=== PATIENT | female | born 1995 | race Caucasian/White ===

== ENCOUNTER 2025-06-14 19:25 | Inpatient (IN) | payer OTHER, SELFPAY ==
[2025-06-14 19:20] VITALS: BMI 41.3
--- OUTSIDE RECORDS SUMMARY | 2025-06-14 19:29 | XMS RPT_ITS | CCD ---
Author Organization [facility] Inform ion [facility] Care Team Providers Care Gem Setter Name Role Phone LowellBrian blanchard Unavailable Unavailable Asia Jason Unavailable Unavailable Maryjane Jasonn Unavailable Unavailable ALBERT MANAGER GENERATION-CAR REPOSSESSOR, SUSY S Primary Care Physicia n Unavailable Primary Care Provider Unavailabl e Unavailable Primary Care Provider Unavailabl e ALBERT MANAGER GENERATION-CAR REPOSSESSOR, SUSY S Primary Care Unava ilable IVAN MANAGER GENERATION-CAR REPOSSESSORSOFIA Attending Unavailab good Albert CAR REPOSSESSOR, Susy S Primary Care Provider FABIAN, MARY KATE Referring Unavailable ALBERT, SUSY S Primary Care Unavailable SUSY MADDOX Attending Unavailable FABIAN, MARY KATE Referring Unavailable ALBERT, SUSY S Primary Care Unavailable FABIAN, MARY KATE Referring Unavailable ALBERT, SUSY S Primary Care Unavailable SUSY MADDOX Attending Unavailable FABIAN, MARY KATE Referring Unavailable ALBERT, SUSY S Primary Care Unavailable LEI, DAYLIN Referring Unavailable ALBERT, SUSY S Primary Care Unavailable KATLIN BURNS Attending Unavailable WISWELL, AMRITA Referring Unavailable ALBERT, SUSY S Primary Care Unavailable WISWELL, AMRITA Referring Unavailable ALBERT, SUSY S Primary Care Unavailable KAITLIN TALLEY Attending Unavailable LEI, DAYLIN Referring Unavailable ALBERT, SUSY S Primary Care Unavailable FABIAN, MARY KATE Attending Unavailable SELF Referring Unavailable ALBERT, SUSY S Primary Care Unavailable FABIAN, MARY KATE Referring Unavailable ALBERT, SUSY S Primary Care Unavailable LEI, DAYLIN Referring Unavailable ALBERT, SUSY S Primary Care Unavailable August, Referring Unavailable ALBERT, SUSY S Primary Care Unavailable WISWELL, AMRITA Attending Unavailable ALBERT, SUSY S Primary Care Unavailable AMRITA SULLIVAN Attending Unavailable MARY KATE PERALTA Referring Unavailable SUSY PRICE Primary Care Unavailable DAYLIN LOPEZ Attending Unavailable MARY KATE PERALTA Referring Unavailable SUSY PRICE Primary Care Unavailable Allergies Allergy Classification Reported Allergen(s) Allergy Type Date of Onset Reaction(s) Facility (5 sources) Amoxicillin / Clavulanate; Translations: [amoxicillin-cla vulanate] Drug Allergy vomiting [facility] (18 sources) Amoxicillin; Translations: [AMOXICILLIN] Drug Allergy 11-26-2018 GI Upset, Vomiting [facility] Medications Current Medications Medication Drug Class(es) Dates Sig (Normalized) Sig (Original) acetaminophen 500 mg oral tablet (1 source) Start: 05-14-2024 take 1 mg by mouth every six hours as needed for fever acetaminophen 500 mg oral tablet mg = tab(s), Oral, q6hr, PRN as needed for fever, 0 Refill(s) Start Date: 05/14/24 Status: Ordered Repeat number: 1 aspirin 81 mg delayed release oral tablet (15 sources) Platelet Aggregation Inhibitor, Nonsteroidal Anti-inflammatory Drug Start: 11-03-2024 take 1 tablet by mouth once daily aspirin, enteric coated (ECOTRIN LOW STRENGTH) 81 mg EC tablet Indications: with uncertain dates, antepartum (HCC) Take 1 tablet by mouth once daily. 90 tablet 3 11/03/2024 Active azithromycin 500 mg oral tablet (1 source) Macrolide Antimicrobial Start: 06-15-2021 End: 06-18-2021 Zithromax 500 mg oral tablet Dose : 500 mg = 1 tab(s), Oral, qDay, X 3 day(s), # 3 tab(s), 0 Refill(s), 06/18/21 14:30:00 EST, Pharmacy: [id number], 160, cm, 06/09/21 8:22:00 EST, Height, 100, kg, 06/09/21 8:22:00 EST, Dosing Weight Start Date: 06/15/21 Stop Date: 06/18/21 Status: Ordered busPIRone hydrochloride 15 mg oral tablet (5 sources) Start: 10-24-2022 End: 04-11-2024 take 1 tablet by mouth twice daily busPIRone (BUSPAR) 15 mg tablet Take 15 mg by mouth twice daily. 10/24/2022 04/11/2024 Discontinued Start: 08-11-2021 End: 01-28-2023 busPIRone 10 mg oral tablet Dose : 10 mg = 1 tab(s), Oral, BID, # 180 tab(s), 3 Refill(s), Pharmacy: [id number], 163, cm, 02/02/22 7:36:00 EDT, Height, kg, 02/02/22 7:36:00 EDT, Dosing Weight Start Date: 02/02/22 Stop Date: 01/28/23 Status: Ordered Comment on above: Take 15 mg by mouth twice daily. Take 10 mg by mouth twice daily. cephalexin 500 mg oral capsule (1 source) Cephalosporin Antibacterial Start: 06-13-2024 End: 06-20-2024 cephalexin 500 mg oral capsule Dose : 500 mg = 1 cap(s), Oral, q12h, X 7 day(s), # 14 cap(s), 0 Refill(s), 06/20/24 12:07:00 PM EST, Pharmacy: [id number], UTI (urinary tract infection), 163, cm, 06/13/24 11:39:00 EST, Height, 102.1, kg, 06/13/24 11:39:00 EST, Dosing Weight Start Date: 06/13/24 Stop Date: 06/20/24 Status: Ordered Quantity: 14.0 Unit: cap(s) Repeat number: 1 Indication: Urinary tract infection, site not specified {24 (drospirenone 3 MG / Ethinyl Estradiol 0.02 MG Oral Tablet) / 4 (Inert Ingredients 1 MG Oral Tablet) } Pack [Loryna Day] (3 sources) Progestin, Estrogen Start: 04-25-2024 Loryna 3 mg-0.02 mg oral tablet Dose = 1 tab(s), TAKE 1 TABLET BY MOUTH ONCE DAILY Start Date: 04/25/24 Status: Ordered Repeat number: 1 Start: 04-11-2024 End: 11-03-2024 take 1 tablet by mouth once daily Drospirenone-Ethinyl Estradiol (Sylvia CABALLERO,) 3-0.02 mg per tablet Indications: Encounter for gynecological examination (general) (routine) without abnormal findings Take 1 tablet by mouth once daily. 30 tablet 3 04/11/2024 11/03/2024 Discontinued Start: 04-11-2024 take 1 tablet by mike th once daily Drospirenone-Ethinyl Estradiol (FEDERICO, 28,) 3-0.02 mg per tablet Indications: Encounter for gynecological examination (general) (routine) without abnormal findings Take 1 tablet by mouth once daily. 30 tablet 3 04/11/2024 Active Ethinyl Estradiol / norgestimate (5 sources) Progestin, Estrogen Start: 10-31-2022 End: 04-11-2024 take 1 tablet by mouth once daily SPRINTEC 0.25-35 mg-mcg per tablet Take 1 tablet by mouth once daily. 28 tablet 11 10/31/2022 04/11/2024 Discontinued Start: 10-31-2022 take 1 tablet by mike th once daily SPRINTEC 0.25-35 mg-mcg per tablet Take 1 tablet by mouth once daily. 28 tablet 11 10/31/2022 Active Start: 09-06-2021 End: 10-31-2022 take 1 tablet by mouth once daily SPRINTEC 0.25-35 mg-mcg per tablet Take 1 tablet by mouth once daily. 28 tablet 11 09/06/2021 10/31/2022 Discontinued Start: 07-17-2019 [place]-Linyah 0. 25 mg-35 mcg oral tablet See Instructions, # 112 tab(s), Refill #: 3 Total Refills: 3, take 1 tablet by mouth once daily, DAMIAN URENA-[facility] Start Date: 07/17/19 Status: Ordered Comment on above: Take 1 tablet by mike th once daily. FLUoxetine 10 mg oral capsule (4 sources) Serotonin Reuptake Inhibitor Start: 03-06-2025 take 1 capsule by mouth once daily FLUoxetine (PROZAC) 10 mg capsule Take 1 capsule by mouth once daily. 90 capsule 1 03/06/2025 Active Start: 04-24-2023 End: 11-03-2024 take 1 capsule by mouth once daily FLUoxetine (PROZAC) 40 mg capsule Take 40 mg by mouth once daily. 06/21/2023 11/03/2024 Discontinued hyoscyamine sulfate 0.125 mg oral tablet (6 sources) Start: 02-02-2022 End: 04-11-2024 hyoscyamine (LEVSIN) 0.125 m g tablet 0.125 mg. 02/02/2022 04/11/2024 Discontinued Start: 10-25-2020 End: 10-20-2021 Levsin 0.125 mg oral tablet Dose : 0.125 mg = 1 tab(s), Oral, QID, # 40 tab(s), 11 Refill(s), Pharmacy: [facility], 160, cm, 10/25/20 14:34:00 EDT, Height, kg, 10/25/20 14:34:00 EDT, Dosing Weight Start Date: 10/25/20 Stop Date: 10/20/21 Status: Ordered Comment on above: 0.125 mg. Lactobac no.41/Bifidobact no.7 (PROBIOTIC-10 ORAL) (17 sources) take 1 tablet by mike th once daily Lactobac no.41/Bifidobact no.7 (PROBIOTIC-10 ORAL) Take 1 tablet by mouth once daily. Active Lactobac no.41/B ifidobact no.7 (PROBIOTIC-10 ORAL) Take by mouth. 0 Active Comment on above: Take by mouth. [place]-Linyah 0.25 mg-35 mcg oral tablet (2 sources) Start: 07-17-2019 [place] 0.25 mg-35 mcg oral tablet See Instructions, # 112 tab(s), Refill #: 3 Total Refills: 3, take 1 tablet by mouth once daily, DAMIAN URENA-1954 [facility] Start Date: 07/17/19 Status: Ordered Multivitamin preparation (5 sources) Start: 08-03-2020 take 1 tablet by mouth once daily Multivitamin Dose = 1 tab(s), Oral, Daily, 0 Refill(s) Start Date: 08/03/20 Status: Ordered Repeat number: 1 Start: 08-03-2020 take 1 tablet by mike th once daily Multivitamin Dose = 1 tab(s), Oral, Daily, 0 Refill(s) Start Date: 08/03/20 Status: Ordered Nasacort Allergy 24HR (1 source) Start: 04-24-2023 Nasacort Aller gy 24HR qDay, 0 Refill(s) Start Date: 04/24/23 Status: Ordered Repeat number: 1 PNV no.95/ferrous fum/folic ac ( ORAL) (10 sources) PNV no.95/ferrou s fum/folic ac ( ORAL) Take by mouth. Active predniSONE 10 mg oral tablet (1 source) Start: 06-15-2021 End: 06-21-2021 prednisone 10mg tab (TAPER) Taper 12-29-85-30-20-10 x 1 day, Oral, qAM, # 21 tab(s), 0 Refill(s), Pharmacy: [facility], 160, cm, 06/09/21 8:22:00 EST, Height, kg, 06/09/21 8:22:00 EST, Dosing Weight Start Date: 06/15/21 Stop Date: 06/21/21 Status: Ordered Probiotic (3 sources) Start: 08-11-2021 Probiotic 0 Re fill(s) Start Date: 08/11/21 Status: Ordered Repeat number: 1 Start: 08-11-2021 Probiotic 0 Re fill(s) Start Date: 08/11/21 Status: Ordered Promethazine (1 source) Phenothiazine Start: 06-09-2021 End: 06-16-2021 take 1 dose by mouth every six hours as needed for cough Promethazine DM 6.25 mg-15 mg/5 mL oral syrup Dose = 5 mL, Oral, q6h, PRN for cough, X 7 day(s), # 120 mL, 0 Refill(s), Pharmacy: [facility], Cough, 160, cm, 06/09/21 8:22:00 EST, Height, kg, 06/09/21 8:22:00 EST, Dosing Weight Start Date: 06/09/21 Stop Date: 06/16/21 Status: Ordered sulfamethoxazole 800 mg / trimethoprim 160 mg oral tablet (2 sources) Dihydrofolate Reductase Inhibitor Antibacterial, Sulfonamide Antimicrobial Start: 06-16-2024 End: 06-23-2024 take 1 tablet by mouth twice daily Bactrim DS 800 mg-160 mg oral tablet Dose = 1 tab(s), Oral, BID, X 7 day(s), # 14 tab(s), 0 Refill(s), Pharmacy: [facility], 163, cm, 06/13/24 11:39:00 EST, Height, 102.1, kg, 06/13/24 11:39:00 EST, Dosing Weight Start Date: 06/16/24 Stop Date: 06/23/24 Status: Ordered Quantity: 14.0 Unit: tab(s) Repeat number: 1 Start: 02-07-2022 End: 02-12-2022 take 1 tablet by mouth every twelve hours Bactrim DS 800 mg-160 mg oral tablet Dose = 1 tab(s), Oral, q12h, X 5 day(s), # 10 tab(s), 0 Refill(s), Pharmacy: [facility], 163, cm, 02/07/22 10:26:00 EDT, Height, 96.8 Start Date: 02/07/22 Stop Date: 02/12/22 Status: Ordered Triamcinolone (17 sources) Corticosteroid triamcinolone ac etonide (NASACORT NASAL) Use in the nose. Active triamcinolone ac etonide (NASACORT NASAL) Use in the nose. 0 Active Comment on above: Use in the nose. Completed/Discontinued Medications Medication Drug Class(es) Dates Sig (Normalized) Sig (Original) Multivitamin capsule (11 sources) End: 01-12-2025 take 1 capsule by mouth once daily Multivitamin capsule Take 1 capsule by mouth once daily. 01/12/2025 Discontinued take 1 capsule by mouth once pricilla ly Multivitamin capsule Take 1 capsule by mouth once daily. Active take 1 capsule by mouth once pricilla ly Multivitamin capsule Take 1 capsule by mouth once daily. 0 Active Comment on above: Take 1 capsule by mo ut once daily. Problems Active Problems Problem Classification Problem Date Documented Da te Episodic/Chronic Anxiety disorders (5 sources) Anxiety; Translations: [Generalized anxiety disorder] 08-04-2019 Chronic Comment on above: situational Diabetes or abnormal glucose tolerance complicating ; childbirth; or the puerperium (1 source) Abnormal glucose complicating ; Translations: [Abnormal glucose complicating (HCC)] Onset: 04-03-2025 Episodic Genitourinary symptoms and ill-defined conditions (2 sources) Painful micturition, unspecified; Translations: [Painful micturition, unspecified] Onset: 06-13-2024 Episodic Lymphadenitis (5 sources) Cervical lymphadenopathy 08-04-2019 Episodic Malaise and fatigue (3 sources) Fatigue 11-15-2021 Episodic Menstrual disorders (3 sources) Missed period 11-15-2021 Chronic Mood disorders (1 source) Mood disorders; Translations: [Depression affecting (HCC)] Onset: 03-06-2025 Other complications of (17 sources) Obesity; Translations: [Obesity complicating , unspecified trimester] Onset: 12-09-2024 12-09-2024 Chronic Other complications of (5 sources) Maternal obesity complicating , childbirth and the puerperium, antepartum; Translations: [Obesity complicating , second trimester] 02-02-2025 Chronic Other complications of (2 sources) Obesity complicating , unspecified trimester; Translations: [Severe obesity due to excess calories affecting , antepartum (HCC)] Onset: 12-09-2024 Chronic Other complications of (1 source) Obesity complicating , third trimester; Translations: [Obesity affecting in third trimester, unspecified obesity type (HCC)] Onset: 04-03-2025 Chronic Other complications of (1 source) Obesity complicating , second trimester; Translations: [Obesity affecting in second trimester, unspecified obesity type (HCC)] Onset: 02-02-2025 Chronic Other complications of (13 sources) Healthcare supervision finding; Translations: [Supervision of high risk due to social problems, unspecified trimester] Onset: 11-03-2024 11-03-2024 Episodic Other complications of (13 sources) Rubella non-immune; Translations: [Supervision of other high risk pregnancies, unspecified trimester] Onset: 12-11-2024 12-11-2024 Episodic Other complications of (2 sources) Depressive disorder in mother complicating ; Translations: [Other mental disorders complicating , unspecified trimester] Onset: 03-06-2025 03-06-2025 Episodic Other complications of (1 source) Supervision of high risk , unspecified, third trimester; Translations: [Supervision of high risk in third trimester (HCC)] Onset: 05-01-2025 Episodic Other complications of (1 source) Supervision of high risk , unspecified, second trimester; Translations: [Supervision of high risk in second trimester ([facility])] Onset: 04-03-2025 Episodic Other complications of (1 source) Other mental disorders complicating , unspecified trimester; Translations: [Depression affecting ([facility])] Onset: 03-06-2025 Episodic Other eye disorders (1 source) Disorder of eye 01-24-2023 Episodic Other gastrointestinal disorders (5 sources) Irritable bowel syndrome 08-04-2019 Chronic Other nutritional; endocrine; and metabolic disorders (1 source) Morbid (severe) obesity due to excess calories; Translations: [Severe obesity due to excess calories affecting , antepartum ([facility])] Onset: 05-01-2025 Chronic Other nutritional; endocrine; and metabolic disorders (1 source) Body mass index (BMI) 40.0-44.9, adult; Translations: [BMI 40.0-44.9, adult ([facility])] Onset: 05-01-2025 Chronic Other nutritional; endocrine; and metabolic disorders (1 source) Body mass index (BMI) 39.0-39.9, adult; Translations: [BMI 39.0-39.9,adult] Onset: 11-03-2024 Chronic Other screening for suspected conditions (not mental disorders or infectious disease) (5 sources) Cancer cervix screening status; Translations: [Encounter for screening for malignant neoplasm of cervix] Onset: 11-03-2024 11-03-2024 Episodic Other upper respiratory disease (1 source) Nasal sinus problem 08-04-2022 Episodic Other upper respiratory infections (3 sources) Acute maxillary sinusitis; Translations: [Upper respiratory infection] 05-14-2024 Episodic Residual codes; unclassified (4 sources) Gestation period, 7 weeks; Translations: [Less than 8 weeks gestation of ] 11-03-2024 Episodic Residual codes; unclassified (1 source) Gestation period, 16 weeks; Translations: [16 weeks gestation of ] 01-08-2025 Episodic Residual codes; unclassified (1 source) Gestation period, 17 weeks; Translations: [17 weeks gestation of ] 01-12-2025 Episodic Residual codes; unclassified (2 sources) Gestation period, 20 weeks; Translations: [20 weeks gestation of ] 02-02-2025 Episodic Residual codes; unclassified (1 source) Gestation period, 23 weeks; Translations: [23 weeks gestation of ] 02-26-2025 Episodic Residual codes; unclassified (1 source) 32 weeks gestation of ; Translations: [32 weeks gestation of (HCC)] Onset: 05-01-2025 Episodic Residual codes; unclassified (1 source) 23 weeks gestation of ; Translations: [23 weeks gestation of (HCC)] Onset: 04-03-2025 Episodic Residual codes; unclassified (1 source) 28 weeks gestation of ; Translations: [28 weeks gestation of (HCC)] Onset: 04-03-2025 Episodic Unclassified (15 sources) [facility] Education - COMMON Onset: 11-03-2024 11-03-2024 Unclassified (15 sources) Education - [place] Onset: 11-03-2024 11-03-2024 Unclassified (1 source) Rubella non-immune status, antepartum (HCC); Translations: [Rubella non-immune status, antepartum ([facility])] Onset: 12-11-2024 Urinary tract infections (1 source) Urinary tract infectious disease 02-07-2022 Episodic Past or Other Problems Problem Classification Problem Date Documented Date Episodic/Chronic Cancer of cervix (8 sources) Atypical squamous cells of undetermined significance on cervical Papanicolaou smear; Translations: [Atypical squamous cells of undetermined significance on cytologic smear of cervix ([facility]-US)] Onset: 02-02-2025 01-04-2025 Episodic Immunizations and screening for infectious disease (9 sources) Patient encounter status; Translations: [Encounter for screening for infections with a predominantly sexual mode of transmission] Onset: 11-03-2024 04-11-2024 Episodic Other complications of (7 sources) High risk ; Translations: [Supervision of high risk , unspecified, second trimester] Onset: 11-03-2024 02-02-2025 Episodic Other complications of (1 source) Supervision of high risk due to social problems, unspecified trimester; Translations: [Supervision of high risk due to social problems, antepartum (HCC)] Onset: 02-02-2025 Episodic Other complications of (1 source) Supervision of other high risk pregnancies, unspecified trimester; Translations: [Rubella non-immune status, antepartum (HCC)] Onset: 12-11-2024 Episodic Other nutritional; endocrine; and metabolic disorders (16 sources) Body mass index 30+ - obesity; Translations: [Body mass index (BMI) 39.0-39.9, adult] Onset: 11-03-2024 Resolved: 02-02-2025 11-03-2024 Chronic Other and delivery including normal (2 sources) with uncertain dates; Translations: [Encounter for supervision of normal , unspecified, unspecified trimester] Onset: 12-09-2024 11-03-2024 Episodic Residual codes; unclassified (1 source) Less than 8 weeks gestation of ; Translations: [7 weeks gestation of (HCC)] Onset: 02-02-2025 Episodic Residual codes; unclassified (1 source) 20 weeks gestation of ; Translations: [20 weeks gestation of (HCC)] Onset: 02-02-2025 Episodic Residual codes; unclassified (1 source) 17 weeks gestation of ; Translations: [17 weeks gestation of (HCC)] Onset: 01-12-2025 Episodic Sexually transmitted infections (not HIV or hepatitis) (1 source) Cervical high risk human papillomavirus (HPV) DNA test positive; Translations: [ASCUS with positive high risk HPV cervical] Onset: 02-02-2025 Episodic Results Test Name Value Interpretation Reference Range Facility GLUCOSE GESTATIONAL, 1 HOURo n 04-08-2025 Glucose 1 Hr post Unsp challenge [Mass/Vol] 129 mg/dL Normal 74-179 [facility] Comment on above: Order Comment: Speci men Type: BLOOD SPECIMENOrdering Facility: [facility] Address: [address] [place] [address] Result Comment: [facility] Congress of Obstetricians and Gynecologists (Ashlyn/Parth) guidelines state gestational diabetes mellitus is present when 2 or more of the plasma glucose concentrations meet or exceed the following levels: fastin mg/dl, 1 hr: 180 mg/dl, 2 hr: 155 mg/dl, and 3 hr: 140 mg/dl. Performed By: #### G TGST1 ####[facility] FANNY NOONANJOSH [id number] [place] [address] [place] GLUCOSE GESTATIONAL, 2 HOURo n 04-08-2025 Glucose 2 Hr post Unsp challenge [Mass/Vol] 149 mg/dL Normal 74-154 [facility] Comment on above: Order Comment: Daron miramontes Type: BLOOD SPECIMENOrdering Facility: [facility] Address: [address] [place] [address] Result Comment: [facility] Congress of Obstetricians and Gynecologists (Goldberg/Boomstan) guidelines state gestational diabetes mellitus is present when 2 or more of the plasma glucose concentrations meet or exceed the following levels: fastin mg/dl, 1 hr: 180 mg/dl, 2 hr: 155 mg/dl, and 3 hr: 140 mg/dl. Performed By: #### G TGST2 ####[facility] [id number] [place] [address] [place] GLUCOSE GESTATIONAL, 3 HOURo n 04-08-2025 Glucose 3 Hr post Unsp challenge [Mass/Vol] 138 mg/dL Normal 74-139 [facility] Comment on above: Order Comment: Daron miramontes Type: BLOOD SPECIMENOrdering Facility: [facility] Address: [address] [place] [address] Result Comment: [facility] Congress of Obstetricians and Gynecologists ([facility]) guidelines state gestational diabetes mellitus is present when 2 or more of the plasma glucose concentrations meet or exceed the following levels: fastin mg/dl, 1 hr: 180 mg/dl, 2 hr: 155 mg/dl, and 3 hr: 140 mg/dl. Performed By: #### G TGST3 ####[facility] [id number] [place] [address] [place] GLUCOSE GESTATIONAL, FASTING on 04-08-2025 Glucose post fast [Mass/Vol] 86 mg/dL Normal 74-94 [facility] Comment on above: Order Comment: Daron miramontes Type: BLOOD SPECIMENOrdering Facility: [facility] Address: [address] [place] [address] Result Comment: [facility] Congress of Obstetricians and Gynecologists ([place]berg/Coustan) guidelines state gestational diabetes mellitus is present when 2 or more of the plasma glucose concentrations meet or exceed the following levels: fastin mg/dl, 1 hr: 180 mg/dl, 2 hr: 155 mg/dl, and 3 hr: 140 mg/dl. Performed By: #### G [facility] ####[facility] FANNY GOFF [id number] [place] [id number] [place] Mira 04-07-2025 CNPN Telephone (OBGYWM) JES FRANKS ([id number]) 1995 F Date Time Provider Department 04/07/25 KATLIN BURNS OBASHLEE During your visit today, we recorded the following information about you: Viry Hancock RN 04/07/2025 10:29 AM Signed S: Pt calling stating she has not felt well the past few days. 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 Feels weak. When sitting feels fine. Pt states she failed 1 hr gtt, but has not had 3 hr test done yet. Pt voiced that baby was active, denied vaginal bleeding/abdominal pain. Pt left work yesterday because she felt so bad. B: 29w1d. 1 Hr Fpz=[id number]. 3 hr gtt scheduled 04/08/25. A: Pt denies having passed out. Denies headaches/ denies blood pressure issues stating once she was being monitored for BP issues, but anxiety was the problem-then was restarted on Prozac on 03/06/25 AND BP has since improved.States this AM she ate ate oyster crackers with dry ranch seasoning/has not had any protein. Pt states she feels hydrated. R: Advised Pt that 3 hr test needs completed, and scheduled for tomorrow morning at 7:45am. Reviewed instructions for test with patient. Advised that patient limit carbohydrates and eat diet high in protein, stay hydrated, rest, and if she experiencing extreme dizziness/lightheade dness or has any near passing out episodes that she needs to go to the ER. Informed Pt that message would be routed to o/c provider to inform her of this and if additional guidance was to be given, we would call her. Please advise. FARIDA Viveros Karmon, MD 04/07/2025 12:10 PM Signed I agree with recommendations for eating protein rich snacks AND staying hydrated. Patient could have a mild viral illness. If she is not feeling well she may want to delay her 3hr GTT a few days or until next week. MD Sander Conte Jennifer, RN 04/07/2025 12:17 PM Signed Patient notified. States she wants to keep her lab appt tomorrow. Daylin Boucher RN Allergies As of Date: 04/07/2025 Noted Allergy Reaction AMOXICILLIN 11/26/2018 8 - GI Upset 11 - Vomiting Date Reviewed: 04/03/2025 Reviewed by: Katlin Burns MD - Fully Assessed Prescriptions as of 04/07/2025 - FLUoxetine (PROZAC) 10 mg capsule Take 1 capsule by mouth once daily. - PNV no.95/ferrous fum/folic ac ( ORAL) Take by mouth. - aspirin, enteric coated (ECOTRIN LOW STRENGTH) 81 mg EC tablet Take 1 tablet by mouth once daily. - triamcinolone acetonide (NASACORT NASAL) Use in the nose. - Lactobac no.41/Bifidobact no.7 (PROBIOTIC-10 ORAL) Take 1 tablet by mouth once daily. Problem List As Of Date 04/07/2025 Noted Resolved Supervision of high risk in second tr*11/03/2024 BMI 39.0-39.9,adult [Z68.39] 11/03/2024 02/02/2025 Obesity in (HCC) [O99.210] 12/09/2024 Rubella non-immune status, antepartum (HCC) [Z3*12/11/2024 ASCUS with positive high risk HPV cervical [R87*02/26/2025 Depression affecting (HCC) [O99.340, *03/06/2025 Abnormal glucose complicating (HCC) [*04/03/2025 Encounter Status:Closed by DAYLIN BOUCHER on 04/07/25 Normal [facility] CBC panel Auto (Bld)on 04-03 Erythrocyte distribution width (RBC) [Ratio] 13.4 % Normal 11.5-15.0 [facility] Comment on above: Order Comment: Speci men Type: BLOOD SPECIMENOrdering Facility: [facility] Address: [address] [place] [address] Performed By: #### 5 8410-2 ####[facility] [id number] [place] [address] [place] Hematocrit (Bld) [Volume fraction] 35.1 % Low 36.0-46.0 [facility] Comment on above: Order Comment: Speci men Type: BLOOD SPECIMENOrdering Facility: [facility] Address: [address] [place] [address] Performed By: #### 5 8410-2 ####[facility] [id number] [place] [address] [place] Hemoglobin (Bld) [Mass/Vol] 11.8 g/dL Normal 11.5-15.5 [facility] Comment on above: Order Comment: Speci men Type: BLOOD SPECIMENOrdering Facility: [facility] Address: [address] [place] [address] Performed By: #### 5 8410-2 ####[facility] [id number] [place] [address] [place] MCH (RBC) [Entitic mass] 29.1 pg Normal 26.0-34.0 [facility] Comment on above: Order Comment: Speci men Type: BLOOD SPECIMENOrdering Facility: [facility] Address: [address] [place] [address] Performed By: #### 5 8410-2 ####[facility] [id number] [place] [address] [place] MCHC (RBC) [Mass/Vol] 33.6 g/dL Normal 30.5-36.0 [facility] Comment on above: Order Comment: Speci men Type: BLOOD SPECIMENOrdering Facility: [facility] Address: [address] [place] [address] Performed By: #### 5 8410-2 ####[facility] [id number] [place] [address] [place] MCV (RBC) [Entitic vol] 86.7 fL Normal 80.0-100.0 [facility] Comment on above: Order Comment: Speci men Type: BLOOD SPECIMENOrdering Facility: [facility] Address: [address] [place] [address] Performed By: #### 5 8410-2 ####[facility] [id number] [place] [address] [place] Nucleated RBC (Bld) [#/Vol] 10*3/uL Normal <0.01 [facility] Comment on above: Order Comment: Speci men Type: BLOOD SPECIMENOrdering Facility: [facility] Address: [address] [place] [address] Performed By: #### 5 8410-2 ####[facility] [id number] [place] [address] [place] Platelet mean volume (Bld) [Entitic vol] 9.7 fL Normal 9.0-12.7 [facility] Comment on above: Order Comment: Speci men Type: BLOOD SPECIMENOrdering Facility: [facility] Address: [address] [place] [address] Performed By: #### 5 8410-2 ####[facility] [id number] [place] [address] [place] Platelets (Bld) [#/Vol] 394 10*3/uL Normal 150-400 [facility] Comment on above: Order Comment: Speci men Type: BLOOD SPECIMENOrdering Facility: [facility] Address: [address] [place] [address] Performed By: #### 5 8410-2 ####[facility] [id number] [place] [address] [place] RBC (Bld) [#/Vol] 4.05 10*6/uL Normal 3.90-5.20 [facility] Comment on above: Order Comment: Speci men Type: BLOOD SPECIMENOrdering Facility: [facility] Address: [address] [place] [address] Performed By: #### 5 8410-2 ####[facility] [id number] [place] [address] [place] WBC (Bld) [#/Vol] 10.72 10*3/uL Normal 3.70-11.00 [facility] Comment on above: Order Comment: Speci men Type: BLOOD SPECIMENOrdering Facility: [facility] Address: [address] [place] [address] Performed By: #### 5 8410-2 ####[facility] [id number] [place] [address] [place] Mira 04-03-2025 DEBBIN Telephone (OBGYWM) JES FRANKS ([id number]) 1995 F Date Time Provider Department 04/03/25 AMRITA SULLIVAN During your visit today, we recorded the following information about you: Amrita Sullivan MD 04/03/2025 5:07 PM Signed See result note 3 hr GTT ordered Viry Hancock RN 04/03/2025 5:11 PM Signed Folkstr message sent to Pt. Viry Hancock RN Allergies As of Date: 04/03/2025 Noted Allergy Reaction AMOXICILLIN 11/26/2018 8 - GI Upset 11 - Vomiting Date Reviewed: 04/03/2025 Reviewed by: Katlin Burns MD - Fully Assessed Reason for Visit: Orders [681] Primary Visit Diagnosis:28 weeks gestation of (HCC) [Z3A.28] Other Visit Diagnosis:Abnormal glucose complicating ([facility]) [O99.810] Order(s):GEST GLUC RICK, 3-HR, 100 GM, FASTING [SQGTGST3] Order #: [id number] FUTURE Prescriptions as of 04/03/2025 - FLUoxetine (PROZAC) 10 mg capsule Take 1 capsule by mouth once daily. - PNV no.95/ferrous fum/folic ac ( ORAL) Take by mouth. - aspirin, enteric coated (ECOTRIN LOW STRENGTH) 81 mg EC tablet Take 1 tablet by mouth once daily. - triamcinolone acetonide (NASACORT NASAL) Use in the nose. - Lactobac no.41/Bifidobact no.7 (PROBIOTIC-10 ORAL) Take 1 tablet by mouth once daily. Problem List As Of Date 04/03/2025 Noted Resolved Supervision of high risk in second tr*11/03/2024 BMI 39.0-39.9,adult [Z68.39] 11/03/2024 02/02/2025 Obesity in (HCC) [O99.210] 12/09/2024 Rubella non-immune status, antepartum (HCC) [Z3*12/11/2024 ASCUS with positive high risk HPV cervical [R87*02/26/2025 Depression affecting (HCC) [O99.340, *03/06/2025 Abnormal glucose complicating ([facility]) [*04/03/2025 Encounter Status:Closed by AMRITA SULLIVAN on 04/03/25 Normal [facility] GESTATIONAL GLUCOSE SCREEN, 1-HOUR, 50 GRAM, NON-FASTINGon 04-03-2025 Glucose [Mass/Vol] 177 mg/dL High 74-134 [facility] Comment on above: Order Comment: Speci men Type: BLOOD SPECIMENOrdering Facility: [facility] Address: [address] [place] [address] Result Comment: Sara [facility] Congress of Obstetricians and Gynecologists (Ashlyn/Parth) guidelines state a gestational diabetes mellitus positive screen is made, in women not previously diagnosed with overt diabetes, when the 1 hr plasma glucose level is equal to or above 140 mg/dL. The [facility] Echo Vascular Technologist and [facility] [place] recommends a 135 mg/dL cutoff. Performed By: #### G LTGST ####[facility] [id number] [place] [address] [place] Reagin and Treponema pallidu m IgG and IgM [Interp]on 04-03-2025 T. pallidum IgG+IgM IA Ql (S) Non-Reactive Normal Nonreactive [facility] Comment on above: Order Comment: Speci men Type: BLOOD SPECIMENOrdering Facility: [facility] Address: [address] [place] [address] Performed By: #### 7 3752-8 ####[facility] [id number] [place] [address] [place] Reagin+T pallidum IgG+IgM Se rPl-Impon 04-03-2025 Reagin and Treponema pallidum IgG and IgM [Interp] Cannot exclude recent Treponemal infection if specimen collected within 7-10 days after appearance of suspect lesions or 2-3 weeks after an exposure. Clinical correlation is required. Normal [facility] Comment on above: Order Comment: Speci men Type: BLOOD SPECIMENOrdering Facility: [facility] Address: [address] [place] [address] Performed By: #### 7 3752-8 ####[facility] [id number] [place] [id number] [place] CNOVon 02-26-2025 CNOV Office Visit (OBGYWM) JES FRANKS ([id number]) 1995 F Date Time Provider Department 02/26/25 3:40 PM AMRITA SULLIVAN During your visit today, we recorded the following information about you: Blood pressure Weight 118/72 102.5 kg Shilpa JacquieYELENA wilson 02/26/2025 3:26 PM Signed YOUR RECOVERY It may take a few weeks for your cervix to heal. While your cervix heals, you may have: - Vaginal bleeding (less than a normal menstrual period) - Mild cramping - A brown-black vaginal discharge (similar to coffee grounds) which is a result of the paste used to help stop bleeding from the procedure Do NOT put anything in the vagina for 1 week after your colposcopy if your doctor does a biopsy of your cervix. This includes sex, tampons, and douches. If you have any discomfort, you may take an over the counter pain medication (motrin, advil, ibuprofen, tylenol, etc). If this does not relieve your discomfort, contact your doctor's office for a prescription strength pain medication. It is okay to wear a sanitary pad until the discharge and spotting stops. RISKS Although problems seldom occur with colposcopy, there can be some complications. You may feel faint during and shortly after the procedure as well as have some bleeding and vaginal discharge after the procedure. There is also a risk of infection after the procedure. These complications are rare and can be easily treated. You should contact you doctor is you have any of the following: - Heavy bleeding (more than your normal period) - Bleeding with clots - Severe abdominal pain - Fever (more than 100.4F) - Foul smelling vaginal discharge RESULTS If a biopsy was taken, we will have the results of your biopsy in 1-2 weeks. If you do not hear the results of your biopsy after 2 weeks, please contact your physicians office for the results. Depending on the biopsy results, your doctor will determine your follow up plan which may include further testing or treatments. STAYING HEALTHY After the procedure, you will need to see your doctor for follow up visits during the year. At these visits your doctor will check the health of your cervix with a pap smear. After three normal pap smears, your doctor will allow you to return to having exams once a year. If you have another abnormal pap smear, you may need closer follow up for longer or you may need additional treatment. By making a few lifestyle changes after the procedure, you can help protect the health of your cervix: - Have regular pelvic exams and pap smears as ordered by your doctor. - Stop smoking as smoking increases your risk of developing a cancer of the cervix - If you have more than one sexual partner, limit your number of partners and use condoms to reduce your risks of STDs. If you have any additional questions, please contact your doctor's office. Amrita Sullivan MD 02/26/2025 6:[address] Sql Programmer offered: Patient declines. Andre is a 29 year old who presents today for a colposcopy. The patient's last pap smear was ASCUS with positive HPV from October 2024. Patient has a history of abnormal pap: Yes. The patient has had prior treatment: none. 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 Appropriate PPE (Personal Protective Equipment) worn by all providers involved with the procedure. Special equipment not required. Patient/Surrogate Stated/Verified: Patient name, Date of , Relevant allergies, and The intended procedure Time Out: Relevant labs, photos, and/or imaging studies have been reviewed. Intended patient and procedure match the source document(s) (e.g. consent, HANDP, associated studies [imaging, pathology]) match the intended patient and procedure. Consent obtained and matches the intended procedure. Yes. Correct side/site is not applicable. Medications required for this procedure are verified. Fire risk assessed and is not applicable. Implants: are not applicable. Sign Out: Specimens not collected. All instruments, equipment, possible retained foreign bodies are accounted for. Yes. The post-procedure plan of care has been communicated to the patient or surrogate. PROCEDURE: EXTERNAL GENITALIA: Normal in appearance without lesions VAGINA: Normal in appearance without lesions CERVIX: Speculum placed in vagina and excellent visualization of cervix achieved. Cervix swabbed x 3 with 3% acetic acid solution. Cervix grossly normal. Squamocolumnar junction visualized. No punctations, mosaicism or atypical vasculature noted. Minimal acetowhite changes at the 12 o'clock position. BIOPSY: Not done. ECC: not done HEMOSTASIS: N/A Procedure Summary: Patient tolerated procedure well and colposcopy was adequate. (more content not included)... [facility] C[facility] Tele[facility] (OBGYWM) JES FRANKS ([id number]) 1995 F Date Time Provider Department 02/03/25 KATLIN BURNS OBLEILANIWJose During your visit today, we recorded the following information about you: Ruby Andre RN 02/03/2025 4:05 PM Signed Anatomy u/s reviewed. No abnormalities identified. Follow up as clinically indicated. Please notify patient and place on record. Recommendations Serial growth ultrasounds every 4 weeks. Weekly testing starting at 36 weeks. Additional follow-up as clinically indicated. Mary Kate Peralta, PRETTY.Ruby Montgomery RN 02/03/2025 4:05 PM Signed Patient needs order for q 4 week growth ultrasounds. Are they supposed to start now or at 32 weeks? FARIDA Piedra Karmon, MD 02/03/2025 4:27 PM Signed Should start at 32 weeks We can order these at a future visit. Katlin Burns MD Allergies As of Date: 02/03/2025 Noted Allergy Reaction AMOXICILLIN 11/26/2018 8 - GI Upset 11 - Vomiting Date Reviewed: 02/02/2025 Reviewed by: Kayla Miller MA - Fully Assessed Reason for Visit: Results [95] Primary Visit Diagnosis:Supervisio n of high risk in second trimester ([facility]) [O09.92] Other Visit Diagnosis:Obesity affecting in second trimester, unspecified obesity type ([facility]) [O99.212] Prescriptions as of 02/03/2025 - PNV no.95/ferrous fum/folic ac ( ORAL) Take by mouth. - aspirin, enteric coated (ECOTRIN LOW STRENGTH) 81 mg EC tablet Take 1 tablet by mouth once daily. - triamcinolone acetonide (NASACORT NASAL) Use in the nose. - Lactobac no.41/Bifidobact no.7 (PROBIOTIC-10 ORAL) Take 1 tablet by mouth once daily. Problem List As Of Date 02/03/2025 Noted Resolved Supervision of high risk in second tr*11/03/2024 BMI 39.0-39.9,adult [Z68.39] 11/03/2024 02/02/2025 Obesity in (HCC) [O99.210] 12/09/2024 Rubella non-immune status, antepartum (HCC) [O0*12/11/2024 Encounter Status:Closed by RUBY ANDRE on 02/03/25 Normal [facility] Examination level ultrasound on 02-03-2025 Indication Detailed anatomic survey Maternal obesity, BMI >35 Impression The patient is referred for a detailed anatomic survey. - Single, live, intrauterine . - biometry is consistent with the established gestational age. - No malformations were visualized on a complete detailed anatomic survey. - The amniotic fluid volume is normal amount. - The placenta is anterior, fundal. - The Transabdominal cervical length measures 31.4 mm with no evidence of funneling or other dynamic changes. - Not all structural malformations can be detected by ultrasound examination. Recommendations Serial growth ultrasounds every 4 weeks. Weekly testing starting at 36 weeks. Additional follow-up as clinically indicated. Maternal Assessment Height 160 cm Height (ft) 5 ft Height (in) 3 in Physical Exam Initial weight (lb) 223 lb Initial BMI 39.50 kg/m Maternal assessment other: 1 Para 0 REMOTE READ Method Transabdominal ultrasound examination. View: Suboptimal view: limited by maternal body habitus and position Samano . Number of fetuses: 1 Dating LMP on: 09/15/2024 GA by LMP 20 w + 0 d ROGER by LMP: 06/22/2025 GA by prior assessment 20 w + 0 d ROGER by prior assessment: 06/22/2025 Ultrasound examination on: 02/02/2025 GA by U/S based upon: AC, BPD, Femur, HC GA by U/S 19 w + 6 d ROGER by U/S: 06/23/2025 Assigned: based on stated ROGER, selected on 02/02/2025 Assigned GA 20 w + 0 d Assigned ROGER: 06/22/2025 General Evaluation Cardiac activity present. FHR 155 bpm. movements: present. Presentation: breech Placenta: Placental site: anterior, fundal Umbilical cord: Cord vessels: 3 vessel cord Amniotic fluid: Amount of AF: normal amount. MVP 3.3 cm Growth Overview Exam date GA BPD (mm) HC (mm) AC (mm) FL (mm) HL (mm) EFW (g) 01/08/2025 16w 3d 33.2 41% 127.8 41% 108.4 61% 19.4 27% 20.6 46% 150 30% 02/02/2025 20w 0d 44.7 29% 174.1 48% 157.6 74% 29.7 33% 28.3 24% 331 50% Biometry Standard BPD 44.7 mm 19w 4d 29% Hadlock OFD 63.3 mm 20w 2d 83% Nicolaides HC 174.1 mm 19w 6d 48% Dayanna Cerebellum tr 21.0 mm 20w 0d 75% Hill Nuchal fold 5.0 mm AC 157.6 mm 20w 6d 74% Hadlock Femur 29.7 mm 19w 2d 33% Dayanna Humerus 28.3 mm 19w 1d 24% Dayanna EFW 331 g 20w 0d 50% Hadlock EFW (lb) 0 lb EFW (oz) 12 oz EFW by: Hadlock (HC-AC-FL) Extended [employer] Leak Gang 6.1 mm CM 5.5 mm 66% Nicolaides Extremities / Bony Struc FL / HC 0.17 5% Hadlock Other Structures FHR 155 bpm Anatomy Cranium: normal Lateral ventricles: normal Choroid plexus: normal Midline falx: normal Cavum septi pellucidi: normal Cerebellum: normal Cisterna magna: normal Head / Neck Vermis: normal Neck: normal Nuchal fold: normal Lips: normal Profile: normal Nose: normal Face Maxilla: normal Mandible: normal Orbits: normal Lens: normal 4-chamber view: normal RVOT view: normal LVOT view: normal 3-vessel view: normal 6-[id number]-wuqavro view: normal Heart / Thorax Situs: situs solitus (normal) Aortic arch view: normal SVC: normal IVC: normal Cardiac axis: normal Rt lung: normal Lt lung: normal Diaphragm: normal Cord insertion: normal Stomach: normal Kidneys: normal Bladder: normal Genitals: normal Abdomen Abdom. wall: normal Cervical spine: normal Thoracic spine: normal Lumbar spine: normal Sacral spine: normal Arms: normal Legs: normal Rt upper arm: normal Rt forearm: normal Rt hand: normal Rt fingers: normal Lt upper arm: normal Lt forearm: normal Lt hand: normal Lt fingers: normal Rt upper leg: normal Rt lower leg: normal Rt foot: normal Lt upper leg: normal Lt lower leg: normal Lt foot: normal sex: male Wants to know sex: yes Maternal Structures Uterus / Cervix Uterus: Visualized Cervix: Visualized Approach: Transabdominal Cervical length 31.4 mm Other: Patient declined transvaginal ultrasound for cervical length. Ovaries / Tubes / Adnexa Rt ovary: Visualized Lt ovary: Visualized Performed By: Ruby Salgado RDMS, RVT Read By: Bhavana Love M.D. MATERNAL MEDICINE [facility] Examination level ultrasound on 02-02-2025 Radiology Study observation (narrative) [facility]ES FRAN[facility] ([id number]) 1995 F Date Time Provider Department 01/15/25 EMMA VILLELA WCTRMN During your visit today, we recorded the following information about you: Dylan Zafar 01/15/2025 1:35 PM Signed APC 2 Patient reviewed [facility] regarding Colpo, appt scheduled via [facility]. [facility] Allergies As of Date: 01/15/2025 Noted Allergy Reaction AMOXICILLIN 11/26/2018 8 - GI Upset 11 - Vomiting Date Reviewed: 01/12/2025 Reviewed by: Jacquie Massey MA - Fully Assessed Prescriptions as of 01/15/2025 - PNV no.95/ferrous fum/folic ac ( ORAL) Take by mouth. - aspirin, enteric coated (ECOTRIN LOW STRENGTH) 81 mg EC tablet Take 1 tablet by mouth once daily. - triamcinolone acetonide (NASACORT NASAL) Use in the nose. - Lactobac no.41/Bifidobact no.7 (PROBIOTIC-10 ORAL) Take 1 tablet by mouth once daily. Problem List As Of Date 01/15/2025 Noted Resolved Supervision of high risk due to socia*11/03/2024 BMI 39.0-39.9,adult [Z68.39] 11/03/2024 Obesity in (HCC) [O99.210] 12/09/2024 Rubella non-immune status, antepartum (HCC) [O0*12/11/2024 Encounter Status:Closed by DYLAN ZAFAR on 01/15/25 Normal [facility] Examination level ultrasound on 01-08-2025 Indication Early anatomic survey. Maternal obesity, BMI >30 Impression REMOTE READ The patient is referred for an early anatomic survey because of identified risk factors. - Single, live, intrauterine . - biometry is consistent with the established gestational age. - No malformations were visualized on an early anatomic assessment, although some anatomical structures were suboptimally seen as detailed below. - The amniotic fluid volume is normal amount. - The placenta is anterior, fundal. - Not all structural malformations can be detected by ultrasound examination. Recommendations - A detailed exam at 20 weeks for increased risk. - Additional follow up as clinically indicated. Maternal Assessment Height 160 cm Height (ft) 5 ft Height (in) 3 in Physical Exam Initial weight (lb) 223 lb Initial BMI 39.50 kg/m Method Transabdominal ultrasound examination Samano . Number of fetuses: 1 Dating LMP on: 09/15/2024 GA by LMP 16 w + 3 d ROGER by LMP: 06/22/2025 GA by prior assessment 16 w + 3 d ROGER by prior assessment: 06/22/2025 Ultrasound examination on: 01/08/2025 GA by U/S based upon: AC, BPD, Femur, HC GA by U/S 16 w + 2 d ROGER by U/S: 06/23/2025 Assigned: based on stated ROGER, selected on 12/09/2024 Assigned GA 16 w + 3 d Assigned ROGER: 06/22/2025 General Evaluation Cardiac activity present. FHR 153 bpm. movements: present. Presentation: breech Placenta: Placental site: anterior, fundal Umbilical cord: Cord vessels: 3 vessel cord. Insertion site: normal insertion Amniotic fluid: Amount of AF: normal amount Biometry Standard BPD 33.2 mm 16w 2d 41% Hadlock OFD 46.4 mm 16w 1d 59% Nicolaides HC 127.8 mm 16w 1d 41% Dayanna Cerebellum tr 16.8 mm 17w 0d 64% Hill Nuchal fold 2.5 mm AC 108.4 mm 16w 5d 61% Hadlock Femur 19.4 mm 15w 5d 27% Dayanna Humerus 20.6 mm 16w 1d 46% Dayanna EFW 150 g 16w 1d 30% Hadlock EFW (lb) 0 lb EFW (oz) 5 oz EFW by: Hadlock (HC-AC-FL) Extended [employer] Leak [employer] 6.7 mm CM 3.1 mm 18% Nicolaides Extremities / Bony Struc FL / HC 0.15 6% Hadlock Other Structures FHR 153 bpm Anatomy Cranium: normal Lateral ventricles: normal Choroid plexus: normal Midline falx: normal Cerebellum: normal Cisterna magna: normal Lips: normal 4-chamber view: normal RVOT view: normal LVOT view: normal 3-vessel view: suboptimally visualized 7-[id number]-sbaqzel view: normal Heart / Thorax Diaphragm: normal Cord insertion: normal Stomach: normal Kidneys: normal Bladder: normal Cervical spine: normal Thoracic spine: normal Lumbar spine: normal Sacral spine: normal Arms: normal Legs: normal Rt upper arm: normal Rt forearm: normal Rt hand: normal Lt upper arm: normal Lt forearm: normal Lt hand: normal Rt upper leg: normal Rt lower leg: normal Rt foot: normal Lt upper leg: normal Lt lower leg: normal Lt foot: normal Maternal Structures Uterus / Cervix Uterus: Visualized Fibroids: Fibroids identified Uterine fibroid D1 25 mm Uterine fibroid D2 24 mm Uterine fibroid D3 27 mm Uterine fibroid mean 25.3 mm Uterine fibroid vol 8.482 cm Uterine fibroids findings: Anterior. Subserous Approach: Transabdominal Ovaries / Tubes / Adnexa Rt ovary: Visualized Lt ovary: Not visualized Performed By: Luz Alexandre RDMS Read By: Michael Dwyer D.O. MATERNAL MEDICINE [facility] Radiology Study observation (narrative) [facility] Mira 12-22-2024 CNPN Telephone (OBGYWM) JES FRANKS ([id number]) 1995 F Date Time Provider Department 12/22/24 SUSY MADDOX During your visit today, we recorded the following information about you: Allergies As of Date: 12/22/2024 Noted Allergy Reaction AMOXICILLIN 11/26/2018 8 - GI Upset 11 - Vomiting Date Reviewed: 12/09/2024 Reviewed by: Serge Stroud MA - Fully Assessed Prescriptions as of 12/24/2024 - PNV no.95/ferrous fum/folic ac ( ORAL) Take by mouth. - aspirin, enteric coated (ECOTRIN LOW STRENGTH) 81 mg EC tablet Take 1 tablet by mouth once daily. - triamcinolone acetonide (NASACORT NASAL) Use in the nose. - Multivitamin capsule Take 1 capsule by mouth once daily. - Lactobac no.41/Bifidobact no.7 (PROBIOTIC-10 ORAL) Take 1 tablet by mouth once daily. Problem List As Of Date 12/22/2024 Noted Resolved Supervision of high risk due to socia*11/03/2024 BMI 39.0-39.9,adult [Z68.39] 11/03/2024 Obesity in (HCC) [O99.210] 12/09/2024 Rubella non-immune status, antepartum (HCC) [O0*12/11/2024 Encounter Status:Closed by SERGE STROUD on 12/24/24 Normal [facility] Examination level ultrasound on 12-10-2024 Indication First trimester anatomic survey Maternal obesity, BMI >35 Impression The patient is referred for a first trimester anatomy scan including nuchal translucency measurement as clinically indicated. - Single, live, intrauterine . - [place] rump length measurement is consistent with the established gestational age. - A qualitative screen of the nuchal translucency and other anatomic structures was unremarkable on a complete first trimester anatomic assessment. - Not all structural malformations can be detected by ultrasound examination. - A standard anatomic survey at 16 weeks and a detailed exam at 20 weeks is recommended for increased risk. Recommendations - A standard anatomic survey at 16 weeks and a detailed exam at 20 weeks for increased risk. - Additional follow up as clinically indicated. Maternal Assessment Height 160 cm Height (ft) 5 ft Height (in) 3 in Physical Exam Initial weight (lb) 223 lb Initial BMI 39.50 kg/m Maternal assessment other: 1 Para 0 REMOTE READ Method Transabdominal ultrasound examination Samano . Number of fetuses: 1 Dating LMP on: 09/15/2024 GA by LMP 12 w + 1 d ROGER by LMP: 06/22/2025 GA by prior assessment 12 w + 1 d ROGER by prior assessment: 06/22/2025 Ultrasound examination on: 12/09/2024 GA by U/S based upon: CRL GA by U/S 12 w + 4 d ROGER by U/S: 06/19/2025 Assigned: based on stated ROGER, selected on 12/09/2024 Assigned GA 12 w + 1 d Assigned ROGER: 06/22/2025 General Evaluation Cardiac activity present Placenta: anterior Cord vessels: 3 vessel cord Amniotic fluid: normal amount Biometry Standard FHR 158 bpm CRL 60.9 mm 12w 4d 69% [place] First Trimester Anatomy Calvarium: normal Falx cerebri: normal Choroid plexus: normal Profile: normal Nasal bone: normal Retronasal triangle: normal Maxilla: normal Mandible: normal Nuchal translucency: Unremarkable Situs: normal Cardiac position: normal Cardiac axis: normal 4-chamber view: normal 4-chamber view with color: normal 7-eazjal-dhettce view: suboptimal Abdominal cord insertion: normal Stomach: normal Kidneys: normal Color doppler of renal vessels: normal Bladder: normal Color doppler of perivesical umbilical arteries: normal Vertebral alignment: normal Arms: normal Hands: normal Legs: normal Feet: normal Maternal Structures Uterus / Cervix Uterus: Visualized Uterus length 123 mm Uterus width 81 mm Uterus height 67 mm Uterus Vol 350.1 cm Ovaries / Tubes / Adnexa Rt ovary: Visualized Rt ovary D1 29 mm Rt ovary D2 25 mm Rt ovary D3 23 mm Rt ovary Vol 8.7 cm Lt ovary: Visualized Lt ovary D1 28 mm Lt ovary D2 17 mm Lt ovary D3 12 mm Lt ovary Vol 3.1 cm Performed By: Ruby Salgado, BHUPINDER, RVT Read By: Geni Sharp M.D. MATERNAL MEDICINE [facility] CBC W Auto Diff [place] 2024 Hematocrit (Bld) [Volume fraction] 39.4 % Normal 36.0-46.0 [facility] Comment on above: Order Comment: Speci men Type: BLOOD SPECIMENOrdering Facility: [facility] Address: [address] [place] [address] Performed By: #### 5 7021-8 ####[facility] LABIA [id number] [address] Performed By: #### L [id number] ####[facility] LABCL[facility] [id number] [address] [place] CBC W Auto Differential pane l (Bld)on 12-09-2024 Basophils (Bld) [#/Vol] 0.06 10*3/uL Normal <0.11 [facility] Comment on above: Order Comment: Speci men Type: BLOOD SPECIMENOrdering Facility: [facility] Address: [address] [place] [address] Performed By: #### 5 7021-8 ####[facility] LABCLIA [id number] [address] [place] Basophils/100 WBC (Bld) 0.6 % Normal [facility] Comment on above: Order Comment: Speci men Type: BLOOD SPECIMENOrdering Facility: [facility] Address: [address] [place] [address] Performed By: #### 5 7021-8 ####[facility] [id number] [address] [place] Differential cell count method Nom (Bld) Auto Normal [facility] Comment on above: Order Comment: Speci men Type: BLOOD SPECIMENOrdering Facility: [facility] Address: [address] [place] [address] Performed By: #### 5 7021-8 ####[facility] LABCLIA [id number] [place] [address] [place] Eosinophils (Bld) [#/Vol] 0.16 10*3/uL Normal <0.46 [facility] Comment on above: Order Comment: Speci men Type: BLOOD SPECIMENOrdering Facility: [facility] Address: [address] [place] [address] Performed By: #### 5 7021-8 ####[facility] LABCLIA [id number] [place] [address] [place] Eosinophils/100 WBC (Bld) 1.6 % Normal [facility] Comment on above: Order Comment: Speci men Type: BLOOD SPECIMENOrdering Facility: [facility] Address: [address] [place] [address] Performed By: #### 5 7021-8 ####[facility] [id number] [place] [address] [place] Erythrocyte distribution width (RBC) [Ratio] 13.2 % Normal 11.5-15.0 [facility] Comment on above: Order Comment: Speci men Type: BLOOD SPECIMENOrdering Facility: [facility] Address: [address] [place] [address] Performed By: #### 5 7021-8 ####[facility] [id number] [place] [address] [place] Hemoglobin (Bld) [Mass/Vol] 13.1 g/dL Normal 11.5-15.5 [facility] Comment on above: Order Comment: Speci men Type: BLOOD SPECIMENOrdering Facility: [facility] Address: [address] [place] [address] Performed By: #### 5 7021-8 ####[facility] LABCLIA [id number] [place] [address] [place] Immature granulocytes (Bld) [#/Vol] 10*3/uL Normal <0.10 [facility] Comment on above: Order Comment: Speci men Type: BLOOD SPECIMENOrdering Facility: [facility] Address: [address] [place] [address] Performed By: #### 5 7021-8 ####[facility] LABCLIA [id number] [place] [address] [place] Immature granulocytes/100 WBC (Bld) 0.2 % Normal [facility] Comment on above: Order Comment: Speci men Type: BLOOD SPECIMENOrdering Facility: [facility] Address: [address] [place] [address] Performed By: #### 5 7021-8 ####[facility] LABCLIA [id number] [place] [address] [place] Lymphocytes (Bld) [#/Vol] 3.02 10*3/uL Normal 1.00-4.00 [facility] Comment on above: Order Comment: Speci men Type: BLOOD SPECIMENOrdering Facility: [facility] Address: [address] [place] [address] Performed By: #### 5 7021-8 ####[facility] LABCLIA [id number] [place] [address] [place] Lymphocytes/100 WBC (Bld) 30.3 % Normal [facility] Comment on above: Order Comment: Speci men Type: BLOOD SPECIMENOrdering Facility: [facility] Address: [address] [place] [address] Performed By: #### 5 7021-8 ####[facility] LABCLIA [id number] [place] [id number] [place] MCH (RBC) [Entitic mass] 29.7 pg Normal 26.0-34.0 [facility] Comment on above: Order Comment: Speci men Type: BLOOD SPECIMENOrdering Facility: [facility] Address: [address] [place] [address] Performed By: #### 5 7021-8 ####[facility] LABCLIA [id number] [place] [address] [place] MCHC (RBC) [Mass/Vol] 33.2 g/dL Normal 30.5-36.0 [facility] Comment on above: Order Comment: Speci men Type: BLOOD SPECIMENOrdering Facility: [facility] Address: [address] [place] [address] Performed By: #### 5 7021-8 ####[facility] LABCLIA [id number] [place] [address] [place] MCV (RBC) [Entitic vol] 89.3 fL Normal 80.0-100.0 [facility] Comment on above: Order Comment: Speci men Type: BLOOD SPECIMENOrdering Facility: [facility] Address: [address] [place] [address] Performed By: #### 5 7021-8 ####[facility] [id number] [place] [address] [place] Monocytes (Bld) [#/Vol] 0.70 10*3/uL Normal <0.87 [facility] Comment on above: Order Comment: Speci men Type: BLOOD SPECIMENOrdering Facility: [facility] Address: [address] [place] [address] Performed By: #### 5 7021-8 ####[facility] LABCLIA [id number] [address] [place] Monocytes/100 WBC (Bld) 7.0 % Normal [facility] Comment on above: Order Comment: Speci men Type: BLOOD SPECIMENOrdering Facility: [facility] Address: [address] [place] [address] Performed By: #### 5 7021-8 ####[facility] LABCLIA [id number] [place] [address] [place] Neutrophils (Bld) [#/Vol] 6.02 10*3/uL Normal 1.45-7.50 [facility] Comment on above: Order Comment: Speci men Type: BLOOD SPECIMENOrdering Facility: [facility] Address: [address] [place] [address] Performed By: #### 5 7021-8 ####[facility] LABCLIA [id number] [place] [address] [place] Neutrophils/100 WBC (Bld) 60.3 % Normal [facility] Comment on above: Order Comment: Speci men Type: BLOOD SPECIMENOrdering Facility: [facility] Address: [address] [place] [address] Performed By: #### 5 7021-8 ####[facility] LABCLIA [id number] [place] [address] [place] Nucleated RBC (Bld) [#/Vol] 10*3/uL Normal <0.01 [facility] Comment on above: Order Comment: Speci men Type: BLOOD SPECIMENOrdering Facility: [facility] Address: [address] [place] [address] Performed By: #### 5 7021-8 ####[facility] LABCLIA [id number] [facility] [address], [facility] [place] Nucleated RBC/100 WBC (Bld) [Ratio] 0.0 /100 WBC Normal [facility] Comment on above: Order Comment: Speci men Type: BLOOD SPECIMENOrdering Facility: [facility] Address: [address] [place] [address] Performed By: #### 5 7021-8 ####[facility] LABCLIA [id number] [place] [id number] [place] Platelet mean volume (Bld) [Entitic vol] 10.0 fL Normal 9.0-12.7 [facility] Comment on above: Order Comment: Speci men Type: BLOOD SPECIMENOrdering Facility: [facility] Address: [address] [place] [address] Performed By: #### 5 7021-8 ####[facility] [id number] [place] [id number] [place] Platelets (Bld) [#/Vol] 375 10*3/uL Normal 150-400 [facility] Comment on above: Order Comment: Speci men Type: BLOOD SPECIMENOrdering Facility: [facility] Address: [address] [place] [address] Performed By: #### 5 7021-8 ####[facility] [id number] [place] [address] [place] RBC (Bld) [#/Vol] 4.41 10*6/uL Normal 3.90-5.20 [facility] Comment on above: Order Comment: Speci men Type: BLOOD SPECIMENOrdering Facility: [facility] Address: [address] [place] [address] Performed By: #### 5 7021-8 ####[facility] [id number] [place] [id number] [place] WBC (Bld) [#/Vol] 9.98 10*3/uL Normal 3.70-11.00 [facility] Comment on above: Order Comment: Speci men Type: BLOOD SPECIMENOrdering Facility: [facility] Address: [address] [place] [address] Performed By: #### 5 7021-8 ####[facility] [id number] [place] [id number] [place] Examination level ultrasound on 12-09-2024 Radiology Study observation (narrative) [facility] HBV surface Ag Ser Qlon 11-23 HBV surface Ag Ql (S) Negative Normal Negative [facility] Comment on above: Order Comment: Speci men Type: BLOOD SPECIMENOrdering Facility: [facility] Address: [address] [place] [address] Performed By: #### 3 1201-7, 34425-1, 5195-3 ####[facility] LABCLIA [id number] [place] [address] [place] HCV Ab Ser Qlon 12-09-2024 HCV Ab Ql (S) Negative Normal Negative [facility] Comment on above: Order Comment: Speci men Type: BLOOD SPECIMENOrdering Facility: [facility] Address: [address] [place] [address] Result Comment: The result suggests no evidence of infection with Hepatitis C virus. Should recent infection be suspected, repeat testing may be considered 4-6 weeks after this draw. Performed By: #### 1 6128-1 ####[facility] LABCLIA [id number] [place] [address] [place] HGB ELECTROPHORESIS FOR EVAL (LAB ORDER)on 12-09-2024 Hemoglobin A (Bld) [Mass fraction] 97.5 % Normal 96.2-98.0 [facility] Comment on above: Order Comment: Speci men Type: BLOOD SPECIMENOrdering Facility: [facility] Address: [address] [place] [address] Performed By: #### H BENNY [id number] ####[facility] LABCLIA [id number] [place] [address] [place] Hemoglobin A2 (Bld) [Mass fraction] 2.5 % Normal 2.0-3.1 [facility] Comment on above: Order Comment: Speci men Type: BLOOD SPECIMENOrdering Facility: [facility] Address: [address] [place] [address] Performed By: #### H BENNY, [id number] ####[facility] LABCLIA [id number] [place] [address] [place] Hemoglobin Unsp Elph (Bld) [Mass fraction] No abnormal hemoglobin identified. Normal No abnormal hemoglobin identified. [facility] Comment on above: Order Comment: Speci men Type: BLOOD SPECIMENOrdering Facility: [facility] Address: [address] [place] [address] Performed By: #### H BENNY, [id number] ####[facility] LABCLIA [id number] [place] [address] [place] HGB EVALUATION CASCADE INTER Crow 12-09-2024 Hemoglobin pattern (Bld) [Interp] Reviewed by Ankur Sterling MD Normal [facility] Comment on above: Order Comment: Speci men Type: BLOOD SPECIMENOrdering Facility: [facility] Address: [address] [place] [address] Performed By: #### H BENNY [id number] ####[facility] [id number] [place] [address] [place] INTERPRETATION (HGB EVAL) Normal [facility] Comment on above: Order Comment: Speci men Type: BLOOD SPECIMENOrdering Facility: [facility] Address: [address] [place] [address] Result Comment: Hemo globins were analyzed by capillary electrophoresis and CBC red cell parameters were reviewed. No abnormal hemoglobin is identified. There is a normal hemoglobin capillary electrophoresis pattern. Performed By: #### H BENNY, [id number] ####[facility] LABCLIA [id number] [place] [address] [place] HIV 1+2 Ab IA Qlon 5 HIV 1 and 2 Ab IA.rapid Nom (S/P/Bld) Normal [facility] Comment on above: Order Comment: Speci men Type: BLOOD SPECIMENOrdering Facility: [facility] Address: [address] [place] [address] Result Comment: Test not indicated. Performed By: #### 3 1201-7, 47384-2, 5195-3 ####[facility] [id number] [place] [id number] [place] HIV 1+2 Ab+HIV1 p24 Ag IA Ql Non-Reactive Normal Nonreactive [facility] Comment on above: Order Comment: Speci men Type: BLOOD SPECIMENOrdering Facility: [facility] Address: [address] [place] [address] Performed By: #### 3 1201-7, 33140-3, 5195-3 ####[facility] [id number] [place] [address] [place] HIV immunoassay testing algorithm interpretation (S/P/Bld) [Interp] Normal [facility] Comment on above: Order Comment: Speci men Type: BLOOD SPECIMENOrdering Facility: [facility] Address: [address] [place] [address] Result Comment: No e vidence of HIV-1 or HIV-2 infection. Should recent infection be suspected, repeat testing may be considered 2-3 weeks after this draw. [place] Rev. Code 3701.243(E): This information has been disclosed to you from confidential records protected from disclosure by state law. You shall make no further disclosure of this information without the specific, written, and informed release of the individual to whom it pertains or as otherwise permitted by state law. A general authorization for the release of medical or other information is not sufficient for the purpose of the release of HIV test results or diagnoses. Performed By: #### 3 1201-7, 02796-7, 5195-3 ####[facility] [id number] [place] [id number] [place] HbA1c (Bld)on 12-09-2024 Average glucose Estimated from glycated hemoglobin (Bld) [Mass/Vol] 103 mg/dL Normal [facility] Comment on above: Order Comment: Speci men Type: BLOOD SPECIMENOrdering Facility: [facility] Address: [address] [place] [address] Result Comment: eAG: (Estimated average glucose) is a calculated value from HgbA1c and is manufacturing sales representative of the average blood glucose level in the last 2-3 month period. Performed By: #### 5 5454-3 ####[facility] LABCLIA [id number] [place] [address] [place] HbA1c (Bld) [Mass fraction] 5.2 % Normal 4.3-5.6 [facility] Comment on above: Order Comment: Speci men Type: BLOOD SPECIMENOrdering Facility: [facility] Address: [address] [place] [address] Result Comment: [place] Diabetes Association guidelines indicate that patients with HgbA1c in the range 5.7-6.4% are at increased risk for development of diabetes, and intervention by lifestyle modification may be beneficial. HgbA1c greater or equal to 6.5% is considered diagnostic of diabetes. Performed By: #### 5 5454-3 ####[facility] [id number] [place] [address] [place] [id number] PLUSon 12-09-2024 Cell-free DNA./Cell-free DNA.total Dosage of chromosome-specific cfDNA (cfDNA) [Molar fraction] 10% Normal [facility] Comment on above: Order Comment: Daron miramontes Type: BLOOD SPECIMENOrdering Facility: [facility] Address: [address] [place] [address] Performed By: #### M AT21 ####[facility] LABCLIA [id number] [place] [address] Chr 13+18+21+X+Y aneuploidy Dosage of chromosome-specific cfDNA Ql (cfDNA) Negative Normal [facility] Comment on above: Order Comment: Daron miramontes Type: BLOOD SPECIMENOrdering Facility: [facility] Address: [address] [place] [address] Performed By: #### M AT21 ####[facility] LABCLIA [id number] [place] [address] Chr 21 trisomy Dosage of chromosome-specific cfDNA Ql (cfDNA) Negative Normal [facility] Comment on above: Order Comment: Speci men Type: BLOOD SPECIMENOrdering Facility: [facility] Address: [address] [place] [address] Performed By: #### M AT21 ####[facility] LABCLIA [id number] [place] [address] Chr X and Y aneuploidy risk Sequencing Ql (cfDNA) [Interp] Not detected Normal [facility] Comment on above: Order Comment: Speci men Type: BLOOD SPECIMENOrdering Facility: [facility] Address: [address] [place] [address] Result Comment: Not Detected Not Detected Performed By: #### M AT21 ####[facility] LABCLIA [id number] [place] [address] Citation Bryan (Reference lab test) Comment Normal [facility] Comment on above: Order Comment: Speci men Type: BLOOD SPECIMENOrdering Facility: [facility] Address: [address] [place] [address] Result Comment: 1. P twin RAMOS, et al. Mary Jo Med. 2012;14(3):296-305. 2. Florence YUEN, et al. Prenat Diag. 2013;33(6):591-597. 3. Pablito Whitfield, et al. Clin Chem. 2015 Apr;61(4):608-616. 4. Ana RAMOS, et al. Mary Jo Med. 2011;13(11):913-920. 5. ACOG/SMFM Practice Bulletin No. 226, Mar 2020. Performed By: #### M AT21 ####[facility] LABCLIA [id number] [place] [address] Gestational age Estimated from conception date Samano Normal [facility] Comment on above: Order Comment: Speci men Type: BLOOD SPECIMENOrdering Facility: [facility] Address: [address] [place] [address] Performed By: #### M AT21 ####[facility] LABCLIA [id number] [place] [address] GESTATIONALAGE AGE > OR = 9W Yes Normal [facility] Comment on above: Order Comment: Daron miramontes Type: BLOOD SPECIMENOrdering Facility: [facility] Address: [address] [place] [address] Performed By: #### M AT21 ####[facility] LABCLIA [id number] [place] [address] Laboratory comment Bryan (Report) Comment Normal [facility] Comment on above: Order Comment: Daron miramontes Type: BLOOD SPECIMENOrdering Facility: [facility] Address: [address] [place] [address] Result Comment: The MaterniT(R) 21 PLUS laboratory-developed test (LDT) analyzes circulating cell-free DNA from a maternal blood sample. This test is used for screening purposes and not diagnostic. Clinical correlation is recommended. Validation data on twin pregnancies is limited and the ability of this test to detect aneuploidy in higher multiple gestations has not yet been validated. Performed By: #### M AT21 ####[facility] [id number] [place] [id number] director of cardiology service line name Nom (Provider) Comment Normal [facility] Comment on above: Order Comment: Daron miramontes Type: BLOOD SPECIMENOrdering Facility: [facility] Address: [address] [place] [address] Result Comment: This specimen showed an expected representation of chromosome 21, 18 and 13 material. Clinical correlation is suggested. Comment Merritt Aviles MD, PhD, Director, [employer] Performed By: #### M AT21 ####[employer] LABTotal-traxIA [id number] [place] [id number] LIMITATIONS OF THE TEST Comment Normal [facility] Comment on above: Order Comment: Daron miramontes Type: BLOOD SPECIMENOrdering Facility: [facility] Address: [address] [place] [address] Result Comment: Mckenzie rojas the results of these tests are highly reliable, discordant results, including inaccurate sex prediction, may occur due to placental, maternal, or mosaicism or neoplasm; vanishing twin; prior maternal organ transplant; or other causes. These tests are screening tests and not diagnostic; they do not replace the accuracy and precision of diagnosis with CVS or amniocentesis. A patient with a positive test result should be referred for genetic counseling and offered invasive diagnosis for confirmation of test results.[5] The results of this testing, including the benefits and limitations, should be discussed with a qualified healthcare provider. management decisions, including termination of the , should not be based on the results of these tests alone. The healthcare provider is responsible for the use of this information in the management of their patient. Sex chromosomal aneuploidies are not reportable for known multiple gestations. A negative result does not ensure an unaffected nor does it exclude the possibility of other chromosomal abnormalities or defects which are not a part of these tests. An uninformative result may be reported, the causes of which may include, but are not limited to, insufficient sequencing coverage, noise or artifacts in the region, amplification or sequencing bias, or insufficient fraction. These tests are not intended to identify pregnancies at risk for neural tube defects or ventral wall defects. Testing for whole chromosome abnormalities (including sex chromosomes) and for subchromosomal abnormalities could lead to the potential discovery of both and maternal genomic abnormalities that could have major, minor, or no, clinical significance. Evaluating the significance of a positive or a non-reportable result may involve both invasive testing and additional studies on the mother. Such investigations may lead to a diagnosis of maternal chromosomal or subchromosomal abnormalities, which on occasion may be associated with benign or malignant maternal neoplasms. These tests may not accurately identify triploidy, balanced rearrangements, or the precise location of subchromosomal duplications or deletions; these may be detected by diagnosis with CVS or amniocentesis. The ability to report results may be impacted by maternal BMI, maternal weight, maternal systemic lupus erythematosus (SLE) and/or by certain pharmaceutical agents such as low molecular weight heparin (for example: Lovenox(R), Xaparin(R), Clexane(R) and Fragmin(R)). Performed By: #### M AT21 ####[employer] LABCLIA [id number] [place] [address] Monosomy X risk Dosage of chromosome-specific cfDNA Ql (Plasma cell-free+WBC DNA) [Interp] Not detected Normal [facility] Comment on above: Order Comment: Speci men Type: BLOOD SPECIMENOrdering Facility: [facility] Address: [address] [place] [address] Performed By: #### M AT21 ####[employer] LABTotal-traxIA [id number] [place] [address] NEGATIVE PREDICTIVE VALUE Note Normal [facility] Comment on above: Order Comment: Speci men Type: BLOOD SPECIMENOrdering Facility: [facility] Address: [address] [place] [address] Result Comment: The Negative Predictive Value (NPV) for trisomy 21, 18, and 13 is greater than 99%. The NPV for SCA and ESS cannot be calculated as SCA and ESS are only reported when an abnormality is detected. Performed By: #### M AT21 ####[employer] LABTotal-traxIA [id number] [place] [address] PERFORMANCE CHARACTERISTICS Note Normal [facility] Comment on above: Order Comment: Daron miramontes Type: BLOOD SPECIMENOrdering Facility: [facility] Address: [address] [place] [address] Result Comment: ! Sex ! Accuracy: 99.4% ! ! ! ! Region (associated syndrome) ! Est. Sens# ! Est. Spec ! ! ! ! Trisomy 21 (Down Syndrome) ! 99.1% ! 99.9% ! ! ! ! Trisomy 18 (Melendrez Syndrome) ! >99.9% ! 99.6% ! ! ! ! Trisomy 13 (Patau Syndrome) ! 91.7% ! 99.7% ! ! ! ! Sex Chromosome Aneuploidies## ! 96.2% ! 99.7% ! ! ! * As reported in ISCA database nstd37 [https://www.ncbi.nlm.nih.gov/dbvar/studies/nstd37/ ] # Estimated Sensitivity. Sensitivity estimated across the observed size distribution of each syndrome [per ISCA database nstd37] and across the range of fractions observed in routine clinical NIPT. Actual sensitivity can also be influenced by other factors such as the size of the event, total sequence counts, amplification bias, or sequence bias. ## Samano gestation only. Performed By: #### M AT21 ####[employer] LABCLIA [id number] [place] [address] POSITIVE PREDICTIVE VALUE N/A Normal [facility] Comment on above: Order Comment: Speci men Type: BLOOD SPECIMENOrdering Facility: [facility] Address: [address] [place] [address] Performed By: #### M AT21 ####[employer] LABCLIA [id number] [place] [address] Reference Lab Test Method Comment Normal [facility] Comment on above: Order Comment: Speci men Type: BLOOD SPECIMENOrdering Facility: [facility] Address: [address] [place] [address] Result Comment: See Notes Circulating cell-free DNA was purified from the plasma component of maternal blood. The extracted DNA was then converted into a genomic DNA library for aneuploidy analysis of chromosomes 21, 18, and 13 via next generation sequencing.[1] Optional findings based on the test order include sex chromosome aneuploidy (SCA)[2], and enhanced sequencing series (ESS)[3], which will only be reported on as an additional finding when an abnormality is detected. SCA testing includes information on X and Y representation, while ESS testing includes deletions in selected regions (22q, 15q, 11q, 8q, 5p, 4p, 1p) and trisomy of chromosomes 16 and 22. Performed By: #### M AT21 ####[employer] [id number] [place] [address] Service comment (Unsp spec) [Interp] Comment Normal [facility] Comment on above: Order Comment: Speci fe Type: BLOOD SPECIMENOrdering Facility: [facility] Address: [address] [place] [address] Result Comment: See Notes [employer] is a subsidiary of [facility], using the brand [employer]. This test was developed and its performance characteristics determined by [employer]. It has not been cleared or approved by the Food and Drug Administration. This laboratory is certified under the Clinical Laboratory Improvement Amendments (CLIA) as qualified to perform high complexity clinical laboratory testing and accredited by the [employer] (CAP). If there is future clinical need for adding MaterniT GENOME testing, this specimen will be available until term. [facility] samples will not be retained beyond [address] [facility] patients will have to send a new sample for re-sequencing ([facility] Test Code: [id number]). Performed By: #### M AT21 ####[employer] LABCLIA [id number] [place] [address] Sex Dosage of chromosome-specific cfDNA Nom (cfDNA) Comment Normal [facility] Comment on above: Order Comment: Speci men Type: BLOOD SPECIMENOrdering Facility: [facility] Address: [address] [place] [address] Result Comment: Cons istent with Male Performed By: #### M AT21 ####[employer] LABCLIA [id number] [place] [address] Test performance information Bryan (Unsp spec) Comment Normal [facility] Comment on above: Order Comment: Speci men Type: BLOOD SPECIMENOrdering Facility: [facility] Address: [address] [place] [address] Result Comment: The performance characteristics of the MaterniT(R) 21 PLUS laboratory-developed test (LDT) have been determined in a clinical validation study with women at increased risk for chromosomal aneuploidy.[1-4] Performed By: #### M AT21 ####[employer] LABCLIA [id number] [place] [address] Trisomy 13 risk Dosage of chromosome-specific cfDNA Ql (cfDNA) [Interp] Negative Normal [facility] Comment on above: Order Comment: Speci men Type: BLOOD SPECIMENOrdering Facility: [facility] Address: [address] [place] [address] Performed By: #### M AT21 ####[employer] LABCLIA [id number] [place] [address] Trisomy 18 risk Dosage of chromosome-specific cfDNA Ql (Plasma cell-free+WBC DNA) [Interp] Negative Normal [facility] Comment on above: Order Comment: Speci men Type: BLOOD SPECIMENOrdering Facility: [facility] Address: [address] [place] [address] Performed By: #### M AT21 ####[employer] LABCLIA [id number] [place] [address] RBC PARAMETERS FOR HB IDon 0 12-09-2024 Erythrocyte distribution width (RBC) [Ratio] 13.1 % Normal 11.5-15.0 [facility] Comment on above: Order Comment: Speci men Type: BLOOD SPECIMENOrdering Facility: [facility] Address: [address] [place] [address] Performed By: #### L [id number] ####[facility] LABIA [id number] [place] [address] [place] Hemoglobin (Bld) [Mass/Vol] 12.7 g/dL Normal 11.5-15.5 [facility] Comment on above: Order Comment: Speci men Type: BLOOD SPECIMENOrdering Facility: [facility] Address: [address] [place] [address] Performed By: #### L [id number] ####[facility] LABIA [id number] [place] [address] [place] MCH (RBC) [Entitic mass] 29.3 pg Normal 26.0-34.0 [facility] Comment on above: Order Comment: Speci men Type: BLOOD SPECIMENOrdering Facility: [facility] Address: [address] [place] [address] Performed By: #### L [id number] ####[facility] LABIA [id number] [place] [address] [place] MCHC (RBC) [Mass/Vol] 32.2 g/dL Normal 30.5-36.0 [facility] Comment on above: Order Comment: Speci men Type: BLOOD SPECIMENOrdering Facility: [facility] Address: [address] [place] [address] Performed By: #### L [id number] ####[facility] LABIA [id number] [place] [address] [place] MCV (RBC) [Entitic vol] 90.8 fL Normal 80.0-100.0 [facility] Comment on above: Order Comment: Speci men Type: BLOOD SPECIMENOrdering Facility: [facility] Address: [address] [place] [address] Performed By: #### L [id number] ####[facility] LABIA [id number] [place] [address] [place] RBC (Bld) [#/Vol] 4.34 10*6/uL Normal 3.90-5.20 [facility] Comment on above: Order Comment: Daron miramontes Type: BLOOD SPECIMENOrdering Facility: [facility] Address: [address] [place] [address] Performed By: #### L [id number] ####[facility] LABIA [id number] [address] [place] RUBELLA IGG ANTIBODYon 12-09 RUBELLA IGG AB, QUAL Negative Abnormal Positive [facility] Comment on above: Order Comment: Daron miramontes Type: BLOOD SPECIMENOrdering Facility: [facility] Address: [address] [place] [address] Result Comment: The result suggests no history of Rubella vaccination or exposure to Rubella virus, however, some individuals with past history of Rubella vaccination may test negative using this test as immunity to Rubella virus wanes over time after vaccination. Please correlate with vaccination history if applicable. Performed By: #### R UBIGG ####[facility] LABIA [id number] [address] [place] Reagin and Treponema pallidu m IgG and IgM [Interp]on 12-09-2024 T. pallidum IgG+IgM IA Ql (S) Non-Reactive Normal Nonreactive [facility] Comment on above: Order Comment: Daron miramontes Type: BLOOD SPECIMENOrdering Facility: [facility] Address: [address] [place] [address] Performed By: #### 3 1201-7, 98499-3, 5195-3 ####[facility] LABIA [id number] [place] [address] [place] Reagin+T pallidum IgG+IgM Se rPl-Impon 12-09-2024 Reagin and Treponema pallidum IgG and IgM [Interp] Cannot exclude recent Treponemal infection if specimen collected within 7-10 days after appearance of suspect lesions or 2-3 weeks after an exposure. Clinical correlation is required. Normal [facility] Comment on above: Order Comment: Speci men Type: BLOOD SPECIMENOrdering Facility: [facility] Address: [address] [place] [address] Performed By: #### 3 1201-7, 35241-1, 5195-3 ####[facility] LABCLIA [id number] [address] TYPE + SCREEN PRENATALon ABO O Normal [facility] Comment on above: Order Comment: Speci men Type: BLOOD SPECIMEN Ordering Facility: [facility] Address: [address] [place] [address] Performed By: #### T SPN #### [facility] CLIA [id number] [address] [place] [address] [place] Rh Nom (Bld) Positive Normal [facility] Comment on above: Order Comment: Speci men Type: BLOOD SPECIMEN Ordering Facility: [facility] Address: [address] [place] [address] Performed By: #### T SPN #### [facility] CLIA [id number] [address] [place] [address] TYPE AND SCREEN EXPIRATION 12/12/2024 23:59 Normal [facility] Comment on above: Order Comment: Tamarai men Type: BLOOD SPECIMEN Ordering Facility: [facility] Address: [address] [place] [address] Performed By: #### T SPN #### [facility] CLIA [id number] [address] [place] [address] [place] CNPNon 11-25-2024 CNPN Telephone (OBGYWM) JES FRANKS ([id number]) 1995 F Date Time Provider Department 11/25/24 SUSY MADDOX During your visit today, we recorded the following information about you: Jennifer Rodriguez RN 11/25/2024 3:32 PM Signed 10w1d Calling c/o spotting that started last evening 11/19. More dark red/brown in color, has never been bright red. Only minimal amount on underwear and notices it with wiping more. Intermittent mild cramping with it, but still very minimal as well. States she has has spotting all throughout so far, but it has never last this long. No recent intercourse prior to it starting. No available appts today or tomorrow. Her next appt is scheduled for 12/09. Please advise. FARIDA Aguilar Jessica, APRN.CNM 11/25/2024 4:13 PM Signed I would recommend appointment tomorrow for environmental geologist provider 11:30 or 3:30 if possible. Thanks, Susy Maddox APRN.Viry Balderas RN 11/25/2024 4:36 PM Signed Left message for patient to call office. Viry Hancock RN Allergies As of Date: 11/25/2024 Noted Allergy Reaction AMOXICILLIN 11/26/2018 8 - GI Upset 11 - Vomiting Date Reviewed: 11/03/2024 Reviewed by: Mary Kate Peralta APRN.CAR REPOSSESSOR - Fully Assessed Reason for Visit: OB Spotting [Other] Prescriptions as of 11/27/2024 - aspirin, enteric coated (ECOTRIN LOW STRENGTH) 81 mg EC tablet Take 1 tablet by mouth once daily. - triamcinolone acetonide (NASACORT NASAL) Use in the nose. - Multivitamin capsule Take 1 capsule by mouth once daily. - Lactobac no.41/Bifidobact no.7 (PROBIOTIC-10 ORAL) Take 1 tablet by mouth once daily. Problem List As Of Date 11/25/2024 Noted Resolved Supervision of high risk due to socia*11/03/2024 BMI 39.0-39.9,adult [Z68.39] 11/03/2024 Encounter Status:Closed by RUBY ANDRE on 11/27/24 [facility] Mira 11-20-2024 ASPEN Telephone (OBGYWM) JES FRANKS ([id number]) 1995 F Date Time Provider Department 11/20/24 MARY KATE PERALTA OBGYWM During your visit today, we recorded the following information about you: Jennifer Rodriguez RN 11/20/2024 12:16 PM Signed Mary Kate Peralta APRN.CAR REPOSSESSOR 11/20/24 7:02 AM Note Pap ASCUS and HPV+, she will need a colp. Currently . Order filed. Mary Kate Peralta APRN.Jennifer Ocampo RN 11/20/2024 12:16 PM Signed Left message for patient to call office. FARIDA Aguilar Jennifer, RN 11/20/2024 12:53 PM Signed Patient notified. Lampe scheduled. Daylin Boucher RN Allergies As of Date: 11/20/2024 Noted Allergy Reaction AMOXICILLIN 11/26/2018 8 - GI Upset 11 - Vomiting Date Reviewed: 11/03/2024 Reviewed by: Mary Kate Peralta APRN.CAR REPOSSESSOR - Fully Assessed Reason for Visit: Abnormal Pap [273] Prescriptions as of 11/20/2024 - aspirin, enteric coated (ECOTRIN LOW STRENGTH) 81 mg EC tablet Take 1 tablet by mouth once daily. - triamcinolone acetonide (NASACORT NASAL) Use in the nose. - Multivitamin capsule Take 1 capsule by mouth once daily. - Lactobac no.41/Bifidobact no.7 (PROBIOTIC-10 ORAL) Take 1 tablet by mouth once daily. Problem List As Of Date 11/20/2024 Noted Resolved Supervision of high risk due to socia*11/03/2024 BMI 39.0-39.9,adult [Z68.39] 11/03/2024 Encounter Status:Closed by DAYLIN BOUCHER on 11/20/24 Normal [facility] Bacteria Ur Culton Bacteria identified Cx Nom (U) ORGANISM ID: 1 <10,000 CFU/ml Mixed microbiota No further workup. Mixed microbiota can be due to???urine???contami nation with skin bacteria at time of collection or presence of a long-term urinary catheter. If a new culture is needed, please consider re-education of the patient on proper midstream collection technique or straight catheterization for???urine???collec tion. Normal [facility] Comment on above: Performed By: #### 6 30-4 ####[facility] LABCLIA [id number] [place] [address] [place] C. trachomatis+N. gonorrhoea e DNA LISS+probe Ql (Unsp spec)on 11-03-2024 C. trachomatis rRNA LISS+probe Ql (Unsp spec) Not detected Normal Not detected [facility] Comment on above: Order Comment: Speci men Type: SWABOrdering Facility: [facility] Address: [address] [place] [address] Performed By: #### 3 6902-5, TRVAMP ####[facility] LABIA [id number] [place] [address] [place] N. gonorrhoeae rRNA LISS+probe Ql (Unsp spec) Not detected Normal Not detected [facility] Comment on above: Order Comment: Speci men Type: SWABOrdering Facility: [facility] Address: [address] [place] [address] Performed By: #### 3 6902-5, TRVAMP ####[facility] LABIA [id number] [place] [address] [place] HIGH RISK HUMAN PAPILLOMA ROBIN (HPV), PCR FOR DETECTION AND GENOTYPINGon 11-03-2024 HPV 16 Ag Ql (Unsp spec) Not detected Normal Not detected [facility] Comment on above: Order Comment: Speci men Type: FLUID SPECIMENOrdering Facility: [facility] Address: [address] [place] [address] Performed By: #### H PVHRT ####[facility] LABCLIA [id number] [place] [address] [place] HPV 18 Ag Ql (Unsp spec) Not detected Normal Not detected [facility] Comment on above: Order Comment: Speci men Type: FLUID SPECIMENOrdering Facility: [facility] Address: [address] [place] [address] Performed By: #### H PVHRT ####[facility] LABCLIA [id number] [place] [address] [place] HPV 31+33+35+39+45+51+52+ 56+58+59+66+68 DNA LISS+probe Ql (Cvx) Detected Abnormal Not detected [facility] Comment on above: Order Comment: Speci men Type: FLUID SPECIMENOrdering Facility: [facility] Address: [address] [place] [address] Result Comment: High Risk HPV Other Type includes HPV types 31, 33, 35, 39, 45, 51, 52, 56, 58, 59, 66 and 68. Performed By: #### H PVHRT ####[facility] LABCLIA [id number] [place] [address] [place] PAP TESTon 11-03-2024 ADEQUACY Normal [facility] Comment on above: Order Comment: Speci men Type: FLUID SPECIMENOrdering Facility: [facility] Address: [address] [place] [address] Result Comment: Sati sfactory for interpretation. Transformation zone present Performed By: #### L [id number] ####[facility] LABCLIA [id number] [place] [id number] [place] CASE REPORT Normal [facility] Comment on above: Order Comment: Speci men Type: FLUID SPECIMENOrdering Facility: [facility] Address: [address] [place] [address] Result Comment: Gyne cologic Cytology Report Case: [id number] Authorizing Provider: Mary Kate Peralta APRN.CAR REPOSSESSOR Collected: 11/03/2024 03:32 PM Ordering Location: OB/Gynecology Received: 11/04/2024 07:17 AM First Screen: Eva Viveros, CT, ASCP Pathologist: Deshawn Maxwell MD Specimen: Pap Test, ThinPrep, Cervix Performed By: #### L [id number] ####[facility] LABCLIA [id number] [place] [address] [place] CLINICAL HISTORY, CYTOLOGY, TOURIST ESCORT Routine Exam Normal [facility] Comment on above: Order Comment: Speci men Type: FLUID SPECIMENOrdering Facility: [facility] Address: [address] [place] [address] Performed By: #### L [id number] ####[facility] LABCLIA [id number] [place] [address] [place] FINAL PERFORMING LAB Normal [facility] Comment on above: Order Comment: Speci men Type: FLUID SPECIMENOrdering Facility: [facility] Address: [address] [place] [address] Result Comment: Tech nical component, sifter and miller screening performed at: [facility], [address] [place], [place] [id number] CLIA: [id number] Diagnostic interpretation performed at: [facility], [address] [place] [address] [place] [address] CLIA# [id number] Boat Washer: Cole Daugherty MD Performed By: #### L [id number] ####[facility] LABCLIA [id number] [address] [address] [place] INTERPRETATION, CYTOLOGY, TOURIST ESCORT Abnormal [facility] Comment on above: Order Comment: Speci men Type: FLUID SPECIMENOrdering Facility: [facility] Address: [address] [place] [address] Result Comment: Atyp ical squamous cells of undetermined significance (ASC-US). at 1553 EDT Performed By: #### L [id number] ####[facility] LABCLIA [id number] [address] [address] [place] LMP 09/15/2024 Normal [facility] Comment on above: Order Comment: Speci men Type: FLUID SPECIMENOrdering Facility: [facility] Address: [address] [place] [address] Performed By: #### L [id number] ####[facility] LABCLIA [id number] [facility] [address], [facility] [place] PAP DISCLAIMER COMMENT The Pap Smear is a screening test for cervical cancer. False negative results occur with all screening tests, emphasizing the need for rescreening at recommended intervals, and clinical correlation. Normal [facility] Comment on above: Order Comment: Speci men Type: FLUID SPECIMENOrdering Facility: [facility] Address: [address] [place] [address] Performed By: #### L [id number] ####[facility] LABCLIA [id number] [address] [place] [address] [place] PAP GENERAL CATEGORIZATION Epithelial Cell Abnormality Normal [facility] Comment on above: Order Comment: Speci men Type: FLUID SPECIMENOrdering Facility: [facility] Address: [address] [place] [address] Performed By: #### L [id number] ####[facility] LABCLIA [id number] [address] [address] [place] PAP BUTCHER COMMENT This specimen has been analyzed by the FDA-approved Tangled System, which uses digital imaging and an enhanced artificial intelligence image analysis algorithm to identify hernández of interest on the microscopic slide, to assist the real estate coordinator and pathologist in evaluating cells on ThinPrep Pap tests. Following analysis, hernández of interest on the microscopic slide selected by the algorithm are reviewed by a real estate coordinator. If a sample requires hierarchical review, the pathologist will review the same hernández of interest selected by the algorithm prior to final interpretation. Normal [facility] Comment on above: Order Comment: Speci men Type: FLUID SPECIMENOrdering Facility: [facility] Address: [address] [place] [address] Performed By: #### L [id number] ####[facility] LABCLIA [id number] [address] OF [place] POC PRINTING ENGINEER ULTRASOUNDon 11-04-19 Indication Viability. Confirmation of intrauterine . Confirmation of cardiac activity. Estimation of gestational age Impression cardiac activity is visualized, CRL is appropriate for clinical dates, corresponding to ROGER 06/22/25 Recommendations Follow up for 1st Trimester Anatomy with Nuchal Translucency as clinically indicated if desired. Method Transvaginal ultrasound examination. View: Adequate visualization Samano . Number of embryos: 1 Dating LMP on: 09/15/2024 GA by LMP 7 w + 0 d ROGER by LMP: 06/22/2025 Ultrasound examination on: 11/03/2024 GA by U/S based upon: CRL GA by U/S 6 w + 5 d ROGER by U/S: 06/24/2025 Assigned: based on the LMP, selected on 11/03/2024 Assigned GA 7 w + 0 d Assigned ROGER: 06/22/2025 Biometry Standard FHR 164 bpm CRL 8.1 mm 6w 5d 31% Hadlock Assessment Gestational sac: visualized Location: intrauterine Yolk sac: visualized Embryo: visualized CRL 8.1 mm 6w 5d 31% Hadlock Cardiac activity: present FHR 164 bpm Maternal Structures BMI 39 General Evaluation Cardiac activity present. FHR 164 bpm Performed By: Mary Kate Peralta CNP Read By: Mary Kate Peralta CNP MATERNAL MEDICINE [facility] Radiology Study observation (narrative) [facility] TRICHOMONAS VAGINALIS Rahul 11-03-2024 T. vaginalis DNA LISS+probe Ql (Unsp spec) Not detected Normal Not detected [facility] Comment on above: Order Comment: Speci men Type: SWABOrdering Facility: [facility] Address: [address] [place] [address] Performed By: #### 3 6902-5, SUSHMA ####[facility] LABCLIA [id number] [place] [address] [place] AMPICILLIN:SUSC:PT:ISOLATE:O RDQN:MICon 06-13-2024 Ampicillin ALEXEI [Susc] 50,000 - 100,000 cfu/ml Escherichia coli [facility] Ampicillin ALEXEI [Susc]on 05-26 Escherichia coli Escherichia coli [facility] No Panel Informationon 02-07 Culture Urine 10,000 - 50,000 cfu/ml Multiple bacterial morphotypes present. Probable Contamination. Suggest recollection if clinically indicated. [facility] .Auto Diffon 11-15-2021 Basophil, Absolute 0.1 10 3/mcL Normal 0.0-0.2 [facility] ([place]) Comment on above: Performed By: #### H CGQ, FT4, TSH, FERR, CMP, GFR #### [address] [address] Basophils/100 WBC (Bld) 0.7 % Normal 0.0-2.5 [facility] ([place]) Comment on above: Performed By: #### H CGQ, FT4, TSH, FERR, CMP, GFR #### [address] [address] Eosinophil, Absolute 0.1 10 3/mcL Normal 0.0-0.4 [facility] ([place]) Comment on above: Performed By: #### H CGQ, FT4, TSH, FERR, CMP, GFR #### [address] [address] Eosinophils/100 WBC (Bld) 1.4 % Normal 0.0-7.0 [facility] ([place]) Comment on above: Performed By: #### H CGQ, FT4, TSH, FERR, CMP, GFR #### [address] [address] Lymphocyte, Absolute 3.1 10 3/mcL Normal 0.8-3.9 [facility] ([place]) Comment on above: Performed By: #### H CGQ, FT4, TSH, FERR, CMP, GFR #### [address] [address] Lymphocytes/100 WBC (Bld) 35.6 % Normal 10.0-50.0 [facility] ([place]) Comment on above: Performed By: #### H CGQ, FT4, TSH, FERR, CMP, GFR #### [address] [address] Monocyte, Absolute 0.6 10 3/mcL Normal 0.2-1.0 [facility] ([place]) Comment on above: Performed By: #### H CGQ, FT4, TSH, FERR, CMP, GFR #### [address] [address] Monocytes/100 WBC (Bld) 7.2 % Normal 1.7-13.0 [facility] ([place]) Comment on above: Performed By: #### H CGQ, FT4, TSH, FERR, CMP, GFR #### [address] [address] Neutrophils/100 WBC (Bld) 55.1 % Normal 37.0-80.0 [facility] ([place]) Comment on above: Performed By: #### H CGQ, FT4, TSH, FERR, CMP, GFR #### [address] [address] .GFRon 11-15-2021 GFR 97 ml/min/1.73sqm Normal [facility] ([place]) Comment on above: Result Comment: GFR Population mean for , Non- Americans Ages 20-29 = 116 mL/min/1.73 sq.m. Ages 30-39 = 107 mL/min/1.73 sq.m. Ages 40-49 = 99 mL/min/1.73 sq.m. Ages 50-59 = 93 mL/min/1.73 sq.m. Ages 60-69 = 85 mL/min/1.73 sq.m. Ages 70+ = 75 mL/min/1.73 sq.m. Chronic Kidney Disease: Less than 60 mL/min/1.73 square meters End Stage Renal Disease: Less than 15 mL/min/1.73 square meters Performed By: #### H CGQ, FT4, TSH, FERR, CMP, GFR ####[address] [place], [place] [address] GFR Non- 80 ml/min/1.73sqm Normal [facility] ([place]) Comment on above: Result Comment: GFR Population mean for , Non- Americans Ages 20-29 = 116 mL/min/1.73 sq.m. Ages 30-39 = 107 mL/min/1.73 sq.m. Ages 40-49 = 99 mL/min/1.73 sq.m. Ages 50-59 = 93 mL/min/1.73 sq.m. Ages 60-69 = 85 mL/min/1.73 sq.m. Ages 70+ = 75 mL/min/1.73 sq.m. Chronic Kidney Disease: Less than 60 mL/min/1.73 square meters End Stage Renal Disease: Less than 15 mL/min/1.73 square meters Performed By: #### H CGQ, FT4, TSH, FERR, CMP, GFR ####[address] [place], [place] [address] .MDWon 11-15-2021 Monocyte Distribution Width Not performed Normal 0.00-20.00 [facility] ([place]) Comment on above: Result Comment: MDW testing performed only on adult ER patients between the ages of 18-89 years. Performed By: #### H CGQ, FT4, TSH, FERR, CMP, GFR #### [place] [address] [place], [place] [address] .NEUABSon 11-15-2021 Neutrophil, Absolute 4.8 10 3/mcL Normal 2.9-6.2 [facility] ([place]) Comment on above: Performed By: #### H CGQ, FT4, TSH, FERR, CMP, GFR #### [address] [place] [address] CBCon 11-15-2021 Erythrocyte distribution width (RBC) [Ratio] 13.3 % Normal 11.5-14.5 [facility] ([place]) Comment on above: Performed By: #### H CGQ, FT4, TSH, FERR, CMP, GFR #### [place] [address] Hematocrit (Bld) [Volume fraction] 41.3 % Normal 37.0-47.0 [facility] ([place]) Comment on above: Performed By: #### H CGQ, FT4, TSH, FERR, CMP, GFR #### [place] [address] Hgb 13.7 G/dL Normal 12.0-16.0 [facility] ([place]) Comment on above: Performed By: #### H CGQ, FT4, TSH, FERR, CMP, GFR #### [place] [address] MCH (RBC) [Entitic mass] 29.3 pg Normal 27.0-31.2 [facility] ([place]) Comment on above: Performed By: #### H CGQ, FT4, TSH, FERR, CMP, GFR #### [place] [address] MCHC 33.3 G/dL Normal 33.0-37.0 [facility] ([place]) Comment on above: Performed By: #### H CGQ, FT4, TSH, FERR, CMP, GFR #### [place] [address] MCV (RBC) [Entitic vol] 88.0 fL Normal 80.0-94.0 [facility] ([place]) Comment on above: Performed By: #### H CGQ, FT4, TSH, FERR, CMP, GFR #### [place] [address] Platelet 372 10 3/mcL Normal 130-400 [facility] ([place]) Comment on above: Performed By: #### H CGQ, FT4, TSH, FERR, CMP, GFR #### [address] [address] Platelet mean volume (Bld) [Entitic vol] 8.1 fL Normal 7.4-10.4 [facility] ([place]) Comment on above: Performed By: #### H CGQ, FT4, TSH, FERR, CMP, GFR #### [address] [address] RBC 4.69 10 6/mcL Normal 4.20-5.40 [facility] ([place]) Comment on above: Performed By: #### H CGQ, FT4, TSH, FERR, CMP, GFR #### [address] [address] WBC 8.7 10 3/mcL Normal 4.6-10.8 [facility] ([place]) Comment on above: Performed By: #### H CGQ, FT4, TSH, FERR, CMP, GFR #### [address] [address] CMPon 11-15-2021 Albumin Level 3.5 G/dL Normal 3.5-5.0 [facility] ([place]) Comment on above: Performed By: #### H CGQ, FT4, TSH, FERR, CMP, GFR ####[address] [address] Albumin/Globulin [Mass ratio] 0.8 {ratio} Low 1.1-2.5 [facility] ([place]) Comment on above: Performed By: #### H CGQ, FT4, TSH, FERR, CMP, GFR ####[address] [address] ALP [Catalytic activity/Vol] 70 U/L Normal 40-135 [facility] ([place]) Comment on above: Performed By: #### H CGQ, FT4, TSH, FERR, CMP, GFR ####[address] [place], [place] [address] ALT [Catalytic activity/Vol] 35 U/L Normal 14-59 [facility] ([place]) Comment on above: Performed By: #### H CGQ, FT4, TSH, FERR, CMP, GFR ####[address] [place], [place] [address] AST [Catalytic activity/Vol] 27 U/L Normal 10-40 [facility] ([place]) Comment on above: Performed By: #### H CGQ, FT4, TSH, FERR, CMP, GFR ####[address] [place], [place] [address] Bili Total 0.2 mg/dL Normal 0.2-1.0 [facility] ([place]) Comment on above: Result Comment: Use of this assay is not recommended for patients undergoing treatment with eltrombopag due to the potential for falsely elevated results. Performed By: #### H CGQ, FT4, TSH, FERR, CMP, GFR ####[address] [place], [place] [address] BUN/Creatinine Ratio 10 ratio Normal 7-27 [facility] ([place]) Comment on above: Performed By: #### H CGQ, FT4, TSH, FERR, CMP, GFR ####[address] [place], [place] [address] Calcium [Mass/Vol] 9.1 mg/dL Normal 8.4-10.2 [facility] ([place]) Comment on above: Performed By: #### H CGQ, FT4, TSH, FERR, CMP, GFR ####[address] [place], [place] [address] Chloride [Moles/Vol] 101 mmol/L Normal 98-107 [facility] ([place]) Comment on above: Performed By: #### H CGQ, FT4, TSH, FERR, CMP, GFR ####[facility] [place], [place] [address] CO2 [Moles/Vol] 28 mmol/L Normal 22-29 [facility] ([place]) Comment on above: Performed By: #### H CGQ, FT4, TSH, FERR, CMP, GFR ####[address] [place], [place] [address] Creatinine [Mass/Vol] 0.86 mg/dL Normal 0.55-1.02 [facility]) Comment on above: Performed By: #### H CGQ, FT4, TSH, FERR, CMP, GFR ####[address] [place], [place] [address] Electrolyte Balance 9.0 mEq/L Normal 4.0-15.0 [facility] ([place]) Comment on above: Performed By: #### H CGQ, FT4, TSH, FERR, CMP, GFR ####[address] [place], [place] [address] Globulin 4.2 G/dL Normal [facility] ([place]) Comment on above: Performed By: #### H CGQ, FT4, TSH, FERR, CMP, GFR ####[address] [place], [place] [address] Glucose [Mass/Vol] 95 mg/dL Normal 70-105 [facility] ([place]) Comment on above: Performed By: #### H CGQ, FT4, TSH, FERR, CMP, GFR ####[address] [place], [place] [address] Potassium [Moles/Vol] 4.0 mmol/L Normal 3.5-5.1 [facility] ([place]) Comment on above: Performed By: #### H CGQ, FT4, TSH, FERR, CMP, GFR ####[address] [place], [place] [address] Sodium [Moles/Vol] 138 mmol/L Normal 136-145 [facility] ([place] Comment on above: Performed By: #### H CGQ, FT4, TSH, FERR, CMP, GFR ####[address] [place], [place] [address] Total Protein 7.7 G/dL Normal 6.4-8.2 [facility] ([place]) Comment on above: Performed By: #### H CGQ, FT4, TSH, FERR, CMP, GFR ####[address] [place], [place] [address] Urea nitrogen [Mass/Vol] 9 mg/dL Normal 7-18 [facility] ([place]) Comment on above: Performed By: #### H CGQ, FT4, TSH, FERR, CMP, GFR ####[facility] [place], [place] [address] Ly 11-15-2021 Ferritin [Mass/Vol] 107.0 ng/mL Normal 8.0-252.0 [facility] ([place]) Comment on above: Performed By: #### H CGQ, FT4, TSH, FERR, CMP, GFR #### [address] [place], [place] [address] FT4on 11-15-2021 Free T4 [Mass/Vol] 0.91 ng/dL Normal 0.76-1.46 [facility] ([place]) Comment on above: Performed By: #### H CGQ, FT4, TSH, FERR, CMP, GFR #### [address] [place], [place] [address] HCGQon 11-15-2021 hCG, quantitative <1.0 Normal [facility] ([place]) Comment on above: Result Comment: HCG Levels with Gestation age: 0.2- 1 week. . . . . . . . . . . . . . . 5 - 50 mIU/mL 1-2 weeks . . . . . . . . . . . . . . . 50 - 500 mIU/mL 2-3 weeks . . . . . . . . . . . . . . . 100 - 5,000 mIU/ml 3-4 weeks . . . . . . . . . . . . . . . 500 - 10,000 mIU/mL 4-5 weeks . . . . . . . . . . . . . . . 1,000 - 5,000 mIU/mL 5-6 weeks . . . . . . . . . . . . . . . 10,000 - 100,000 mIU/mL 6-8 weeks . . . . . . . . . . . . . . . 15,000 - 200,000 mIU/mL 2-3 months . . . . . . . . . . . . . . . 10,000 - 100,000 mIU/mL Performed By: #### H CGQ, FT4, TSH, FERR, CMP, GFR ####[address] [place], [place] [address] LABORATORYOrdered By: Lora Tejeda on 11-15-2021 Albumin BCP dye [Mass/Vol] 3.5 G/dL Invalid Interpretation Code 3.5 - 5.0 G/dL AO ADM SS Albumin/Globulin [Mass ratio] 0.8 {ratio} Invalid Interpretation Code 1.1 - 2.5 ratio AO ADM SS ALP [Catalytic activity/Vol] 70 U/L Invalid Interpretation Code 40 - 135 U/L AO ADM SS ALT With P-5'-P [Catalytic activity/Vol] 35 U/L Invalid Interpretation Code 14 - 59 U/L AO ADM SS AST With P-5'-P [Catalytic activity/Vol] 27 U/L Invalid Interpretation Code 10 - 40 U/L AO ADM SS Bilirubin [Mass/Vol] 0.2 mg/dL Invalid Interpretation Code 0.2 - 1.0 mg/dL AO ADM SS Calcium [Mass/Vol] 9.1 mg/dL Invalid Interpretation Code 8.4 - 10.2 mg/dL AO ADM SS Chloride [Moles/Vol] 101 mmol/L Invalid Interpretation Code 98 - 107 mmol/L AO ADM SS CO2 [Moles/Vol] 28 mmol/L Invalid Interpretation Code 22 - 29 mmol/L AO ADM SS Creatinine [Mass/Vol] 0.86 mg/dL Invalid Interpretation Code 0.55 - 1.02 mg/dL AO ADM SS Electrolyte Balance 9.0 mEq/L Invalid Interpretation Code 4.0 - 15.0 mEq/L AO ADM SS Ferritin [Mass/Vol] 107.0 ng/mL Invalid Interpretation Code 8.0 - 252.0 ng/mL AO ADM SS Free T4 [Mass/Vol] 0.91 ng/dL Invalid Interpretation Code 0.76 - 1.46 ng/dL AO ADM SS Globulin 4.2 G/dL Invalid Interpretation Code AO ADM SS Glucose [Mass/Vol] 95 mg/dL Invalid Interpretation Code 70 - 105 mg/dL AO ADM SS HCG Qn mIU/mL Invalid Interpretation Code AO ADM SS Potassium [Moles/Vol] 4.0 mmol/L Invalid Interpretation Code 3.5 - 5.1 mmol/L AO ADM SS Protein [Mass/Vol] 7.7 G/dL Invalid Interpretation Code 6.4 - 8.2 G/dL AO ADM SS Sodium [Moles/Vol] 138 mmol/L Invalid Interpretation Code 136 - 145 mmol/L AO ADM SS TSH Qn 0.99 m[IU]/L Invalid Interpretation Code 0.36 - 3.74 mcIU/mL AO ADM SS Urea nitrogen [Mass/Vol] 9 mg/dL Invalid Interpretation Code 7 - 18 mg/dL AO ADM SS Urea nitrogen/Creatinine [Mass ratio] 10 ratio Invalid Interpretation Code 7 - 27 ratio AO ADM SS LABORATORYOrdered By: Nina Velez on 11-15-2021 Basophil, Absolute 0.1 103/mcL Invalid Interpretation Code 0.0 - 0.2 10^3/mcL AO Workflow SS Basophils/100 WBC (Bld) 0.7 % Invalid Interpretation Code 0.0 - 2.5 % AO Workflow SS Eosinophil, Absolute 0.1 103/mcL Invalid Interpretation Code 0.0 - 0.4 10^3/mcL AO Workflow SS Eosinophils/100 WBC (Bld) 1.4 % Invalid Interpretation Code 0.0 - 7.0 % AO Workflow SS Erythrocyte distribution width (RBC) [Ratio] 13.3 % Invalid Interpretation Code 11.5 - 14.5 % AO Workflow SS Hematocrit (Bld) [Volume fraction] 41.3 % Invalid Interpretation Code 37.0 - 47.0 % AO Workflow SS Hgb 13.7 G/dL Invalid Interpretation Code 12.0 - 16.0 G/dL AO Workflow SS Lymphocyte, Absolute 3.1 103/mcL Invalid Interpretation Code 0.8 - 3.9 10^3/mcL AO Workflow SS Lymphocytes/100 WBC (Bld) 35.6 % Invalid Interpretation Code 10.0 - 50.0 % AO Workflow SS MCH (RBC) [Entitic mass] 29.3 pg Invalid Interpretation Code 27.0 - 31.2 pg AO Workflow SS MCHC 33.3 G/dL Invalid Interpretation Code 33.0 - 37.0 G/dL AO Workflow SS MCV (RBC) [Entitic vol] 88.0 fL Invalid Interpretation Code 80.0 - 94.0 fL AO Workflow SS Monocyte, Absolute 0.6 103/mcL Invalid Interpretation Code 0.2 - 1.0 10^3/mcL AO Workflow SS Monocytes/100 WBC (Bld) 7.2 % Invalid Interpretation Code 1.7 - 13.0 % AO Workflow SS Neutrophil, Absolute 4.8 103/mcL Invalid Interpretation Code 2.9 - 6.2 10^3/mcL AO Workflow SS Neutrophils/100 WBC (Bld) 55.1 % Invalid Interpretation Code 37.0 - 80.0 % AO Workflow SS Platelet 372 103/mcL Invalid Interpretation Code 130 - 400 10^3/mcL AO Workflow SS Platelet mean volume (Bld) [Entitic vol] 8.1 fL Invalid Interpretation Code 7.4 - 10.4 fL AO Workflow SS RBC 4.69 106/mcL Invalid Interpretation Code 4.20 - 5.40 10^6/mcL AO Workflow SS WBC 8.7 103/mcL Invalid Interpretation Code 4.6 - 10.8 10^3/mcL AO Workflow SS LABORATORYOrdered By: SYSTEM SYSTEM on 11-15-2021 GFR 97 ml/min/1.73sqm Invalid Interpretation Code AO Chemistry S GFR Non- 80 ml/min/1.73sqm Invalid Interpretation Code AO Chemistry S Monocyte Distribution Width Not Performed 1 *NA* (11/15/21 3:37 PM) Invalid Interpretation Code 0.00 - 20.00 AO Hematology S Comment on above: Result Comment: MDW testing performed only on adult ER patients between the ages of 18-89 years. TSHon 11-15-2021 TSH Qn 0.99 m[IU]/L Normal 0.36-3.74 [facility] ([place]) Comment on above: Performed By: #### H CGQ, FT4, TSH, FERR, CMP, GFR #### [address] [place], [place] [address] [id number] 06-24-2021 Date of Onset [id number] Invalid Interpretation Code [facility] ([place]) Comment on above: Performed By: #### Roseann BOOTHD19 ####[address] [place], [place] [address] Employed in Healthcare No [facility] ([place] Comment on above: Performed By: ###Orly GREENWOOD9 ####[address] [place], [place] [address] First Test No [facility] ([place]) Comment on above: Performed By: #### Roseann OVD19 ####[address] [place], [place] [address] Hospitalized No [facility] ([place]) Comment on above: Performed By: #### Roseann OVNorberto9 ####[address] [place], [place] [address] ICU No Normal [facility] ([place]) Comment on above: Performed By: #### C OVD19 ####[address] [place], [place] [address] Not Normal [facility] ([place]) Comment on above: Performed By: #### C OVD19 ####[address] [place], [place] [address] Resides in Congregate Care Setting No Normal [facility] ([place]) Comment on above: Performed By: #### C OVD19 ####[address] [place], [place] [address] SARS-CoV-2 (COVID-19) RNA LISS+probe Ql (Unsp spec) Positive Abnormal Negative [facility] ([place]) Comment on above: Performed By: #### C OVD19 ####[address] [place], [place] [address] SARS-CoV-2 (COVID-19) RNA LISS+probe Ql (Unsp spec) Normal [facility] ([place]) Comment on above: Result Comment: Posi tive results are indicative of the presence of SARS-CoV-2 RNA; clinical correlation with patient history and other diagnostic information is necessary to determine patient infection status. Positive results do not rule out bacterial infection or co-infection with other viruses. The agent detected may not be the definite cause of disease. Laboratories within the [facility] and its territories are required to report all positive results to the appropriate public health authorities. Detection of analyte target(s) does not imply that the corresponding virus(es) are infectious or are the causative agents for clinical symptoms. There is a risk of false positive values resulting from cross-contamination by target organisms, their nucleic acids or amplified product, or from non-specific signals in the assay. MARTITA SARS-CoV-2 Assay is a Real-Time reverse-transcriptase polymerase chain reaction (RT-PCR) based qualitative in vitro diagnostic test intended for the qualitative detection of nucleic acid from the SARS-CoV-2 in nasopharyngeal swab specimens collected from individuals suspected of COVID-19 by their healthcare provider. Testing is limited to laboratories certified under the Clinical Laboratory Improvement Amendments of 1988 (CLIA), 42 U.S.C. ?263a, to perform moderate and high complexity tests. COVID-19 Int Performed By: #### C OVD19 ####[address] [place] [address] Symptomatic as Defined by CDC Yes [facility] ([place]) Comment on above: Performed By: #### C OVD19 ####[address] [place] [address] [id number] 06-17-2021 Date of Onset [id number] Invalid Interpretation Code [facility] ([place]) Comment on above: Performed By: #### C OVD19 #### [address] [address] Employed in Healthcare No [facility] ([place] Comment on above: Performed By: #### C OVD19 #### [address] [place] [address] First Test No [facility] ([place]) Comment on above: Performed By: #### C OVD19 #### [address] [address] Hospitalized No [facility] ([place] Comment on above: Performed By: #### C OVD19 #### [address] [address] ICU No [facility] ([place]) Comment on above: Performed By: #### C OVD19 #### [address] [place] [address] Not [facility] ([place]) Comment on above: Performed By: #### C OVD19 #### Rosi [address] [address] Resides in Congregate Care Setting No [facility] ([place]) Comment on above: Performed By: #### C OVD19 #### Rosi [address] [address] SARS-CoV-2 (COVID-19) RNA LISS+probe Ql (Unsp spec) Negative Normal Negative [facility] ([place]) Comment on above: Performed By: #### C OVD19 #### [address] [address] SARS-CoV-2 (COVID-19) RNA LISS+probe Ql (Unsp spec) [facility] ([place]) Comment on above: Result Comment: Nega tive results do not preclude SARS-CoV-2 infection and should not be used as the sole basis for patient management decisions. Negative results must be combined with clinical observations, patient history, and epidemiological information. There is a risk of false negative values resulting from improperly collected, transported, or handled specimens. There is a risk of false negative values due to the presence of sequence variants in the pathogen targets of the assay, procedural errors, amplification inhibitors in specimens, or inadequate numbers of organisms for amplification. MARTITA SARS-CoV-2 Assay is a Real-Time reverse-transcriptase polymerase chain reaction (RT-PCR) based qualitative in vitro diagnostic test intended for the qualitative detection of nucleic acid from the SARS-CoV-2 in nasopharyngeal swab specimens collected from individuals suspected of COVID-19 by their healthcare provider. Testing is limited to laboratories certified under the Clinical Laboratory Improvement Amendments of 1988 (CLIA), 42 U.S.C. ?263a, to perform moderate and high complexity tests. COVID-19 Int Performed By: #### C OVD19 #### [address] [address] Symptomatic as Defined by CDC Yes [facility] ([place] Comment on above: Performed By: #### C OVD19 #### [address] [address] LABORATORYOrdered By: Mitra Vail on 06-16-2021 ADMITTED TO INTENSIVE CARE UNIT FOR CONDITION OF INTEREST:FIND:PT:^PAT IENT:ORD: No (06/16/21 6:42 PM) Invalid Interpretation Code AO Auto Urine SS EMPLOYED IN A HEALTHCARE SETTING:FIND:PT:^CLAUDIA ENT:ORD: No (06/16/21 6:42 PM) Invalid Interpretation Code AO Auto Urine SS FIRST TEST FOR CONDITION OF INTEREST:FIND:PT:^PAT IENT:ORD: No (06/16/21 6:42 PM) Invalid Interpretation Code AO Auto Urine SS HAS SYMPTOMS RELATED TO CONDITION OF INTEREST:FIND:PT:^PAT IENT:ORD: Yes (06/16/21 6:42 PM) Invalid Interpretation Code AO Auto Urine SS Illness or injury onset date and time 20210607 Invalid Interpretation Code AO Auto Urine SS Patient was hospitalized because of this condition No (06/16/21 6:42 PM) Invalid Interpretation Code AO Auto Urine SS status Not (06/16/21 6:42 PM) Invalid Interpretation Code AO Auto Urine SS RESIDES IN A CONGREGATE CARE SETTING:FIND:PT:^CLAUDIA ENT:ORD: No (06/16/21 6:42 PM) Invalid Interpretation Code AO Auto Urine SS SARS-CoV-2 (COVID-19) RNA LISS+probe Ql (Resp) Negative (06/16/21 6:42 PM) Invalid Interpretation Code Negative AO Auto Urine SS SARS-CoV-2 (COVID-19) RNA LISS+probe Ql (Unsp spec) Negative results do not preclude SARS-CoV-2 infection and should not be used as the sole basis for patient management decisions. Negative results must be combined with clinical observations, patient history, and epidemiological information.There is a risk of false negative values resulting from improperly collected, transported, or handled specimens.There is a risk of false negative values due to the presence of sequence variants in the pathogen targets of the assay, procedural errors, amplification inhibitors in specimens, or inadequate numbers of organisms for amplification.MARTITA SARS-CoV-2 Assay is a Real-Time reverse-transcriptas e polymerase chain reaction (RT-PCR) based qualitative in vitro diagnostic test intended for the qualitative detection of nucleic acid from the SARS-CoV-2 in nasopharyngeal swab specimens collected from individuals suspected of COVID-19 by their healthcare provider. Testing is limited to laboratories certified under the Clinical Laboratory Improvement Amendments of 1988 (CLIA), 42 U.S.C. 263a, to perform moderate and high complexity tests. Invalid Interpretation Code AO Auto Urine SS [id number] 06-09-2021 Date of Onset 20210607 Invalid Interpretation Code [facility] ([place]) Comment on above: Performed By: #### C OVD19 ####[address] [place], [place] [address] Employed in Healthcare No Normal [facility] ([place] Comment on above: Performed By: #### C OVD19 ####[address] [place], [place] [address] First Test Yes Normal [facility] ([place]) Comment on above: Performed By: #### C OVD19 ####[address] [place], [place] [address] Hospitalized No [facility] ([place] Comment on above: Performed By: #### C OVD19 ####[address] [place] [address] ICU No Normal [facility] ([place] Comment on above: Performed By: #### C OVD19 ####[address] [place] [address] Not [facility] ([place] Comment on above: Performed By: #### C OVD19 ####[address] [place] [address] Resides in Congregate Care Setting No [facility] ([place] Comment on above: Performed By: #### C OVD19 ####[address] [place], [place] [address] SARS-CoV-2 (COVID-19) RNA LISS+probe Ql (Unsp spec) Negative Normal Negative [facility] ([place] Comment on above: Performed By: #### C OVD19 ####[address] [place], [place] [address] SARS-CoV-2 (COVID-19) RNA LISS+probe Ql (Unsp spec) Normal [facility] ([place] Comment on above: Result Comment: Nega tive results do not preclude SARS-CoV-2 infection and should not be used as the sole basis for patient management decisions. Negative results must be combined with clinical observations, patient history, and epidemiological information. There is a risk of false negative values resulting from improperly collected, transported, or handled specimens. There is a risk of false negative values due to the presence of sequence variants in the pathogen targets of the assay, procedural errors, amplification inhibitors in specimens, or inadequate numbers of organisms for amplification. MARTITA SARS-CoV-2 Assay is a Real-Time reverse-transcriptase polymerase chain reaction (RT-PCR) based qualitative in vitro diagnostic test intended for the qualitative detection of nucleic acid from the SARS-CoV-2 in nasopharyngeal swab specimens collected from individuals suspected of COVID-19 by their healthcare provider. Testing is limited to laboratories certified under the Clinical Laboratory Improvement Amendments of 1988 (CLIA), 42 U.S.C. ?263a, to perform moderate and high complexity tests. COVID-19 Int Performed By: #### C OVD19 ####[address] [place], [place] [address] Symptomatic as Defined by CDC Yes Normal [facility] ([place] Comment on above: Performed By: #### C OVD19 ####[address] [place], [place] [address] LABORATORYOrdered By: Lora Tejeda on 06-09-2021 ADMITTED TO INTENSIVE CARE UNIT FOR CONDITION OF INTEREST:FIND:PT:^PAT IENT:ORD: No (06/09/21 2:49 PM) Invalid Interpretation Code AO Auto Urine SS EMPLOYED IN A HEALTHCARE SETTING:FIND:PT:^CLAUDIA ENT:ORD: No (06/09/21 2:49 PM) Invalid Interpretation Code AO Auto Urine SS FIRST TEST FOR CONDITION OF INTEREST:FIND:PT:^PAT IENT:ORD: Yes (06/09/21 2:49 PM) Invalid Interpretation Code AO Auto Urine SS HAS SYMPTOMS RELATED TO CONDITION OF INTEREST:FIND:PT:^PAT IENT:ORD: Yes (06/09/21 2:49 PM) Invalid Interpretation Code AO Auto Urine SS Illness or injury onset date and time [id number] Invalid Interpretation Code AO Auto Urine SS Patient was hospitalized because of this condition No (06/09/21 2:49 PM) Invalid Interpretation Code AO Auto Urine SS status Not (06/09/21 2:49 PM) Invalid Interpretation Code AO Auto Urine SS RESIDES IN A CONGREGATE CARE SETTING:FIND:PT:^CLAUDIA ENT:ORD: No (06/09/21 2:49 PM) Invalid Interpretation Code AO Auto Urine SS SARS-CoV-2 (COVID-19) RNA LISS+probe Ql (Resp) Negative (06/09/21 2:49 PM) Invalid Interpretation Code Negative AO Auto Urine SS SARS-CoV-2 (COVID-19) RNA LISS+probe Ql (Unsp spec) Negative results do not preclude SARS-CoV-2 infection and should not be used as the sole basis for patient management decisions. Negative results must be combined with clinical observations, patient history, and epidemiological information.There is a risk of false negative values resulting from improperly collected, transported, or handled specimens.There is a risk of false negative values due to the presence of sequence variants in the pathogen targets of the assay, procedural errors, amplification inhibitors in specimens, or inadequate numbers of organisms for amplification.MARTITA SARS-CoV-2 Assay is a Real-Time reverse-transcriptas e polymerase chain reaction (RT-PCR) based qualitative in vitro diagnostic test intended for the qualitative detection of nucleic acid from the SARS-CoV-2 in nasopharyngeal swab specimens collected from individuals suspected of COVID-19 by their healthcare provider. Testing is limited to laboratories certified under the Clinical Laboratory Improvement Amendments of 1988 (CLIA), 42 U.S.C. 263a, to perform moderate and high complexity tests. Invalid Interpretation Code AO Auto Urine SS [id number] 02-17-2021 Date of Onset 20210207 Invalid Interpretation Code [facility] ([place] Comment on above: Performed By: #### C OVD19 #### [place] [address] Employed in Healthcare No [facility] ([place] Comment on above: Performed By: #### C OVD19 #### [place] [address] First Test No [facility] ([place] Comment on above: Performed By: #### C OVD19 #### [place] [address] Hospitalized No [facility] ([place] Comment on above: Performed By: #### C OVD19 #### [place] [address] ICU No [facility] ([place] Comment on above: Performed By: #### C OVD19 #### [place] [address] Unknown [facility] ([place] Comment on above: Performed By: #### C OVD19 #### [place] [address] Resides in Congregate Care Setting No [facility] ([place] Comment on above: Performed By: #### C OVD19 #### [facility] [address] [place] [id number] SARS-CoV-2 (COVID-19) RNA LISS+probe Ql (Unsp spec) Negative Normal Negative [facility] ([place] Comment on above: Performed By: #### C OVD19 #### [address] [address] SARS-CoV-2 (COVID-19) RNA LISS+probe Ql (Unsp spec) Normal [facility] ([place]) Comment on above: Result Comment: Nega tive results do not preclude SARS-CoV-2 infection and should not be used as the sole basis for patient management decisions. Negative results must be combined with clinical observations, patient history, and epidemiological information. There is a risk of false negative values resulting from improperly collected, transported, or handled specimens. There is a risk of false negative values due to the presence of sequence variants in the pathogen targets of the assay, procedural errors, amplification inhibitors in specimens, or inadequate numbers of organisms for amplification. MARTITA SARS-CoV-2 Assay is a Real-Time reverse-transcriptase polymerase chain reaction (RT-PCR) based qualitative in vitro diagnostic test intended for the qualitative detection of nucleic acid from the SARS-CoV-2 in nasopharyngeal swab specimens collected from individuals suspected of COVID-19 by their healthcare provider. Testing is limited to laboratories certified under the Clinical Laboratory Improvement Amendments of 1988 (CLIA), 42 U.S.C. ?263a, to perform moderate and high complexity tests. COVID-19 Int Performed By: #### C OVD19 #### [address] [address] Symptomatic as Defined by CDC No Normal [facility] ([place] Comment on above: Performed By: #### C OVD19 #### [address] [address] Vital Signs Date Time Vital Sign Value Performing Clinician Aman crow 03-06-2025 14:49-0400 Body mass index (BMI) [Ratio] 40.74 kg/m2 Daylin Lopez MD Work Phone: [facility] 03-06-2025 14:49-0400 Body weight 104.33 kg Daylin Lopez MD Work Phone: [facility] 03-06-2025 14:49-0400 Diastolic blood pressure 76 mm[Hg] Daylin Lopez MD Work Phone: [facility] 03-06-2025 14:49-0400 Systolic blood pressure 132 mm[Hg] Daylin Lopez MD Work Phone: [facility] 02-26-2025 15:31-0400 Body mass index (BMI) [Ratio] 40.03 kg/m2 Amrita Sullivan MD Work Phone: [facility] 02-26-2025 15:31-0400 Body weight 102.51 kg Amrita Sullivan MD Work Phone: [facility] 02-26-2025 15:31-0400 Diastolic blood pressure 72 mm[Hg] Amrita Sullivan MD Work Phone: [facility] 02-26-2025 15:31-0400 Systolic blood pressure 118 mm[Hg] Amrita Sullivan MD Work Phone: [facility] 02-02-2025 16:14-0400 Body mass index (BMI) [Ratio] 39.68 kg/m2 Susy Tan OLSEN.CNM Work Phone: [facility] 02-02-2025 16:14-0400 Body weight 101.61 kg Susy Tan MANAGER GENERATION.CNM Work Phone: [facility] 02-02-2025 16:14-0400 Diastolic blood pressure 62 mm[Hg] Susy Maddox MANAGER GENERATION.CNM Work Phone: [facility] 02-02-2025 16:14-0400 Systolic blood pressure 108 mm[Hg] Susy Maddox MANAGER GENERATION.CNM Work Phone: [facility] 01-12-2025 16:28-0400 Body mass index (BMI) [Ratio] 40 kg/m2 Amrita Sullivan MD Work Phone: [facility] 01-12-2025 16:28-0400 Body weight 102.42 kg Amrita Sullivan MD Work Phone: [facility] 01-12-2025 16:28-0400 Diastolic blood pressure 74 mm[Hg] Amrita Sullivan MD Work Phone: [facility] 01-12-2025 16:28-0400 Systolic blood pressure 112 mm[Hg] Amrita Sullivan MD Work Phone: [facility] 12-09-2024 16:10-0400 Body mass index (BMI) [Ratio] 40.03 kg/m2 Susy Maddox MANAGER GENERATION.CNM Work Phone: [facility] 12-09-2024 16:10-0400 Body weight 102.51 kg Susy Maddox MANAGER GENERATION.CNM Work Phone: [facility] 12-09-2024 16:10-0400 Diastolic blood pressure 78 mm[Hg] Susy Maddox MANAGER GENERATION.CNM Work Phone: [facility] 12-09-2024 16:10-0400 Systolic blood pressure 120 mm[Hg] Susy Maddox MANAGER GENERATION.CNM Work Phone: [facility] 11-03-2024 14:35-0400 Body height 160 cm Mary Kate [place] MANAGER GENERATION.CAR REPOSSESSOR Work Phone: [facility] 11-03-2024 14:35-0400 Body mass index (BMI) [Ratio] 39.54 kg/m2 Mary Kate Fabian MANAGER GENERATION.CAR REPOSSESSOR Work Phone: [facility] 11-03-2024 14:35-0400 Body weight 101.24 kg Mary Kate [place] MANAGER GENERATION.CAR REPOSSESSOR Work Phone: [facility] 11-03-2024 14:35-0400 Diastolic blood pressure 70 mm[Hg] Mary Kate Fabian MANAGER GENERATION.CAR REPOSSESSOR Work Phone: [facility] 11-03-2024 14:35-0400 Systolic blood pressure 112 mm[Hg] Mary Kate [place] MANAGER GENERATION.CAR REPOSSESSOR Work Phone: [facility] 04-11-2024 08:28-0400 Body mass index (BMI) [Ratio] 37.35 kg/m2 Verónica Haury MANAGER GENERATION.CAR REPOSSESSOR Work Phone: [facility] 04-11-2024 08:28-0400 Body weight 100.25 kg Verónica Moss MANAGER GENERATION.CAR REPOSSESSOR Work Phone: [facility] 04-11-2024 08:28-0400 Diastolic blood pressure 82 mm[Hg] Verónica Haury MANAGER GENERATION.CAR REPOSSESSOR Work Phone: [facility] 04-11-2024 08:28-0400 Heart rate 92 /min Verónica Haury MANAGER GENERATION.CAR REPOSSESSOR Work Phone: [facility] 04-11-2024 08:28-0400 Respiratory rate 14 /min Verónica Haury MANAGER GENERATION.CAR REPOSSESSOR Work Phone: [facility] 04-11-2024 08:28-0400 SaO2% (BldA) [Mass fraction] 98 % Verónica Edwardsgeovanna MANAGER GENERATION.CAR REPOSSESSOR Work Phone: [facility] 04-11-2024 08:28-0400 Systolic blood pressure 120 mm[Hg] Verónica Haury MANAGER GENERATION.CAR REPOSSESSOR Work Phone: [facility] 10-31-2022 08:58-0400 Body height 163.8 cm Kaitlin Talley MD Work Phone: [facility] 10-31-2022 08:58-0400 Body weight 92.53 kg Kaitlin Talley MD Work Phone: [facility] 10-31-2022 08:58-0400 Diastolic blood pressure 76 mm[Hg] Kaitlin Talley MD Work Phone: [facility] 10-31-2022 08:58-0400 Systolic blood pressure 114 mm[Hg] Kaitlin Talley MD Work Phone: [facility] Encounters Encounter Date Encounter Type Care Provider Facility Start: 05-01-2025 End: 05-01-2025 ambulatory DAYLIN LOPEZ Facility:[facility] Start: 04-08-2025 End: 04-08-2025 ambulatory AMRITA SULLIVAN Facility:[facility] Start: 04-03-2025 End: 04[facility] Start: 03-06-2025 End: 03-06-2025 Patient encounter procedure Daylin Lopez MD Work Phone: OB/Gynecology Comment on above: Obesity affecting pr egnancy in second trimester, unspecified obesity type (HCC) (Primary Dx); Depression affecting (HCC) Start: 03-06-2025 End: 03-06-2025 ambulatory DAYLIN LOPEZ Facility:[facility] Start: 02-26-2025 End: 02-26-2025 Patient encounter procedure Amrita Sullivan MD Work Phone: OB/Gynecology Comment on above: ASCUS with positive high risk HPV cervical (Primary Dx); Screening for diabetes mellitus; 23 weeks gestation of (HCC) Start: 02-26-2025 End: 02-26-2025 [facility] Start: 02-03-2025 End: 02-03-2025 Telephone encounter Katlin Burns MD Work Phone: OB/Gynecology Comment on above: Results Start: 02-02-2025 End: 02-02-2025 Patient encounter procedure Susy Maddox APRN.CNM Work Phone: OB/Gynecology Comment on above: Supervision of high risk in second trimester (HCC) (Primary Dx); 20 weeks gestation of (HCC); Obesity affecting in second trimester, unspecified obesity type (HCC); ASCUS with positive high risk HPV cervical; Rubella non-immune status, antepartum (HCC); Encounter for anatomic survey (HCC); Suspected anomaly not found Encounter for anatomic survey (HCC) (Primary Dx); 20 weeks gestation of (HCC); Suspected anomaly not found; Other obesity affecting in second trimester (HCC) Start: 02-02-2025 End: 02-02-2025 ambulatory SUSY MADDOX Facility:[facility] Start: 01-15-2025 End: 01-15-2025 Telephone encounter Emma Villela MD Work Phone: [facility] Start: 01-12-2025 End: 01-12-2025 ambulatory AMRITA SULLIVAN Facility:[facility] Start: 01-12-2025 End: 01-12-2025 Patient encounter procedure Amrita Sullivan MD Work Phone: OB/Gynecology Comment on above: Supervision of high risk due to social problems, antepartum (HCC) (Primary Dx); 17 weeks gestation of (HCC); Obesity in (HCC); Rubella non-immune status, antepartum (HCC) Start: 01-08-2025 End: 01-08-2025 ambulatory GENI SHARP Facility:[facility] Start: 01-08-2025 End: 01-08-2025 Patient encounter procedure Whi Tech 2 Electronic Musical Instrument Repairer [facility] Comment on above: Encounter for anatomic survey (HCC) (Primary Dx); Obesity in (HCC); 16 weeks gestation of (HCC) Start: 12-22-2024 End: 12-24-2024 Telephone encounter Susy Maddox APRN.CNM Work Phone: OB/Gynecology Start: 12-09-2024 End: 12-09-2024 ambulatory [facility] Facility:[facility] Start: 12-09-2024 End: 12-09-2024 Patient encounter procedure Susy Maddox APRN.CNM Work Phone: OB/Gynecology Comment on above: Supervision of high risk due to social problems, antepartum (HCC) (Primary Dx); Obesity in (HCC) Obesity in (HCC) (Primary Dx); 7 weeks gestation of (HCC) Start: 12-09-2024 End: 12-09-2024 ambulatory MARY KATE TOWANDA Facility:[facility] Start: 11-25-2024 End: 11-27-2024 Telephone encounter Susy Maddox APRN.CNM Work Phone: OB/Gynecology Comment on above: OB Spotting Start: 11-20-2024 End: 11-20-2024 Telephone encounter [facility] JANICE Work Phone: OB/Gynecology Comment on above: Abnormal Pap Start: 11-04-2024 End: 01-04-2025 Follow-up encounter Mary Kate Peralta CAR REPOSSESSOR Work Phone: OB/Gynecology Comment on above: Results Start: 11-03-2024 End: 11-03-2024 Patient encounter procedure Mary Kate Peralta CAR REPOSSESSOR Work Phone: OB/Gynecology Comment on above: Supervision of high risk due to social problems, antepartum (HCC) (Primary Dx); 7 weeks gestation of (HCC); with uncertain dates, antepartum (HCC); Screen for STD (sexually transmitted disease); Screening for cervical cancer; Special screening examination for human papillomavirus (HPV); BMI 39.0-39.9,adult Start: 11-03-2024 End: 11-03-2024 ambulatory MARY KATE SPANGLERCALF Facility:[facility] Start: 06-13-2024 End: 06-17-2024 ambulatory SUSY PRICE APRN-CAR REPOSSESSOR Facility[facility] Start: 06-13-2024 End: 06-17-2024 Outreach Lab SOFIA LOVE APRN-CAR REPOSSESSOR [facility] Start: 04-11-2024 End: 04-11-2024 Patient encounter procedure Verónica Moss APRN.CNP Work Phone: OB/Gynecology Comment on above: Encounter for gyneco logical examination (general) (routine) without abnormal findings (Primary Dx); Screen for STD (sexually transmitted disease) Start: 04-11-2024 End: 04-11-2024 Patient encounter status Verónica Moss APRN.CAR REPOSSESSOR Work Phone: [facility] Start: 10-31-2022 End: 10-31-2022 Patient encounter procedure Kaitlin Talley MD Work Phone: OB/Gynecology Comment on above: Encounter for gyneco logical examination (general) (routine) without abnormal findings (Primary Dx) Start: 10-31-2022 End: 10-31-2022 Patient encounter status Kaitlin Talley MD Work Phone: OB/Gynecology Start: 02-07-2022 End: 02-11-2022 Outreach Lab SUSY PRICE MANAGER GENERATION-CAR REPOSSESSOR [facility] Start: 11-15-2021 End: 11-15-2021 Patient encounter procedure SUSY PRICE MANAGER GENERATION-CAR REPOSSESSOR [facility] Start: 06-16-2021 End: 06-16-2021 Patient encounter procedure SHYAM SINGH MANAGER GENERATION-CAR REPOSSESSOR [facility] Start: 06-09-2021 End: 06-09-2021 Patient encounter procedure ADAL BARTON MANAGER GENERATION-CAR REPOSSESSOR [facility] Start: 08-20-2017 End: 08-20-2017 [facility] Facility:[facility] Procedures Date Procedure Procedure Detail Performing Clinician Start: 02-02-2025 Us preg uterus after 1st trimest 1/1st gestation Mary Kate Fabian MANAGER GENERATION.CAR REPOSSESSOR Work Phone: Start: 01-08-2025 Us preg uterus after 1st trimest 1/1st gestation Geni Sharp MD Work Phone: Start: 12-09-2024 Antibody screen MARY KATE RUBIO Comment on above: Order Comment: Speci men Type: BLOOD SPECIMEN Ordering Facility: [facility] Address: [address] [place] [address] Performed By: #### T SPN #### [facility] CLIA [id number] [address] [place] [address] [place] Start: 12-09-2024 Us preg uterus after 1st trimest 1/1st gestation Mary Kate Fabian MANAGER GENERATION.CAR REPOSSESSOR Work Phone: Start: 11-03-2024 Us uterus limited 1/> fetuses Mary Kate Fabian MANAGER GENERATION.CAR REPOSSESSOR Work Phone: Plan of Treatment Date Care Activity Detail Author Start: 11-03-2025 Screening for malignant neoplasm of cervix Cervical Cancer Screening [facility] Start: 05-27-2025 End: 05-27-2025 Patient encounter procedure Maternal [facility] Comment on above: growth 38 wks OB Start: 05-01-2025 End: 05-01-2025 Patient encounter procedure Maternal Medicine Comment on above: growth 32 wks OB Start: 04-27-2025 RSV Vaccine (1 - Ris k 1-dose series) RSV Vaccine (1 - Risk 1-dose series) [facility] Start: 04-13-2025 End: 04-13-2025 Patient encounter procedure 04/13/2025 4:00 PM EDT Office Visit OB/Gynecology [address] [place] [address] Verónica Moss APRN.CAR REPOSSESSOR [address] [place] [address] Annual OB/Gynecology Comment on above: Annual Start: 04-03-2025 End: 04-03-2025 Patient encounter procedure 04/03/2025 2:40 PM EDT Routine Office Visit OB/Gynecology [address] [place] [address] Amrita Sullivan MD [address] [place] [address] OB/glucose/growth OB/Gynecology Comment on above: OB/glucose/growth Start: 04-03-2025 End: 04-03-2025 ambulatory 04/03/2025 2:15 PM EDT Results Only [place] Dias [facility] [address] [place] [address] glucose + labs [place] [facility] Comment on above: glucose + labs Start: 04-03-2025 End: 04-03-2025 Patient encounter procedure 04/03/2025 1:30 PM EDT Routine Office Visit Maternal Medicine [address] [place] [address] growth Maternal Medicine Comment on above: growth Start: 03-28-2025 End: 06-27-2025 ANEMIA REFLEX PANEL ANEMIA REFLEX PANEL Lab Routine 23 weeks gestation of ([facility]) Expected: 03/28/2025 (Approximate), Expires: 06/27/2025 [facility] Comment on above: Expected: 03/28/2025 (Approximate), Expires: 06/27/2025 Start: 03-28-2025 End: 02-26-2026 GESTATIONAL GLUCOSE SCREEN, 1-HOUR, 50 GRAM, NON-FASTING GESTATIONAL GLUCOSE SCREEN, 1-HOUR, 50 GRAM, NON-FASTING Lab Routine Screening for diabetes mellitus 23 weeks gestation of ([facility]) Expected: 03/28/2025 (Approximate), Expires: 02/26/2026 [facility] Comment on above: Expected: 03/28/2025 (Approximate), Expires: 02/26/2026 Start: 03-28-2025 End: 02-26-2026 SYPHILIS TREPONEMAL W/REFLEX SYPHILIS TREPONEMAL W/REFLEX Lab Routine 23 weeks gestation of ([facility]) Expected: 03/28/2025 (Approximate), Expires: 02/26/2026 [facility] Comment on above: Expected: 03/28/2025 (Approximate), Expires: 02/26/2026 Start: 03-06-2025 End: 03-06-2025 Patient encounter procedure 03/06/2025 2:50 PM EDT Routine Office Visit OB/Gynecology [address] [place], [place] [address] Daylin Lopez MD [address] [place] [address] needs ultrasound? OB OB/Gynecology Comment on above: needs ultrasound? OB Start: 02-26-2025 End: 02-26-2025 Patient encounter procedure OB/Gynecology Comment on above: : ASCUS with positiv e high risk HPV cervical [R87.610, R87.810] OB/ has colposcopy a ppt at 3:40 w/ lisa Start: 02-23-2025 Influenza vaccination C [facility] Start: 02-02-2025 End: 02-02-2025 Patient encounter procedure Maternal Medicine Comment on above: Anatomy Anatomy/OB Start: 01-12-2025 End: 01-12-2025 Patient encounter procedure 01/12/2025 4:20 PM EDT Routine Office Visit OB/Gynecology [address] [place] [address] Amrita Sullivan MD [address] [place] [address] OB OB/Gynecology Comment on above: OB Start: 01-08-2025 End: 01-08-2025 Patient encounter procedure 01/08/2025 2:00 PM EDT Routine Office Visit Maternal Medicine [address] [id number] Dx: Obesity in (HCC) [O99.210] Maternal Medicine Comment on above: Dx: Obesity in pregn carolyn (HCC) [O99.210] Start: 01-05-2025 End: 01-05-2025 Patient encounter procedure 01/05/2025 3:10 PM EDT Routine Office Visit OB/Gynecology [address] [place] [address] Kaitlin Talley MD [address] [place] [address] OB OB/Gynecology Comment on above: OB Start: 12-19-2024 End: 12-19-2024 Patient encounter procedure 12/19/2024 3:40 PM EDT Office Visit OB/Gynecology [address] [place] [address] Daylin Lopez MD [address] [place] [address] OB Colposcopy OB/Gynecology Comment on above: OB Colposcopy Start: 12-10-2024 End: 12-10-2025 OBSTETRIC ULTRASOUND WHI OBSTETRIC ULTRASOUND WHI Anc Imaging Routine Obesity in (HCC) Expected: 12/10/2024, Expires: 12/10/2025 [facility] Work Phone: Comment on above: Expected: 12/10/2024 , Expires: 12/10/2025 Start: 12-09-2024 End: 12-09-2024 Patient encounter procedure Maternal Medicine Comment on above: Nuchal Est New OB /Nuchal/O B Start: 12-09-2024 End: 03-10-2025 Chromosome 21 trisomy [Presence] in Blood or Tissue by Cytogenetics [facility] Comment on above: Expected: 12/09/2024 , Expires: 03/10/2025 Start: 12-09-2024 End: 03-10-2025 HEMOGLOBIN EVALUATION CASCADE [facility] Work Phone: Comment on above: Expected: 12/09/2024 , Expires: 03/10/2025 Start: 11-03-2024 End: 02-02-2025 ANEMIA REFLEX PANEL ANEMIA REFLEX PANEL Lab Routine with uncertain dates, antepartum (HCC) Expected: 11/03/2024, Expires: 02/02/2025 [facility] Work Phone: Comment on above: Expected: 11/03/2024 , Expires: 02/02/2025 Start: 11-03-2024 End: 02-02-2025 Hemoglobin A1c in Blood HEMOGLOBIN A1C Lab Routine with uncertain dates, antepartum (HCC) Expected: 11/03/2024, Expires: 02/02/2025 [facility] Comment on above: Expected: 11/03/2024 , Expires: 02/02/2025 Start: 11-03-2024 End: 02-02-2025 Hepatitis B virus surface Ag [Presence] in Serum HEPATITIS B SURFACE ANTIGEN Lab Routine with uncertain dates, antepartum (HCC) Expected: 11/03/2024, Expires: 02/02/2025 [facility] Comment on above: Expected: 11/03/2024 , Expires: 02/02/2025 Start: 11-03-2024 End: 02-02-2025 Hepatitis C virus Ab [Presence] in Serum HEPATITIS C ANTIBODY IA WITH CONFIRMATION Lab Routine with uncertain dates, antepartum (HCC) Expected: 11/03/2024, Expires: 02/02/2025 [facility] Comment on above: Expected: 11/03/2024 , Expires: 02/02/2025 Start: 11-03-2024 End: 02-02-2025 HIV 1+2 Ab [Presence] in Serum or Plasma by Immunoassay HIV 1/2 COMBO WITH REFLEX TO DIFFERENTIATION Lab Routine with uncertain dates, antepartum (HCC) Expected: 11/03/2024, Expires: 02/02/2025 [facility] Comment on above: Expected: 11/03/2024 , Expires: 02/02/2025 Start: 11-03-2024 End: 11-03-2025 OBSTETRIC ULTRASOUND WHI OBSTETRIC ULTRASOUND WHI Anc Imaging Routine 7 weeks gestation of (HCC) Expected: 11/03/2024, Expires: 11/03/2025 [facility] Comment on above: Expected: 11/03/2024 , Expires: 11/03/2025 Start: 11-03-2024 End: 02-02-2025 RUBELLA IGG ANTIBODY RUBELLA IGG ANTIBODY Lab Routine with uncertain dates, antepartum (HCC) Expected: 11/03/2024, Expires: 02/02/2025 [facility] Comment on above: Expected: 11/03/2024 , Expires: 02/02/2025 Start: 11-03-2024 End: 02-02-2025 SYPHILIS TREPONEMAL W/REFLEX SYPHILIS TREPONEMAL W/REFLEX Lab Routine with uncertain dates, antepartum (HCC) Expected: 11/03/2024, Expires: 02/02/2025 [facility] Comment on above: Expected: 11/03/2024 , Expires: 02/02/2025 Start: 11-03-2024 End: 02-02-2025 TYPE + SCREEN TYPE + SCREEN Blood Bank Routine with uncertain dates, antepartum (HCC) Expected: 11/03/2024, Expires: 02/02/2025 [facility] Comment on above: Expected: 11/03/2024 , Expires: 02/02/2025 Start: 09-02-2024 PAP TESTING PAP TESTING [facility] Start: 09-02-2024 Screening for malignant neoplasm of cervix Cervical Cancer Screening [facility] Start: 02-24-2024 Covid-19 Vaccine () Covid-19 Vaccine () [facility] Start: 02-24-2024 Influenza vaccination Influenza Vacc ine (#1) [facility] Start: 02-23-2023 Influenza vaccination INFLUENZA (Sea son Ended) [facility] Start: 06-25-2022 DEPRESSION ASSESSMENT DEPRESSION ASS ESSMENT [facility] Start: 01-07-2020 Urine microalbumin profile [facility] Start: 2014 Anxiety Screening Anxiety Screening [facility] Start: 2014 Depression Screening Depression Scre ening [facility] Start: 2014 HEPATITIS C SCREENING HEPATITIS C [facility] Start: 2014 Hepatitis C screening Hepatitis C [facility] Start: 2014 HIV SCREENING HIV SCREENING [facility] Start: 2014 HIV screening HIV Screening [facility] Start: 2010 PEDS TO ADULT TRANSITION ANNUAL ASSESSMENT PEDS TO ADULT TRANSITION ANNUAL ASSESSMENT [facility] Start: 2008 PEDS TO ADULT TRANSITION INITIAL DISCUSSION PEDS TO ADULT TRANSITION INITIAL DISCUSSION [facility] Start: 01-28-1997 COVID-19 VACCINE (#1) COVID-19 VACCI NE (#1) [facility] Bacteria identified in Urine by Culture BACTERIAL CULTURE, URINE Microbiology Routine with uncertain dates, antepartum (HCC) 11/03/2024 3:32 PM EDT [facility] Chlamydia trachomatis+Neisseria gonorrhoeae DNA [Presence] in Unspecified specimen by LISS with probe detection GONORRHEA/CHLAMYDIA NAAT Lab Routine Encounter for gynecological examination (general) (routine) without abnormal findings 04/11/2024 9:06 AM EDT [facility] Work Phone: Chlamydia trachomatis+Neisseria gonorrhoeae DNA [Presence] in Unspecified specimen by LISS with probe detection GONORRHEA/CHLAMYDIA NAAT Lab Routine with uncertain dates, antepartum (HCC) 11/03/2024 3:32 PM EDT [facility] COLPOSCOPY COLPOSCOPY Proce dures Routine ASCUS with positive high risk HPV cervical Ordered: 11/20/2024 [facility] Work Phone: Comment on above: Ordered: 11/20/2024 COLPOSCOPY COLPOSCOPY Proce dures Routine ASCUS with positive high risk HPV cervical Ordered: 02/26/2025 [facility] Work Phone: Comment on above: Ordered: 02/26/2025 End: 06-22-2025 OBSTETRIC ULTRASOUND WHI OBSTETRIC ULTRASOUND WHI Anc Imaging Routine Obesity affecting in second trimester, unspecified obesity type (HCC) Once per month for 4 Occurrences starting 03/06/2025 until 06/22/2025 [facility] Work Phone: Comment on above: Once per month for 4 Occurrences starting 03/06/2025 until 06/22/2025 PAP TEST PAP TEST Lab [facility] Screening for cervical cancer Special screening examination for human papillomavirus (HPV) Ordered: 11/03/2024 [facility] Comment on above: Ordered: 11/03/2024 TRICHOMONAS VAGINALI S NAAT TRICHOMONAS VAGINALIS NAAT Lab Routine Screen for STD (sexually transmitted disease) 04/11/2024 9:06 AM EDT [facility] TRICHOMONAS VAGINALI S NAAT TRICHOMONAS VAGINALIS NAAT Lab Routine Screen for STD (sexually transmitted disease) 11/03/2024 3:32 PM EDT [facility] Immunizations Immunization Date Immunization Notes Care Provider [employer] law 03-25-2013 influenza, live, intranasal, quadrivalent Kaitlin Talley MD Work Phone: [facility] Work Phone: 03-25-2013 influenza virus vacc ine, unspecified formulation Verónica Moss MANAGER GENERATION.[employer] REPOSSESSOR Work Phone: [facility] 07-30-2012 human papilloma viru s vaccine, quadrivalent Kaitlin Talley MD Work Phone: [facility] Work Phone: 07-30-2012 Human Papillomavirus [employer]val [employer] MANAGER GENERATION[employer] REPOSSESSOR [facility] 05-29-2012 influenza virus vacc ine, live, attenuated, for intranasal use Kaitlin Talley MD Work Phone: [facility] Work Phone: 05-29-2012 influenza virus vacc ine, unspecified formulation ADAL BARTON MANAGER GENERATION-[employer] REPOSSESSOR [facility] 02-28-2012 human papilloma viru s vaccine, quadrivalent Kaitlin Talley MD Work Phone: [facility] Work Phone: 02-28-2012 Human Papillomavirus Quadval [facility] 12-22-2011 human papilloma viru s vaccine, quadrivalent Kaitlin Talley MD Work Phone: [facility] Work Phone: 12-22-2011 Human Papillomavirus Quadval [facility] 01-06-2010 diphtheria and tetan us toxoids, adsorbed for pediatric use [facility] 01-08-2009 meningococcal polysaccharide (groups A, C, Y and W-135) diphtheria toxoid conjugate vaccine (MCV4P) [facility] 02-18-2002 diphtheria, tetanus toxoids and acellular pertussis vaccine [facility] 02-18-2002 measles, mumps and rubella virus vaccine Kaitlin Talley MD Work Phone: [facility] Work Phone: 02-18-2002 measles/mumps/rubell a virus vaccine [facility] 02-18-2002 poliovirus vaccine, inactivated [facility] 03-14-1999 varicella virus vaccine [facility] 05-26-1998 diphtheria, tetanus toxoids and acellular pertussis vaccine [facility] 05-26-1998 haemophilus influenz ae type b vaccine, PRP-T conjugate [facility] 05-26-1998 poliovirus vaccine, inactivated [facility] 08-03-1997 hepatitis B vaccine, unspecified formulation [facility] 08-03-1997 measles, mumps and rubella virus vaccine Kaitlin Talley MD Work Phone: [facility] Work Phone: 08-03-1997 measles/mumps/rubell a virus vaccine [facility] 02-11-1997 diphtheria, tetanus toxoids and acellular pertussis vaccine [facility] 02-11-1997 haemophilus influenz ae type b vaccine, PRP-T conjugate [facility] 1996 diphtheria, tetanus toxoids and acellular pertussis vaccine [facility] 1996 haemophilus influenz ae type b vaccine, PRP-T conjugate [facility] MANAGER [facility] 1996 poliovirus vaccine[facility] inactivated [facility] MANAGER GENERATION[employer] REPOSSESSOR [facility] 1996 diphtheria, tetanus toxoids and acellular pertussis vaccine [facility] MA[facility] [employer] REPOSS[employer]OR [facility] 1996 haemophilus influenz ae type b vaccine, PRP-T conjugate [facility] MANAGER [employer] REPOSS[employer]OR [facility] 1996 hepatitis B vaccine, unspecified formulation [facility] MANAGER [facility] 1996 poliovirus vaccine, inactivated [facility] MANAGER [employer] REPOSSESSOR [facility] 1996 hepatitis B vaccine, unspecified formulation [facility] MANAGER [employer] REPOSSESSOR [facility] Payers Date Payer Category Payer Private Health Insurance MMO SU[employer] O Member Subscriber Plan / Payer (Effective 2022-Present) Name: Jes Franks Relation to Subscriber: Self Name: Jes Franks Payer ID: Not on file Type: PPO Address: [place] [id number] 2022 Unknown [id number] 2022 Unknown [id number] 2017 Self-pay 1996 Unknown [id number] Social History Date Type Detail Facility Start: 08-04-2019 End: 01-24-2023 Light tobacco smoker (finding) [facility] Sex Assigned At Female [facility] Start: 08-11-2021 End: 10-31-2022 Tobacco smoking status Ex-smoker (finding) [facility] History of tobacco use Current smoker [facility] History of tobacco use Cigarette Smoker C [facility] Start: 10-31-2022 Tobacco use and exposure Smoke less tobacco non-user [facility] Start: 10-31-2022 End: 03-06-2025 Alcohol intake Current drinker of alcohol (finding) [facility] Start: 11-26-2018 Alcohol Comment social [facility] Start: 1996 Sex Assigned At Not on file C [facility] Start: 04-11-2024 End: 11-03-2024 History of Social function [facility] Start: 04-11-2024 End: 11-03-2024 Tobacco use panel [facility] Start: 05-26-2012 National Score (1-10 0), lower number is lower risk 55 [facility] Sexual Orientation [facility] Start: 12-18-2018 Sex Female (finding) [facility] Start: 09-29-2024 [facility] Goals Date Patient Goal Desired Activity /State Personal health goal Clinical Notes 02-09-2022 to 03-06-2025 Quick Notes - Daylin Lopez MD - 03/06/2025 4:57 PM EDTPrenatal Quick Notes - Daylin Lopez MD - 03/06/2025 4:57 PM EDTPatiAmrita Laws MD - 02/26/2025 3:26 PM EDT Note Date & Type Note Facility 03-06-2025 Progress note Formatting of t his note might be different from the original. S: Jes Franks is a 29 year old female who presents at 06/22/2025, by Last Menstrual Period for a routine visit. Denies headache, visual changes, chest pain, shortness of breath, vaginal bleeding, leakage of fluid, or dysuria. Feeling well, no complaints. Good movement, No contractions O: See flow sheet Gen: No apparent distress Abd: Gravid, nontender Recently in [place] for vacation. Had some swelling that hasn't completely resolved. Intermittent headaches that occur mostly at work. Glucose next visit. Needs growth q4 starting at 28 weeks. Previously on Prozac for anxiety and depression. Would like to restart. Can feel her anxiety getting worse. Denied SI/HI ASSESSMENT/PLAN: 1. Obesity affecting in second trimester, unspecified obesity type (HCC) - ICD9: 649.13, ICD10: O99.212 (primary diagnosis) Body mass index is 40.74 kg/m . Weekly NSTs at 32 Growth q 4 at 28 - OBSTETRIC ULTRASOUND WHI 2. Depression affecting (HCC) - ICD9: 648.40, 311, ICD10: O99.340, F32.A Would like to restart Prozac\ Discussed risk of withdrawal and depression. Daylin Lopez MD [facility] 03-06-2025 Miscellaneous Notes S: Jes Franks is a 29 year old female who presents at 06/22/2025, by Last Menstrual Period for a routine visit. Denies headache, visual changes, chest pain, shortness of breath, vaginal bleeding, leakage of fluid, or dysuria. Feeling well, no complaints. Good movement, No contractions O: See flow sheet Gen: No apparent distress Abd: Gravid, nontender Recently in [place] for vacation. Had some swelling that hasn't completely resolved. Intermittent headaches that occur mostly at work. Glucose next visit. Needs growth q4 starting at 28 weeks. Previously on Prozac for anxiety and depression. Would like to restart. Can feel her anxiety getting worse. Denied SI/HI ASSESSMENT/PLAN: 1. Obesity affecting in second trimester, unspecified obesity type (HCC) - ICD9: 649.13, ICD10: O99.212 (primary diagnosis) Body mass index is 40.74 kg/m . Weekly NSTs at 32 Growth q 4 at 28 - OBSTETRIC ULTRASOUND WHI 2. Depression affecting (HCC) - ICD9: 648.40, 311, ICD10: O99.340, F32.A Would like to restart Prozac\ Discussed risk of withdrawal and depression. Daylin Lopez MD documented in this encounter [facility] 03-06-2025 Instructions Surya Christianson LPN - 03/06/2025 2:48 PM EDT SEQUENTIAL SCREENINGS The [facility] offers sequential screenings for women who are interested in screenings for chromosomal abnormalities and certain defects during a . The sequential screen combines ultrasound and blood tests to determine the risk of chromosomal abnormalities, including Down's Syndrome (Trisomy 21) and Trisomy 18, as well as open neural tube defects including spina bifida. Ultrasound examination is performed between 11 weeks and 13 weeks gestational age. Blood tests are drawn after the ultrasound and again later in the between 15 and 21 weeks gestational age. Please let your physician know if you are interested in this testing. It will require an appointment with our mold technician. This is not an ultrasound performed by a physician in our office during a routine visit. SIGNS AND SYMPTOMS OF LABOR 1. Contractions every 10 minutes or more often 2. Clear, pink, or brownish fluid (water) leaking from vagina 3. Feeling that baby is pushing down, pressure 4. Low, dull backache 5. Cramps that feel like a period 6. Cramps with or without diarrhea If you notice any of the above symptoms, contact our office at [phone] and ask to speak with a nurse. After hours, you can call doctors registry at [phone] OR call [facility] at [phone] and ask to have the doctor environmental geologist paged. If you consider this an emergency, dial 2-8-9 or go to your nearest emergency department. NEED HELP? Are you dealing with a violent or abusive relationship? Are you a victim of rape or sexual assult? Call [facility] ([place]) 24 hour Crisis Hotline: 820.530.5144 or 879-182-4867. MANUAL Your Guide to a Healthy manual is now on-line. Visit [email or web address] to download your free copy documented in this encounter [facility] 02-26-2025 Note HNO ID: [id number] Author: AMRITA SULLIVAN MD Service: ? Author Type: Physician Type: Progress Notes Filed: 02/26/2025 18:04 Note Text: Pl Sql Programmer offered: Patient declines. Andre is a 29 year old who presents today for a colposcopy. The patient's last pap smear was ASCUS with positive HPV from October 2024. Patient has a history of abnormal pap: Yes. The patient has had prior treatment: none. 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 Appropriate PPE (Personal Protective Equipment) worn by all providers involved with the procedure. Special equipment not required. Patient/Surrogate Stated/Verified: Patient name, Date of , Relevant allergies, and The intended procedure Time Out: Relevant labs, photos, and/or imaging studies have been reviewed. Intended patient and procedure match the source document(s) (e.g. consent, HANDP, associated studies [imaging, pathology]) match the intended patient and procedure. Consent obtained and matches the intended procedure. Yes. Correct side/site is not applicable. Medications required for this procedure are verified. Fire risk assessed and is not applicable. Implants: are not applicable. Sign Out: Specimens not collected. All instruments, equipment, possible retained foreign bodies are accounted for. Yes. The post-procedure plan of care has been communicated to the patient or surrogate. PROCEDURE: EXTERNAL GENITALIA: Normal in appearance without lesions VAGINA: Normal in appearance without lesions CERVIX: Speculum placed in vagina and excellent visualization of cervix achieved. Cervix swabbed x 3 with 3% acetic acid solution. Cervix grossly normal. Squamocolumnar junction visualized. No punctations, mosaicism or atypical vasculature noted. Minimal acetowhite changes at the 12 o'clock position. BIOPSY: Not done. ECC: not done HEMOSTASIS: N/A Procedure Summary: Patient tolerated procedure well and colposcopy was adequate. ASSESSMENT: HPV effect PLAN: Post-procedure instructions reviewed and written material given to the patient. Follow up for abnormal pap test. RTO for routine OB visit. Amrita Sullivan DO [facility] 02-26-2025 History of Presen t illness Narrative Pl Sql Programmer offered: Patient declines. Jes is a 29 year old who presents today for a colposcopy. The patient's last pap smear was ASCUS with positive HPV from October 2024. Patient has a history of abnormal pap: Yes. The patient has had prior treatment: none. 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 Appropriate PPE (Personal Protective Equipment) worn by all providers involved with the procedure. Special equipment not required. Patient/Surrogate Stated/Verified: Patient name, Date of , Relevant allergies, and The intended procedure Time Out: Relevant labs, photos, and/or imaging studies have been reviewed. Intended patient and procedure match the source document(s) (e.g. consent, H&P, associated studies [imaging, pathology]) match the intended patient and procedure. Consent obtained and matches the intended procedure. Yes. Correct side/site is not applicable. Medications required for this procedure are verified. Fire risk assessed and is not applicable. Implants: are not applicable. Sign Out: Specimens not collected. All instruments, equipment, possible retained foreign bodies are accounted for. Yes. The post-procedure plan of care has been communicated to the patient or surrogate. PROCEDURE: EXTERNAL GENITALIA: Normal in appearance without lesions VAGINA: Normal in appearance without lesions CERVIX: Speculum placed in vagina and excellent visualization of cervix achieved. Cervix swabbed x 3 with 3% acetic acid solution. Cervix grossly normal. Squamocolumnar junction visualized. No punctations, mosaicism or atypical vasculature noted. Minimal acetowhite changes at the 12 o'clock position. BIOPSY: Not done. ECC: not done HEMOSTASIS: N/A Procedure Summary: Patient tolerated procedure well and colposcopy was adequate. ASSESSMENT: HPV effect PLAN: Post-procedure instructions reviewed and written material given to the patient. Follow up for abnormal pap test. RTO for routine OB visit. Amrita Sullivan DO documented in this encounter [facility] 02-26-2025 Instructions Jacquie Massey MA - 02/26/2025 3:26 PM EDT YOUR RECOVERY It may take a few weeks for your cervix to heal. While your cervix heals, you may have: - Vaginal bleeding (less than a normal menstrual period) - Mild cramping - A brown-black vaginal discharge (similar to coffee grounds) which is a result of the paste used to help stop bleeding from the procedure Do NOT put anything in the vagina for 1 week after your colposcopy if your doctor does a biopsy of your cervix. This includes sex, tampons, and douches. If you have any discomfort, you may take an over the counter pain medication (motrin, advil, ibuprofen, tylenol, etc). If this does not relieve your discomfort, contact your doctor's office for a prescription strength pain medication. It is okay to wear a sanitary pad until the discharge and spotting stops. RISKS Although problems seldom occur with colposcopy, there can be some complications. You may feel faint during and shortly after the procedure as well as have some bleeding and vaginal discharge after the procedure. There is also a risk of infection after the procedure. These complications are rare and can be easily treated. You should contact you doctor is you have any of the following: - Heavy bleeding (more than your normal period) - Bleeding with clots - Severe abdominal pain - Fever (more than 100.4F) - Foul smelling vaginal discharge RESULTS If a biopsy was taken, we will have the results of your biopsy in 1-2 weeks. If you do not hear the results of your biopsy after 2 weeks, please contact your physicians office for the results. Depending on the biopsy results, your doctor will determine your follow up plan which may include further testing or treatments. STAYING HEALTHY After the procedure, you will need to see your doctor for follow up visits during the year. At these visits your doctor will check the health of your cervix with a pap smear. After three normal pap smears, your doctor will allow you to return to having exams once a year. If you have another abnormal pap smear, you may need closer follow up for longer or you may need additional treatment. By making a few lifestyle changes after the procedure, you can help protect the health of your cervix: - Have regular pelvic exams and pap smears as ordered by your doctor. - Stop smoking as smoking increases your risk of developing a cancer of the cervix - If you have more than one sexual partner, limit your number of partners and use condoms to reduce your risks of STDs. If you have any additional questions, please contact your doctor's office. documented in this encounter [facility] 02-03-2025 Telephone encounter Note Should start at 32 weeks We can order these at a future visit. Katlin Burns MD [facility] Work Phone: 02-03-2025 Miscellaneous Notes Should start at 32 weeks We can order these at a future visit. Katlin Burns MD Patient needs order for q 4 week growth ultrasounds. Are they supposed to start now or at 32 weeks? Ruby Andre RN Anatomy u/s reviewed. No abnormalities identified. Follow up as clinically indicated. Please notify patient and place on record. Recommendations Serial growth ultrasounds every 4 weeks. Weekly testing starting at 36 weeks. Additional follow-up as clinically indicated. Mary Kate Peralta APRN.CAR REPOSSESSOR documented in this encounter [facility] 02-03-2025 Telephone encounter Note Patient needs order for q 4 week growth ultrasounds. Are they supposed to start now or at 32 weeks? Ruby Andre RN [facility] 02-03-2025 Telephone encounter Note Anatomy u/s reviewed. No abnormalities identified. Follow up as clinically indicated. Please notify patient and place on record. Recommendations Serial growth ultrasounds every 4 weeks. Weekly testing starting at 36 weeks. Additional follow-up as clinically indicated. Mary Kate Peralta APRN.CAR REPOSSESSOR [facility] 02-02-2025 Progress note Formatting of t his note is different from the original. MARISA-S: Jes Franks is a 29 year old female who presents at 20w0d with ROGER:06/22/2025, by Last Menstrual Period for a routine visit. Denies headache, visual changes, chest pain, shortness of breath, vaginal bleeding, leakage of fluid, or dysuria. Feeling well, no complaints. O: See flow sheet Gen: No apparent distress Abd: Gravid, nontender ASSESSMENT/PLAN: 1. Supervision of high risk in second trimester -Continue PNV -Continue ASA -Awaiting Anatomy US results 2. 20 weeks gestation of 3. Obesity affecting in second trimester, unspecified obesity type Pregravid BMI 41 Growth US every 4 wk at 32 weeks NST weekly at 32 weeks 4. ASCUS with positive high risk HPV cervical -Colposcopy scheduled 5. Rubella non-immune status, antepartum -Vaccine PP PTL precautions reviewed and when to call RTO in 4 weeks Susy Maddox APRN.CNM [facility] 02-02-2025 Miscellaneous Notes MARISA-S: Jes Franks is a 29 year old female who presents at 20w0d with ROGER:06/22/2025, by Last Menstrual Period for a routine visit. Denies headache, visual changes, chest pain, shortness of breath, vaginal bleeding, leakage of fluid, or dysuria. Feeling well, no complaints. O: See flow sheet Gen: No apparent distress Abd: Gravid, nontender ASSESSMENT/PLAN: 1. Supervision of high risk in second trimester -Continue PNV -Continue ASA -Awaiting Anatomy US results 2. 20 weeks gestation of 3. Obesity affecting in second trimester, unspecified obesity type Pregravid BMI 41 Growth US every 4 wk at 32 weeks NST weekly at 32 weeks 4. ASCUS with positive high risk HPV cervical -Colposcopy scheduled 5. Rubella non-immune status, antepartum -Vaccine PP PTL precautions reviewed and when to call RTO in 4 weeks Susy Maddox APRN.CNM documented in this encounter [facility] 02-02-2025 Instructions Kayla Miller MA - 02/02/2025 4:13 PM EDT SEQUENTIAL SCREENINGS The [facility] offers sequential screenings for women who are interested in screenings for chromosomal abnormalities and certain defects during a . The sequential screen combines ultrasound and blood tests to determine the risk of chromosomal abnormalities, including Down's Syndrome (Trisomy 21) and Trisomy 18, as well as open neural tube defects including spina bifida. Ultrasound examination is performed between 11 weeks and 13 weeks gestational age. Blood tests are drawn after the ultrasound and again later in the between 15 and 21 weeks gestational age. Please let your physician know if you are interested in this testing. It will require an appointment with our mold technician. This is not an ultrasound performed by a physician in our office during a routine visit. SIGNS AND SYMPTOMS OF LABOR 1. Contractions every 10 minutes or more often 2. Clear, pink, or brownish fluid (water) leaking from vagina 3. Feeling that baby is pushing down, pressure 4. Low, dull backache 5. Cramps that feel like a period 6. Cramps with or without diarrhea If you notice any of the above symptoms, contact our office at [phone] and ask to speak with a nurse. After hours, you can call doctors registry at [phone] OR call [facility] at [phone] and ask to have the doctor environmental geologist paged. If you consider this an emergency, dial 9-9-2 or go to your nearest emergency department. NEED HELP? Are you dealing with a violent or abusive relationship? Are you a victim of rape or sexual assult? Call [facility] ([place]) 24 hour Crisis Hotline: 862.246.3913 or 077-219-2421. MANUAL Your Guide to a Healthy manual is now on-line. Visit [email or web address] to download your free copy documented in this encounter [facility] 01-15-2025 Telephone encounter Note [facility] scheduled [facility]. [facility] [place] [facility] Prevention of Cervical Cancer [facility] 01-15-2025 Miscellaneous Notes APC 2 Patient reviewed mesg regarding Colpo, appt scheduled via PSS. Dylan Bryan [facility] Prevention of Cervical Cancer documented in this encounter [facility] 01-12-2025 Progress note Formatting of t his note might be different from the original. SW- No pain, vb, lof. Some constipation PE: Gen- NAD, well appearing Abd- Soft, gravid - Cont LDA - Reviewed treatment of constipation - Discussed abnormal pap smear results and recommend scheduling colposcopy - Completed early anatomy US. Schedule 20 wk anatomy - RTO anatomy and visit Amrita Sullivan DO [facility] 01-12-2025 Miscellaneous Notes SW- No pain, vb, lof. Some constipation PE: Gen- NAD, well appearing Abd- Soft, gravid - Cont LDA - Reviewed treatment of constipation - Discussed abnormal pap smear results and recommend scheduling colposcopy - Completed early anatomy US. Schedule 20 wk anatomy - RTO anatomy and visit Amrita Sullivan DO documented in this encounter [facility] 01-12-2025 Instructions Jacquie Massey MA - 01/12/2025 4:28 PM EDT SEQUENTIAL SCREENINGS The [facility] offers sequential screenings for women who are interested in screenings for chromosomal abnormalities and certain defects during a . The sequential screen combines ultrasound and blood tests to determine the risk of chromosomal abnormalities, including Down's Syndrome (Trisomy 21) and Trisomy 18, as well as open neural tube defects including spina bifida. Ultrasound examination is performed between 11 weeks and 13 weeks gestational age. Blood tests are drawn after the ultrasound and again later in the between 15 and 21 weeks gestational age. Please let your physician know if you are interested in this testing. It will require an appointment with our mold technician. This is not an ultrasound performed by a physician in our office during a routine visit. SIGNS AND SYMPTOMS OF LABOR 1. Contractions every 10 minutes or more often 2. Clear, pink, or brownish fluid (water) leaking from vagina 3. Feeling that baby is pushing down, pressure 4. Low, dull backache 5. Cramps that feel like a period 6. Cramps with or without diarrhea If you notice any of the above symptoms, contact our office at [phone] and ask to speak with a nurse. After hours, you can call doctors registry at [phone] OR call [facility] at [phone] and ask to have the doctor environmental geologist paged. If you consider this an emergency, dial [phone]--7 or go to your nearest emergency department. NEED HELP? Are you dealing with a violent or abusive relationship? Are you a victim of rape or sexual assult? Call [facility] ([place]) 24 hour Crisis Hotline: 162.512.9791 or 907-925-1898. MANUAL Your Guide to a Healthy manual is now on-line. Visit [email or web address] [email or web address] to download your free copy documented in this encounter [facility] 12-10-2024 Progress note Formatting of t his note might be different from the original. Anatomy ultrasound reviewed. NEEDS 16 and 20 week US APPT. No abnormalities identified. Follow up as clinically indicated. Please place copy in ob chart. Kaitlin Talley MD [facility] 12-10-2024 Miscellaneous Notes Anatomy ultrasound reviewed. NEEDS 16 and 20 week US APPT. No abnormalities identified. Follow up as clinically indicated. Please place copy in ob chart. Kaitlin Tallye MD Pap ASCUS and HPV+, she will need a colp. Currently . Order filed. Mary Kate Peralta APRN.DEBBI documented in this encounter [facility] 12-09-2024 Note HNO ID: [id number] Author: SUSY MADDOX APRN.CNM Service: ? Author Type: Research Management Associate Type: Progress Notes Filed: 12/09/2024 16:36 Note Text: MARISA-S: Jes Franks is a 29 year old female who presents at 12w1d with ROGER:06/22/2025, by Last Menstrual Period for a routine visit. Denies headache, visual changes, chest pain, shortness of breath, vaginal bleeding, leakage of fluid, or dysuria. Feeling well, no complaints. First trimester anatomy today O: See flow sheet Gen: No apparent distress Abd: nontender ASSESSMENT/PLAN: 1. Supervision of high risk due to social problems, antepartum - HEMOGLOBIN EVALUATION CASCADE - [id number] PLUS - PN labs today - Declines carrier screening. 2. Obesity in Pregravid BMI 39 Growth US every 4 wk at 32 weeks NST weekly at 36 weeks PTL precautions reviewed and when to call RTO in 4 weeks Susy Maddox APRN.CNM [facility] 12-09-2024 History of Presen t illness Narrative MACO: Jes Franks is a 29 year old female who presents at 12w1d with ROGER:06/22/2025, by Last Menstrual Period for a routine visit. Denies headache, visual changes, chest pain, shortness of breath, vaginal bleeding, leakage of fluid, or dysuria. Feeling well, no complaints. First trimester anatomy today O: See flow sheet Gen: No apparent distress Abd: nontender ASSESSMENT/PLAN: 1. Supervision of high risk due to social problems, antepartum - HEMOGLOBIN EVALUATION CASCADE - [id number] PLUS - PN labs today - Declines carrier screening. 2. Obesity in Pregravid BMI 39 Growth US every 4 wk at 32 weeks NST weekly at 36 weeks PTL precautions reviewed and when to call RTO in 4 weeks Susy Maddox APRN.CNM documented in this encounter [facility] 11-25-2024 Telephone encounter Note Left message for patient to call office. Viry Hacnock, FARIDA [facility] 11-25-2024 Miscellaneous Notes Left message for patient to call office. Viry Hancock, FARIDA I would recommend appointment tomorrow for environmental geologist provider 11:30 or 3:30 if possible. Thanks, Susy Maddox APRN.CNM 10w1d Calling c/o spotting that started last evening 11/19. More dark red/brown in color, has never been bright red. Only minimal amount on underwear and notices it with wiping more. Intermittent mild cramping with it, but still very minimal as well. States she has has spotting all throughout so far, but it has never last this long. No recent intercourse prior to it starting. No available appts today or tomorrow. Her next appt is scheduled for 12/09. Please advise. Jennifer Rodriguez RN documented in this encounter [facility] 11-25-2024 Telephone encounter Note I would recommend appointment tomorrow for environmental geologist provider 11:30 or 3:30 if possible. Thanks, Susy Maddox APRN.CNM [facility] Work Phone: 11-25-2024 Telephone encounter Note 10w1d Calling c/o spotting that started last evening 11/19. More dark red/brown in color, has never been bright red. Only minimal amount on underwear and notices it with wiping more. Intermittent mild cramping with it, but still very minimal as well. States she has has spotting all throughout so far, but it has never last this long. No recent intercourse prior to it starting. No available appts today or tomorrow. Her next appt is scheduled for 12/09. Please advise. Jennifer Rodriguez RN [facility] 11-20-2024 Telephone encounter Note Patient notified. Lampe scheduled. Daylin Boucher RN [facility] 11-20-2024 Miscellaneous Notes Patient notified. Lampe scheduled. Daylin Boucher RN Left message for patient to call office. Jennifer Rodriguez RN Mary Kate ePralta APRN.CNP 11/20/24 7:02 AM Note Pap ASCUS and HPV+, she will need a colp. Currently . Order filed. Mary Kate Peralta APRN.CNP documented in this encounter [facility] 11-20-2024 Telephone encounter Note Left message for patient to call office. Jennifer Rodriguez RN [facility] 11-20-2024 Telephone encounter Note Mary Kate Peralta APRN.CNP 11/20/24 7:02 AM Note Pap ASCUS and HPV+, she will need a colp. Currently . Order filed. Mary Kate Peralta APRN.CNP [facility] 11-20-2024 Telephone encounter Note Pap ASCUS and HPV+, she will need a colp. Currently . Order filed. Mary Kate Peralta APRN.CNP [facility] 11-03-2024 History of Presen t illness Narrative Patient declined paver layer. INITIAL OB ASSESSMENT HPI: Jes is a 29 year old White here to establish Obstetrical Care. Patient's last menstrual period was 09/15/2024 (exact date). from OB Dating Form. was unplanned but accepted Complaints: intermittent spotting no spotting for the past week OB History Gravida1 Para0 Term0 Preterm0 AB0 Living0 SAB0 IAB0 Ectopic0 Multiple0 Live Births0 Previous history: Prior : never History of 4th degree laceration: No History of shoulder dystocia: No History of Hypertensive disorders including pre-eclampsia or gestational hypertension: No History of gestational diabetes: No Patient's Risk Screening for delivery: Have you had a prior samano between 20w and 36w6d? No How many pregnancies have you had before? 0 Did you have a previous baby with a GBS Infection? No Please select all that apply for any prior : N/A MEDICAL/PSYCHOSOCIAL HISTORY: History of hemorrhage or bleeding concerns: No Thyroid Disease: No History of chronic hypertension: No History of pre-existing diabetes: No No results found for: ABORHD BMI 39.54 kg/(m^2) Last Pap: 09/02/2021, normal History of abnormal pap: No Prior treatment for cervical dysplasia: none. Last HPV: History of STDs: None Partner History of STDs: None Did you have a partner with Herpes? No Tobacco use: No E-Cigarette/Vaping Use: Yes Caffeine use: No Drug use: No Alcohol use: No Multivitamin with Folic acid: Yes Would refuse blood transfusion if medically necessary: No Social Needs: How often does this describe you? I don't have enough money to pay my bills: Never Within the past 12 months, have you worried that your food would run out before you had money to buy more? Never In the past 12 months, has lack of reliable transportation kept you from going to medical appointments or work, or from getting things needed for daily living? Never In the past 12 months, have you had any concerns about having a place to live, or about the condition or quality of your housing? Never Would you like more information on any of the following (please check all that apply)? Centering (group care classes) Social History: Do you have any history of depression, anxiety, PTSD, or other mood problems? No, just generalized anxiety Do you have a history of abuse or trauma that may impact your experience? No Are you currently employed? Yes Depression/Anxiety Screening: denies, admits to symptoms of depression. OB Depression and Anxiety Screening- This Encounter Over the past 2 weeks have you felt down, depressed, or hopeless? Negative Over the past two weeks, have you felt little interest or pleasure in doing things? Negative Feeling nervous, anxious or on edge 3-Nearly every day Not being able to stop or control worrying 0-Not al all Anxiety Pre-Screening Total (If >/= 3 additional questions will be reviewed) 3 Worrying too much about different things 3-Nearly every day Trouble relaxing 1-Several days Being so restless that it is hard to sit still 0-Not al all Becoming easily annoyed or irritable 2-More than half the days Feeling afraid, as if something awful might happen 0-Not al all Anxiety (YADIRA) Full Screening Total 9 Genetic Screening: Partner present: Yes Patient verbalized knowledge of partner family health history: Yes Do you or your partner have any personal or family history of defects not previously discussed: No Do you have history of a complicated by anomaly, genetic condition, or demise: No Preeclampsia Risk Screening: Screening for prevention of preeclampsia: High risk factors: None Moderate risk ractors: Nulliparity and Obesity (body mass index greater than 30) OB Risk Screening: Completed, no positive findings documented. 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 Lactobac no.41/Bifidobact no.7 (PROBIOTIC-10 ORAL) Take 1 tablet by mouth once daily. Drospirenone-Ethinyl Estradiol (FEDERICO, 28,) 3-0.02 mg per tablet Take 1 tablet by mouth once daily. (Patient not taking: Reported on 11/03/2024) 30 tablet 3 FLUoxetine (PROZAC) 40 mg capsule Take 40 mg by mouth once daily. (Patient not taking: Reported on 11/03/2024) triamcinolone acetonide (NASACORT NASAL) Use in the nose. No current facility-administered medications for this visit. Allergies As of Date: 11/03/2024 Allergen Noted Reaction AMOXICILLIN 11/26/2018 GI Upset and Vomiting Fully Assessed 11/03/2024 Does patient have penicillin allergy: Yes, plan for allergy testing. REVIEW OF SYSTEMS: GENERAL: Negative for: Fever or Chills HEENT: Negative for: Headache, Impaired Vision, Ringing in Ears, Nosebleeds NECK: Negative for: Swelling, Pain, Stiffness RESPIRATORY: Negative for: Cough, Shortness of breath, Wheezing GASTROINTESTINAL: Negative for: Heartburn, Constipation, Diarrhea, Blood in stool, Vomiting MUSCULOSKELETAL: Negative for: Muscle or joint pain, stiffness, Joint swelling NEUROLOGIC/PSYCHIATRIC: Negative for: Weakness, Paralysis, Numbness, Tingling, Tremor, Anxiety, Depression, Memory loss SKIN: Negative for: Rash, Itching GENITOURINARY: Negative for: vaginal itching, vaginal discharge, hematuria or dysuria SENSITIVE EXAM: The sensitive examination was discussed with the Patient or Patient's Authorized Pressure Dispatcher. As applicable, any other physician, advance practice provider, medical student, or other health professional student that will be observing or involved in the sensitive examination for educational or training purposes was discussed with the Patient or Authorized Pressure Dispatcher. The Patient or Authorized Pressure Dispatcher has agreed to proceed with the sensitive examination. (Sensitive examination includes inspection and/or palpation of the breasts, pelvis, prostate and anorectal regions). PHYSICAL EXAM: Ht 5' 3 (1.60m) Wt 223 lb 3.2 oz (101.2kg) LMP 09/15/2024 BMI 39.55 kg/(m^2). GENERAL: pleasant in no apparent distress DERMATOLOGY: Normal, without lesions, non-icteric, and non-hirsute NECK: Supple, full range of motion, no adenopathy, and thyroid normal CHEST: Normal inspiratory effort BREAST: soft, non-tender, symmetric, no dominant mass, normal nipple-areolar complex, no lymphadenopathy, and no nipple discharge ABDOMEN: soft, non-tender, and no masses NEURO: alert and oriented x3,exam grossly non-focal PELVIS: External genitalia normal without lesions. Perineal body intact. No vaginal or cervical lesions. Cervix closed. No adnexal masses or tenderness. Clinical Pelvimetry: Pelvimetry clinically assessed as adequate Limited OB ultrasound exam: single intrauterine and POCUS performed. +cardiac activity, CRL consistent with LMP. Mary Kate Peralta, PRETTY.CAR REPOSSESSOR ASSESSMENT: 29 year old at 7w0d wks gestational age PLAN: 1) Patient oriented to practice. Patient given new OB orientation folder. Discussed nutrition, folic acid supplementation, dietary guidelines, exercise, smoking, alcohol, caffeine, and drug use. Discussed gestational weight gain guidelines. Discussed routine OB labs including STD/HIV. Discussed how to access Your guide to a health and the Linux Support Engineer. Reviewed midwifery and webbing inspector services that are available. 2) Screening: Hemoglobin A1C: ordered Baby Aspirin: The patient has been counseled about the potential benefits of low dose aspirin in and our recommendation that this be offered to all patients, regardless of whether they meet the high risk criteria specified above. She Accepts Aneuploidy Screening: Discussed aneuploidy screening, nuchal translucency/first trimester early anatomy ultrasound and NIPT. The risks/benefits and limitations of NIPT/aneuploidy screening were reviewed including the potential for false negative and false positive results. The availability of genetic counseling was reviewed. Information on aneuploidy screening was provided. The patient chooses to proceed with First trimester early anatomy ultrasound (12-13w6d) Myriad Carrier Screening: Discussed myriad carrier screening. We discussed the availability of professional-society guided carrier screening and reviewed the conditions screened and limitations of screening. The availability of genetic counseling was reviewed. Information on carrier screening was provided. The patient Declines 3) Patient offered option of Virtual Visits. Patient unsure. May consider in future. 4) Obesity (BMI >30), will order early glucose screen or Hemoglobin A1C. Follow up in 4 weeks or sooner prberlin. Mary Kate Peralta APRN.CNP documented in this encounter [facility] 11-03-2024 Note HNO ID: [id number] Author: MARY KATE PERALTA APRN.CNP Service: ? Author Type: Nurse Practitioner Type: Progress Notes Filed: 11/03/2024 16:01 Note Text: Patient declined paver layer. INITIAL OB ASSESSMENT HPI: Jes is a 29 year old White here to establish Obstetrical Care. Patient's last menstrual period was 09/15/2024 (exact date). from OB Dating Form. was unplanned but accepted Complaints: intermittent spotting no spotting for the past week OB History Gravida1 Para0 Term0 Preterm0 AB0 Living0 SAB0 IAB0 Ectopic0 Multiple0 Live Births0 Previous history: Prior : never History of 4th degree laceration: No History of shoulder dystocia: No History of Hypertensive disorders including pre-eclampsia or gestational hypertension: No History of gestational diabetes: No Patient's Risk Screening for delivery: Have you had a prior samano between 20w and 36w6d? No How many pregnancies have you had before? 0 Did you have a previous baby with a GBS Infection? No Please select all that apply for any prior : N/A MEDICAL/PSYCHOSOCIAL HISTORY: History of hemorrhage or bleeding concerns: No Thyroid Disease: No History of chronic hypertension: No History of pre-existing diabetes: No No results found for: ABORHD BMI 39.54 kg/(m2) Last Pap: 09/02/2021, normal History of abnormal pap: No Prior treatment for cervical dysplasia: none. Last HPV: History of STDs: None Partner History of STDs: None Did you have a partner with Herpes? No Tobacco use: No E-Cigarette/Vaping Use: Yes Caffeine use: No Drug use: No Alcohol use: No Multivitamin with Folic acid: Yes Would refuse blood transfusion if medically necessary: No Social Needs: How often does this describe you? I don't have enough money to pay my bills: Never Within the past 12 months, have you worried that your food would run out before you had money to buy more? Never In the past 12 months, has lack of reliable transportation kept you from going to medical appointments or work, or from getting things needed for daily living? Never In the past 12 months, have you had any concerns about having a place to live, or about the condition or quality of your housing? Never Would you like more information on any of the following (please check all that apply)? Centering (group care classes) Social History: Do you have any history of depression, anxiety, PTSD, or other mood problems? No, just generalized anxiety Do you have a history of abuse or trauma that may impact your experience? No Are you currently employed? Yes Depression/Anxiety Screening: denies, admits to symptoms of depression. OB Depression and Anxiety Screening- This Encounter Over the past 2 weeks have you felt down, depressed, or hopeless? Negative Over the past two weeks, have you felt little interest or pleasure in doing things?? Negative Feeling nervous, anxious or on edge 3-Nearly every day Not being able to stop or control worrying 0-Not al all Anxiety Pre-Screening Total (If >/= 3 additional questions will be reviewed) 3 Worrying too much about different things 3-Nearly every day Trouble relaxing 1-Several days Being so restless that it is hard to sit still 0-Not al all Becoming easily annoyed or irritable 2-More than half the days Feeling afraid, as if something awful might happen 0-Not al all Anxiety (YADIRA) Full Screening Total 9 Genetic Screening: Partner present: Yes Patient verbalized knowledge of partner family health history: Yes Do you or your partner have any personal or family history of defects not previously discussed: No Do you have history of a complicated by anomaly, genetic condition, or demise: No Preeclampsia Risk Screening: Screening for prevention of preeclampsia: High risk factors: None Moderate risk ractors: Nulliparity and Obesity (body mass index greater than 30) OB Risk Screening: Completed, no positive findings documented. 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 Lactobac no.41/Bifidobact no.7 (PROBIOTIC-10 ORAL) Take 1 tablet by mouth once daily. Drospirenone-Ethinyl Estradiol (FEDERICO, 28,) 3-0.02 mg per tablet Take 1 tablet by mouth once daily. (Patient not taking: Reported on 11/03/2024) 30 tablet 3 FLUoxetine (PROZAC) 40 mg capsule Take 40 mg by mouth once daily. (Patient not taking: Reported on 11/03/2024) triamcinolone acetonide (NASACORT NASAL) Use in the nose. No current facility-administered medicati (more content not included)... [facility] 11-03-2024 Instructions Janna Riddle LPN - 11/03/2024 1:13 PM EDT Please select the following link to access the [facility] Your Guide to a Healthy . [email or web address] documented in this encounter [facility] 06-15-2024 Note . MICRO - Microbiology PROCEDURE: Urine Culture [*1] SOURCE: Urine, Clean Catch BODY SITE: COLLECTED DATE/TIME: 06/13/2024 12:59 EST RECEIVED DATE/TIME: 06/13/2024 19:01 EST START DATE/TIME: 06/13/2024 19:01 EST FREE TEXT SOURCE: FINAL REPORTS Final Report [] Verified Date/Time/Personnel: 06/15/2024 07:19 EST 50,000 - 100,000 cfu/ml Escherichia coli PRELIMINARY REPORTS Preliminary Report [] Verified Date/Time/Personnel: 06/14/2024 10:48 EST 50,000 - 100,000 cfu/ml Escherichia coli ALEXEI to follow SUSCEPTIBILITY RESULTS Escherichia coli Antibiotic ALEXEI Dilut ALEXEI Inter Ampicillin >16 Resistant Ampicillin/ 16/8 Intermediate Sulbactam Aztreonam <=4 Susceptible Cefazolin >16 Resistant Ceftazidime/ <=4 Susceptible Avibactam Ceftolozane/ <=2 Susceptible Tazobactam Ceftriaxone 8 Resistant Cefuroxime 16 Intermediate Ciprofloxacin <=0.25 Susceptible Ertapenem <=0.5 Susceptible Gentamicin <=2 Susceptible ID Panel Not Not Applicable Applicable Imipenem <=1 Susceptible Levofloxacin <=0.5 Susceptible Meropenem <=1 Susceptible Minocycline <=4 Susceptible Nitrofurantoin <=32 Susceptible Piperacillin/ <=8 Susceptible Tazobactam Trimethoprim/ <=0.5/9.5 Susceptible Sulfa Performing Locations *1: This test was performed at: [address], [facility] , [facility] 04-11-2024 Instructions Verónica Moss APRN.CNP - 04/11/2024 8:44 AM EDT Oral Contraceptives: The Pill Beginning the Pill Pills come in either a 21 day pack or a 28 day pack. With the 21 day pack you will take one pill for 21 days then no pill for 7 days, during which time you will have what is known as withdrawal bleeding. The 28 day pack allows you to take a pill every day of the cycle with no interruptions. The first 21 pills are the pills with the active ingredients and the last 7 are the nonmedical pills (placebo) or they may contain iron. There will be bleeding during the week you are taking the nonmedical pills. The advantage to the 28 day pack is that you don t have to keep track of when you stopped the pill. There are a group of 28 day pills that contain 24 active pills and only 4 placebo pills. These are formulated to give you a avionics electronics technician period. First day of next menstrual period start OR Quick Start (starting the day you get the pill) when reasonably certain not . Use 7 day back up contraception. OR Sunday start. Use back up contraception for 7 days. Sunday start can result in no period on weekends. Read your information packet that comes with the pills. Pill Benefits The pill is the most popular method of reversible control being used today. Millions of women rely on oral contraceptives as their control method. It is important to have an examination by your physician to determine if the pill is safe for you. There are several advantages associated with the pill: it is 97-98% effective when used correctly; may improve acne; periods are more regular and less painful; there is less iron deficiency anemia in pill users. FPC use is associated with a decreased incidence of ovarian and uterine cancer. There is also no evidence that the pill increases the incidence of any cancer. How Oral Contraceptives Work Oral contraceptives come in two varieties. One is the combination pill which contains both estrogen and progesterone. Combination pills are considered 98-99% effective in preventing . This pill comes in either monophasic, which delivers the same amount of estrogen and progesterone throughout the cycle; and triphasic, which try tries to mimic the normal hormone cycle by changing the levels of the hormones in the pills during the month. There is no real advantage to taking the one over the other. The other type of pill only contains progesterone. It is best used for women who can t take estrogen. This type of pill is slightly less effective than the combination pill in preventing . It is VERY important to take the progesterone only pill at the same time every day. Oral contraceptives prevent ovulation (release of an egg from the ovary) by suppressing the pituitary gland s action. The pill does NOT prevent sexually transmitted disease. Obtaining a Prescription It is important to see your doctor before starting oral contraceptives so that you can have a full medical history taken and a physical examination given. Certain medical conditions may make the pill inappropriate for you, therefore it is very important to be honest and as complete as possible with the information you share with your doctor. The types of predisposing factors which would make the pill a poor choice of control would include: History of blood clots Stroke Serious liver disease or impaired liver function Unexplained vaginal bleeding or Cancer of the reproductive system Active gall bladder disease Hypertension Possible Side Effects It can take up to three months for your body to become adjusted to the pill. The more common side effects experienced at this time are: breakthrough spotting or bleeding, which is bleeding at any other time other than when you should be having a period; nausea or vomiting; breast tenderness; and mild fluid retention. There is no termite treater helper weight gain with the use of the pill. Breakthrough bleeding is the most common complaint of new pill users. There is no way to predict who will have it and there is no way of preventing it. Breakthrough bleeding usually subsides on its own with no further treatment after the first three months of taking the pill. If these symptoms continue to occur after the first three months you should check with your physician to see if there is any physical cause and possibly change to another control pill. Problems: Missed 1 pill: Take 2 pills the next day. Missed 2 pills: Take 2 pills the next day and 2 pills the following day. Also use another form of control (condoms) along with the pill for the rest of the month. Missed 3 or more pills: You have two choices. You can take two pills each day until you are on schedule, plus use an additional form of control along with the pill for the rest of the month. Or you can stop the pill and start a completely new pack of pills the next Sunday. You must use another form of control with the pill for at least the first two weeks of the new pack. You re ill and you have been vomiting or have diarrhea: You must use another form of control with the pill since the pill may not be fully absorbed during your illness. Continue to use the added control until the end of the cycle. Desire to become : Stop using the pill for one month before trying to become . Taking other medications: The control pill is less effective when you take the antibiotic Rifampin, epilepsy (seizure) drugs such as phenytoin, carbamazepine, phenobarbital, topiramate and some medications for HIV. Let your doctor know if you start taking any of these medications while on the pill. Symptoms to Notify Your Doctor with Immediately: Pain in your chest or legs Continuous blurred vision Severe headaches Slurred speech Tingling or weakness on one side of your body Shortness of breath Swelling of one leg Refills of Control Pills You need to see a doctor every year for a refill of your prescription. This is necessary in order that your health can be monitored closely while you are taking control pills. If your prescription should before your next scheduled appointment you can usually get a one month extension from your doctors office if you call during regular business hours about one week before you need to start the new package of pills. This allows the physician to refer to your chart for necessary health information. documented in this encounter [facility] 04-11-2024 History of Presen t illness Narrative Pl Sql Programmer offered: Patient declinesStacia Andre is a 28 year old who presents for an annual gynecologic exam without complaints. Would like back on control - periods are somewhat heavy. New partner. Menses: cycles every 28-30 days and 3-5 days of flow. Contraception: none HPV vaccine: Yes Last Pap: 09/09/2021 normal HPV: N/A History of abnormal pap: No Last mammogram: never Sexually active: Yes History of STDS: None Patient concerns for STD exposure: No. 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 OB History T0 L0 SAB0 IAB0 Ectopic0 Multiple0 Live Births0 Geological Specialist History LMP: 04/07/2024 (Exact Date), Having periods Age at Menarche: Age at First : Age at Menopause: Geological Specialist History Comments: Sexual Activity: Yes; Male Contraception: Condom PAST MEDICAL HISTORY Diagnosis Date NEGATIVE MEDICAL HISTORY PAST SURGICAL HISTORY Procedure Laterality Date NONE No family history on file.SOCIAL HISTORY Social History Tobacco Use Smoking status: Former Types: Cigarettes Smokeless tobacco: Never Vaping Use Vaping status: Some Days Substances: Nicotine, Flavoring Devices: Pre-filled or refillable cartridge Substance Use Topics Alcohol use: Yes Comment: social Drug use: Never REVIEW OF SYSTEMS Abdomen: No abdominal pain, nausea, vomiting, diarrhea, or constipation. No bloating, early satiety, indigestion, or increased flatulence. Bladder: No dysuria, gross hematuria, urinary frequency, urinary urgency, or incontinence. Breast: No breast lumps, nipple d/c, overlying skin changes, redness or skin retraction. Allergies and current medication updated:Yes SENSITIVE EXAM: The sensitive examination was discussed with the Patient or Patient's Authorized Pressure Dispatcher. As applicable, any other physician, advance practice provider, medical student, or other health professional student that will be observing or involved in the sensitive examination for educational or training purposes was discussed with the Patient or Authorized Pressure Dispatcher. The Patient or Authorized Pressure Dispatcher has agreed to proceed with the sensitive examination. (Sensitive examination includes inspection and/or palpation of the breasts, pelvis, prostate and anorectal regions). EXAM: BP 120/82 Pulse 92 Resp 14 Wt 221 lb (100.2kg) SpO2 98% LMP 04/07/2024 GENERAL: pleasant, female in no apparent distress HEENT: Normocephalic, atraumatic, mucus membranes moist, and no lesions NECK: Supple, full range of motion, no adenopathy, and thyroid normal DERMATOLOGY: Normal, without lesions, non-icteric, and non-hirsute BREAST: soft, non-tender, symmetric, no dominant mass, normal nipple-areolar complex, no lymphadenopathy, and no nipple discharge CHEST: Normal inspiratory effort ABDOMEN: soft, non-tender, and no masses PELVIC: external genitalia normal, normal Bartholin's glands, urethra, [place]'s glands, no vulvar lesions, no cervical lesions, good vaginal support, physiologic discharge present, normal appearing perineal body and perianal region BIMANUAL: uterus normal size, shape and consistency, no adnexal masses, and non-tender. Limited due to habitus RECTOVAGINAL: rectovaginal exam negative for any masses or nodularity. NEURO: alert and oriented x3,exam grossly non-focal EXTREMITIES: normal ASSESSMENT/PLAN: 1) Health maintenance: Pap/HPV up to date 2021. Deferred until 2024. Nutrition, exercise and routine health maintenance exams reviewed. HPV vaccine: completed series Recommend cessation of vaping. Reviewed increased risk of blood clots, heart attack, stroke with OCP and vaping. Reviewed progesterone only pill would be safer option. Verbalizes understanding of risks. 2) Contraception: combined hormonal contraceptives. Denies migraines with aura, VTE history or clotting disorder, hypertension, or liver issues. Recommend condom use. Reviewed how to take. Written info provided. 3) STD screening: Accepted STD check for Gonorrhea and Chlamydia. 4) Follow up one year or sooner as needed Verónica Moss APRN.CAR REPOSSESSOR documented in this encounter [facility] 10-31-2022 History of Presen t illness Narrative Jes is a 27 year old who presents for an annual gynecologic exam without complaints. Menses: cycles every 28 days and 4-5 days of flow. Contraception: combined hormonal contraceptives HPV vaccine: Yes Last Pap: 09/09/2021 normal HPV: negative History of abnormal pap: No Last mammogram: never Sexually active: Yes OB History T0 L0 SAB0 IAB0 Ectopic0 Multiple0 Live Births0 Geological Specialist History LMP: 09/18/2022 (Exact Date), Having periods Age at Menarche: Age at First : Age at Menopause: Geological Specialist History Comments: Sexual Activity: Yes; Male Contraception: Pill PAST MEDICAL HISTORY Diagnosis Date NEGATIVE MEDICAL HISTORY PAST SURGICAL HISTORY Procedure Laterality Date NONE History reviewed. No pertinent family history.SOCIAL HISTORY Social History Tobacco Use Smoking status: Former Types: Cigarettes Smokeless tobacco: Never Vaping Use Vaping Use: current everyday user Substance Use Topics Alcohol use: Yes Comment: social Drug use: Never REVIEW OF SYSTEMS Abdomen: No abdominal pain, nausea, vomiting, diarrhea, or constipation. No bloating, early satiety, indigestion, or increased flatulence. Bladder: No dysuria, gross hematuria, urinary frequency, urinary urgency, or incontinence. Breast: No breast lumps, nipple d/c, overlying skin changes, redness or skin retraction. Allergies and current medication updated:Yes EXAM: BP 114/76 Ht 5' 4.5 (1.64m) Wt 204 lb (92.5kg) LMP 09/18/2022 BMI 34.49 kg/(m^2). GENERAL: pleasant, female in no apparent distress HEENT: Normocephalic, atraumatic, mucus membranes moist, and no lesions NECK: Supple, full range of motion, no adenopathy, and thyroid normal DERMATOLOGY: Normal, without lesions, non-icteric, and non-hirsute BREAST: soft, non-tender, symmetric, no dominant mass, normal nipple-areolar complex, no lymphadenopathy, and no nipple discharge CHEST: Normal inspiratory effort ABDOMEN: soft, non-tender, and no masses PELVIC: external genitalia normal, normal Bartholin's glands, urethra, [place]'s glands, no vulvar lesions, no cervical lesions, good vaginal support, physiologic discharge present, normal appearing perineal body and perianal region BIMANUAL: uterus normal size, shape and consistency, no adnexal masses, and non-tender RECTOVAGINAL: deferred. NEURO: alert and oriented x3,exam grossly non-focal EXTREMITIES: normal ASSESSMENT/PLAN: 1) Health maintenance: Pap/HPV up to date. Mammogram starting age 40. HPV vaccine: completed series 2) Contraception: combined hormonal contraceptives. Contraceptive options reviewed and information provided. 3) STD screening: Declined STD check. 4) Follow up one year or sooner as needed Kaitlin Talley MD documented in this encounter [facility] 02-09-2022 Note . MICRO - Microbiology PROCEDURE: Urine Culture [*1] SOURCE: Urine, Clean Catch BODY SITE: COLLECTED DATE/TIME: 02/07/2022 13:43 EDT RECEIVED DATE/TIME: 02/07/2022 21:04 EDT START DATE/TIME: 02/07/2022 21:04 EDT FREE TEXT SOURCE: FINAL REPORTS Final Report [] Verified Date/Time/Personnel: 02/09/2022 07:59 EDT 10,000 - 50,000 cfu/ml Multiple bacterial morphotypes present. Probable Contamination. Suggest recollection if clinically indicated. PRELIMINARY REPORTS Preliminary Report [] Verified Date/Time/Personnel: 02/08/2022 09:14 EDT Culture results pending. Performing Locations *1: This test was performed at: [facility], [address] [place] [address], [id number] , [facility] ([place]) Evaluation + Plan note No data available for this section [facility] Evaluation + Plan note Future Appointments Appointment Date:01/18/2022 08:30:00 AM Scheduled Provider:SUSY PRICE Location:[facility] Appointment Type:PC OV Follow Up [facility] Evaluation + Plan note Future Appointments Appointment Date:02/06/2023 07:30:00 AM Scheduled Provider:SUSY PRICE Location:[facility] Appointment Type:PC Wellness Annual [facility] Evaluation note Diagnosis Encounter for gynecological examination (general) (routine) without abnormal findings- Primary [facility] Diagnosis Encounter for gynecological examination (general) (routine) without abnormal findings- Primary Screen for STD (sexually transmitted disease) Screening examination for venereal disease [facility] Diagnosis Supervision of high risk due to social problems, antepartum (HCC)- Primary 7 weeks gestation of (HCC) state, incidental with uncertain dates, antepartum ([facility]) state, incidental Screen for STD (sexually transmitted disease) Screening examination for venereal disease Screening for cervical cancer Screening for malignant neoplasm of the cervix Special screening examination for human papillomavirus (HPV) BMI 39.0-39.9,adult Body Mass Index 39.0-39.9, adult [facility] Diagnosis Supervision of high risk due to social problems, antepartum (HCC)- Primary Obesity in (HCC) Obesity complicating , childbirth, or the puerperium, unspecified as to episode of care or not applicable [facility] Diagnosis Obesity in (HCC)- Primary Obesity complicating , childbirth, or the puerperium, unspecified as to episode of care or not applicable 7 weeks gestation of (HCC) state, incidental [facility] Diagnosis ASCUS with positive high risk HPV cervical- Primary Cervical high risk human papillomavirus (HPV) DNA test positive Rubella non-immune status, antepartum ([facility]) Other specified complication, antepartum documented in this encounter [facility] note* Diagnosis Encounter for anatomic survey (HCC)- Primary Encounter for anatomic survey Obesity in ([facility]) Obesity complicating , childbirth, or the puerperium, unspecified as to episode of care or not applicable 16 weeks gestation of (HCC) state, incidental [facility] Diagnosis Supervision of high risk due to social problems, antepartum ([facility])- Primary 17 weeks gestation of ([facility]) state, incidental Obesity in ([facility]) Obesity complicating , childbirth, or the puerperium, unspecified as to episode of care or not applicable Rubella non-immune status, antepartum ([facility]) Other specified complication, antepartum [facility] Diagnosis Supervision of high risk in second trimester (HCC)- Primary Unspecified high-risk 20 weeks gestation of ([facility]) state, incidental Obesity affecting in second trimester, unspecified obesity type ([facility]) ASCUS with positive high risk HPV cervical Cervical high risk human papillomavirus (HPV) DNA test positive Rubella non-immune status, antepartum ([facility]) Other specified complication, antepartum Encounter for anatomic survey ([facility]) Encounter for anatomic survey Suspected anomaly not found [facility] [facility] Diagnosis Encounter for anatomic survey (HCC)- Primary Encounter for anatomic survey 20 weeks gestation of ([facility]) state, incidental Suspected anomaly not found Other obesity affecting in second trimester ([facility]) [facility] Diagnosis Supervision of high risk in second trimester ([facility])- Primary Unspecified high-risk Obesity affecting in second trimester, unspecified obesity type ([facility]) [facility] Diagnosis ASCUS with positive high risk HPV cervical- Primary Cervical high risk human papillomavirus (HPV) DNA test positive Screening for diabetes mellitus 23 weeks gestation of ([facility]) state, incidental [facility] Diagnosis Obesity affecting in second trimester, unspecified obesity type ([facility])- Primary Depression affecting ([facility]) [facility] No data available for this section [facility] Progress note No data available for this section [facility] Summary Purpose Family History No Family History Records FoundNo Family History Records Found No data available for this section No Family History Records FoundNo Family History Records Found Advance Directives No Advanced Directives Records FoundNo Advanced Directives Records FoundNo Advanced Directives Records FoundNo Advanced Directives Records Found Additional Source Comments INFORMATION SOURCE (unrecogn ized section and content) DATE CREATED AUTHOR 12/14/2017 [facility] DATE CREATED AUTHOR AUTHOR'S ORGANIZ ATION 02/14/2022 [facility] ([place]) DATE CREATED AUTHOR AUTHOR'S ORGANIZ ATION 06/19/2024 [facility] DATE CREATED AUTHOR AUTHOR'S ORGANIZ ATION 05/06/2025 [facility] Care Team (unrecognized sect ion and content) Gem Setter Relationship Specialty Start Date End Date Susy Price CNP [address] [place] [address] PCP - General Family Medicine 10/20/24 Gem Setter Relationship Specialty Start Date End Date Susy Price CNP [address] [place] [address] PCP - General Family Medicine 10/20/24 Gem Setter Relationship Specialty Start Date End Date Susy Price CNP [address] [place] [address] PCP - General Family Medicine 10/20/24 Gem Setter Relationship Specialty Start Date End Date Susy Price CNP [address] [place] [address] PCP - General Family Medicine 10/20/24 Gem Setter Relationship Specialty Start Date End Date Susy Price CNP [address] [place] [address] PCP - General Family Medicine 10/20/24 Gem Setter Relationship Specialty Start Date End Date Susy Price CNP [address] [place] [address] PCP - General Family Medicine 10/20/24 Gem Setter Relationship Specialty Start Date End Date Susy Price CNP [address] [place] [address] PCP - General Family Medicine 10/20/24 Gem Setter Relationship Specialty Start Date End Date Susy Price CNP [address] [place] [address] PCP - General Family Medicine 10/20/24 Gem Setter Relationship Specialty Start Date End Date Susy Price CNP [address] [place] [address] PCP - General Family Medicine 10/20/24 Gem Setter Relationship Specialty Start Date End Date Susy Price CNP [address] [place] [address] PCP - General Family Medicine 10/20/24 Gem Setter Relationship Specialty Start Date End Date Susy Price CNP [address] [place] [address] PCP - General Family Medicine 10/20/24 Gem Setter Relationship Specialty Start Date End Date Susy Price CNP [address] [place] [address] PCP - General Family Medicine 10/20/24 Gem Setter Relationship Specialty Start Date End Date Albert Susy Farrell CNP [address] [place] [phone] PCP - General Family Medicine 10/20/24 Care Team (unrecognized sect ion and content) Care Team Personnel Name: ALBERT SUSYBO Farrell APRN-DEBBI Position: P4 Advanced Practice Nurse Med Service: Employed Provider Member Role: Primary Care Physician Address: Address: [address] [place] [address] [facility] [place] [address] Care Team Related Persons Name: HA FRANKS Address: Home [address], [place] [id number] Source Comments (unrecognize d section and content) In the event this informatio n is protected by the Federal Confidentiality of Alcohol and Drug Abuse Patient Records regulations: The Federal rules restrict any use of the information to criminally investigate or prosecute any alcohol or drug abuse patient.[facility] the event this information is protected by the Federal Confidentiality of Alcohol and Drug Abuse Patient Records regulations: The Federal rules restrict any use of the information to criminally investigate or prosecute any alcohol or drug abuse patient.[facility] the event this information is protected by the Federal Confidentiality of Alcohol and Drug Abuse Patient Records regulations: The Federal rules restrict any use of the information to criminally investigate or prosecute any alcohol or drug abuse patient.[facility] the event this information is protected by the Federal Confidentiality of Alcohol and Drug Abuse Patient Records regulations: The Federal rules restrict any use of the information to criminally investigate or prosecute any alcohol or drug abuse patient.[facility] Hospital[facility] the event this information is protected by the Federal Confidentiality of Alcohol and Drug Abuse Patient Records regulations: The Federal rules restrict any use of the information to criminally investigate or prosecute any alcohol or drug abuse patient.[facility] Hospital[facility] the event this information is protected by the Federal Confidentiality of Alcohol and Drug Abuse Patient Records regulations: The Federal rules restrict any use of the information to criminally investigate or prosecute any alcohol or drug abuse patient.[facility] Hospital[facility] the event this information is protected by the Federal Confidentiality of Alcohol and Drug Abuse Patient Records regulations: The Federal rules restrict any use of the information to criminally investigate or prosecute any alcohol or drug abuse patient.[facility] Hospital[facility] the event this information is protected by the Federal Confidentiality of Alcohol and Drug Abuse Patient Records regulations: The Federal rules restrict any use of the information to criminally investigate or prosecute any alcohol or drug abuse patient.[facility] Hospital[facility] the event this information is protected by the Federal Confidentiality of Alcohol and Drug Abuse Patient Records regulations: The Federal rules restrict any use of the information to criminally investigate or prosecute any alcohol or drug abuse patient.[facility] Hospital[facility] the event this information is protected by the Federal Confidentiality of Alcohol and Drug Abuse Patient Records regulations: The Federal rules restrict any use of the information to criminally investigate or prosecute any alcohol or drug abuse patient.[facility] Hospital[facility] the event this information is protected by the Federal Confidentiality of Alcohol and Drug Abuse Patient Records regulations: The Federal rules restrict any use of the information to criminally investigate or prosecute any alcohol or drug abuse patient.[facility] Hospital[facility] the event this information is protected by the Federal Confidentiality of Alcohol and Drug Abuse Patient Records regulations: The Federal rules restrict any use of the information to criminally investigate or prosecute any alcohol or drug abuse patient.[facility] Hospital[facility] the event this information is protected by the Federal Confidentiality of Alcohol and Drug Abuse Patient Records regulations: The Federal rules restrict any use of the information to criminally investigate or prosecute any alcohol or drug abuse patient.[facility] Hospital[facility] the event this information is protected by the Federal Confidentiality of Alcohol and Drug Abuse Patient Records regulations: The Federal rules restrict any use of the information to criminally investigate or prosecute any alcohol or drug abuse patient.[facility] Hospital[facility] the event this information is protected by the Federal Confidentiality of Alcohol and Drug Abuse Patient Records regulations: The Federal rules restrict any use of the information to criminally investigate or prosecute any alcohol or drug abuse patient.[facility] HospitalIn the event this information is protected by the Federal Confidentiality of Alcohol and Drug Abuse Patient Records regulations: The Federal rules restrict any use of the information to criminally investigate or prosecute any alcohol or drug abuse patient.[facility] Hospital[facility] the event this information is protected by the Federal Confidentiality of Alcohol and Drug Abuse Patient Records regulations: The Federal rules restrict any use of the information to criminally investigate or prosecute any alcohol or drug abuse patient.[facility] Reason for Visit (unrecogniz ed section and content) Reason Comments Yearly Exam Reason Comments Well Woman Reason Comments New Fiest OB Reason Comments Abnormal Pap Reason Comments OB Spotting Reason Comments US Specialty Diagnoses / Procedures Referred By Contgautam t Referred To Contact [facility] Diagnoses 7 weeks gestation of (HCC) Procedures OBSTETRIC ULTRASOUND WHI US PREG UTERUS AFTER 1ST TRIMEST GESTATION Mary Kate Peralta, [employer] REPOSSESS[employer] [address] [place] [address] Phone: tel: fax: [address] [phone] Referral ID Status Reason Start Date Expiration Date V isits Requested Visits Authorized [id number] Closed Auto-Generate d Referral 11/03/2024 11/03/2025 1 1 Reason Onset Date Comments Results 11/04/2024 Reason Comments US Specialty Diagnoses / Procedures Referred By Contac t Referred To Contact [facility] Diagnoses Obesity in (HCC) Procedures OBSTETRIC ULTRASOUND WHI US PREG UTERUS AFTER 1ST TRIMEST GESTATION August, MD [address] [place] [address] Phone: tel: fax: [address] [phone] Referral ID Status Reason Start Date Expiration Date V isits Requested Visits Authorized [id number] Closed Auto-Generate d Referral 12/10/2024 12/10/2025 1 1 Reason Onset Date Comments Care 01/12/2025 Reason Onset Date Comments Care 02/02/2025 US Specialty Diagnoses / Procedures Referred By Contac t Referred To Contact [facility] Diagnoses 7 weeks gestation of (HCC) Procedures OBSTETRIC ULTRASOUND WHI US PREG UTERUS AFTER 1ST TRIMEST GESTATION Mary Kate Peralta, [employer] REPOSSESSOR [address] [place] [address] Phone: tel: fax: [address] [phone] Referral ID Status Reason Start Date Expiration Date V isits Requested Visits Authorized [id number] Closed Auto-Generate d Referral 11/03/2024 11/03/2025 1 1 Reason Comments Results Reason Comments Colposcopy Specialty Diagnoses / Procedures Referred By Contac t Referred To Contact [facility] Diagnoses ASCUS with positive high risk HPV cervical Procedures COLPOSCOPY COLPOSCOPY CERVIX BX CERVIX & ENDOCRV CURRETAGE Mary Kate Peralta, [employer] REPOSSESSOR [address] [place] [address] Phone: tel: fax: [facility] [address] [place] [address] Referral ID Status Reason Start Date Expiration Date V isits Requested Visits Authorized [id number] Closed Auto-Generate d Referral 11/20/2024 11/20/2025 1 1 Reason Onset Date Comments Care 03/06/2025 FOR RECORDS PERTAINING TO PATIENTS WHO ARE OR HAVE BEEN ENROLLED IN A CHEMICAL DEPENDENCY/SUBSTANCEABUSE PROGRAM, SOME INFORMATION MAY BE OMITTED. This clinical summary was aggregated from multiple sources. Caution should be exercised in using it in the provision of clinical care. This summary normalizes information from multiple sources, and as a consequence, information in this document may materially change the coding, format and clinical context of patient data. In addition, data may be omitted in some cases. CLINICAL DECISIONS SHOULD BE BASED ON THE PRIMARY CLINICAL RECORDS. [employer] [facility]. provides no warranty or guarantee of the accuracy or completeness of information in this document.
[2025-06-14 19:35] VITALS: BP 143/91; PULSE 107; RESP 16; TEMP 36.6
[2025-06-14] MEDS: Lactated Ringers 1,000 ML 50 ML IV (19:40)
--- OUTSIDE RECORDS SUMMARY | 2025-06-14 19:46 | XMS RPT_ITS | CCD ---
Author Organization [facility] Inform ion [facility] Care Team Providers Care Asphalt Paver Operator Name Role Phone LowellBrian blanchard Unavailable Unavailable Asia Jason Unavailable Unavailable Maryjane Jasonn Unavailable Unavailable ALBERT HEADEND TECHNICIAN-CULINARY WORKER, SUSY S Primary Care Physicia n Unavailable Primary Care Provider Unavailabl e Unavailable Primary Care Provider Unavailabl e ALBERT HEADEND TECHNICIAN-CULINARY WORKER, SUSY S Primary Care Unava ilable IVAN HEADEND TECHNICIAN-CULINARY WORKERSOFIA Attending Unavailab good Albert CULINARY WORKER, Susy S Primary Care Provider [phone] FABIAN, MARY KATE Referring Unavailable ALBERT, SUSY [...] Clavulanate; Translations: [amoxicillin-cla vulanate] Drug Allergy vomiting [facility] (18 sources) Amoxicillin; Translations: [AMOXICILLIN] Drug Allergy 11-26-2018 GI Upset, Vomiting [facility] Medications Current Medications Medication Drug Class(es) [...] tab(s), 0 Refill(s), 06/18/21 14:30:00 EST, Pharmacy: [facility], 160, cm, 06/09/21 8:22:00 EST, [...] BID, # 180 tab(s), 3 Refill(s), Pharmacy: [facility], 163, cm, 02/02/22 7:36:00 EDT, [...] 0 Refill(s), 06/20/24 12:07:00 PM EST, Pharmacy: [facility], UTI (urinary tract infection), 163, [...] tablet 11 09/06/2021 10/31/2022 Discontinued Start: 07-17-2019 Hickory-Linyah 0. 25 mg-35 mcg oral tablet See Instructions, # 112 tab(s), Refill #: 3 Total Refills: 3, take 1 tablet by mouth once daily, DAMIAN URENA-195 [facility] Start Date: 07/17/19 Status: Ordered Comment on [...] QID, # 40 tab(s), 11 Refill(s), Pharmacy: [facility], 160, cm, 10/25/20 14:34:00 EDT, [...] Active Comment on above: Take by mouth. Hickory-Linyah 0.25 mg-35 mcg oral tablet (2 sources) Start: 07-17-2019 Hickory-Linyah 0.25 mg-35 mcg oral tablet See Instructions, # 112 tab(s), Refill #: 3 Total Refills: 3, take 1 tablet by mouth once daily, DAMIAN URENA-1954 [facility] Start Date: 07/17/19 Status: Ordered Multivitamin preparation [...] End: 06-21-2021 prednisone 10mg tab (TAPER) Taper 12-26-19-30-20-10 x 1 day, Oral, qAM, # 21 tab(s), 0 Refill(s), Pharmacy: [facility], 160, cm, 06/09/21 8:22:00 EST, [...] day(s), # 120 mL, 0 Refill(s), Pharmacy: [facility], Cough, 160, cm, 06/09/21 8:22:00 [...] day(s), # 14 tab(s), 0 Refill(s), Pharmacy: [facility], 163, cm, 06/13/24 11:39:00 EST, [...] day(s), # 10 tab(s), 0 Refill(s), Pharmacy: [facility], 163, cm, 02/07/22 10:26:00 EDT, [...] [Supervision of high risk in second trimester ([facility])] Onset: 04-03-2025 Episodic Other complications of (1 source) Other mental disorders complicating , unspecified trimester; Translations: [Depression affecting ([facility])] Onset: 03-06-2025 Episodic Other eye disorders (1 source) Disorder of eye 01-24-2023 Episodic Other gastrointestinal disorders (5 sources) Irritable bowel syndrome 08-04-2019 Chronic Other nutritional; endocrine; and metabolic disorders (1 source) Morbid (severe) obesity due to excess calories; Translations: [Severe obesity due to excess calories affecting , antepartum ([facility])] Onset: 05-01-2025 Chronic Other nutritional; endocrine; and metabolic disorders (1 source) Body mass index (BMI) 40.0-44.9, adult; Translations: [BMI 40.0-44.9, adult ([facility])] Onset: 05-01-2025 Chronic Other nutritional; endocrine; and [...] antepartum (HCC); Translations: [Rubella non-immune status, antepartum ([facility])] Onset: 12-11-2024 Urinary tract infections (1 source) [...] Unsp challenge [Mass/Vol] 129 mg/dL Normal 74-179 [facility] Comment on above: Order Comment: Speci men Type: BLOOD SPECIMENOrdering Facility: [facility] Address: [address] [place] [address] Result Comment: [place] [employer] (Ashlyn/Parth) guidelines state gestational diabetes mellitus is present when 2 or more of the plasma glucose concentrations meet or exceed the following levels: fastin mg/dl, 1 hr: 180 mg/dl, 2 hr: 155 mg/dl, and 3 hr: 140 mg/dl. Performed By: #### G TGST1 ####[facility] FANNY NOONANJOSH [id number] [place] [address] [place] GLUCOSE GESTATIONAL, 2 HOURo n 04-08-2025 Glucose 2 Hr post Unsp challenge [Mass/Vol] 149 mg/dL Normal 74-154 [facility] Comment on above: Order Comment: Daron miramontes Type: BLOOD SPECIMENOrdering Facility: [facility] Address: [address] [place] [address] Result Comment: [facility] Congress of Obstetricians and Gynecologists (Goldberg/Boomstan) guidelines state gestational diabetes mellitus is present when 2 or more of the plasma glucose concentrations meet or exceed the following levels: fastin mg/dl, 1 hr: 180 mg/dl, 2 hr: 155 mg/dl, and 3 hr: 140 mg/dl. Performed By: #### G TGST2 ####[facility] [id number] [place] [address] [place] GLUCOSE GESTATIONAL, 3 HOURo n 04-08-2025 Glucose 3 Hr post Unsp challenge [Mass/Vol] 138 mg/dL Normal 74-139 [facility] Comment on above: Order Comment: Daron miramontes Type: BLOOD SPECIMENOrdering Facility: [facility] Address: [address] [place] [address] Result Comment: [facility] Congress of Obstetricians and Gynecologists ([facility]) guidelines state gestational diabetes mellitus is present when 2 or more of the plasma glucose concentrations meet or exceed the following levels: fastin mg/dl, 1 hr: 180 mg/dl, 2 hr: 155 mg/dl, and 3 hr: 140 mg/dl. Performed By: #### G TGST3 ####[facility] [id number] [place] [address] [place] GLUCOSE GESTATIONAL, FASTING on 04-08-2025 Glucose post fast [Mass/Vol] 86 mg/dL Normal 74-94 [facility] Comment on above: Order Comment: Daron miramontes Type: BLOOD SPECIMENOrdering Facility: [facility] Address: [address] [place] [address] Result Comment: [facility] Congress of Obstetricians and Gynecologists (Goldberg/Coustan) guidelines state gestational diabetes mellitus is present when 2 or more of the plasma glucose concentrations meet or exceed the following levels: fastin mg/dl, 1 hr: 180 mg/dl, 2 hr: 155 mg/dl, and 3 hr: 140 mg/dl. Performed By: #### G [facility] ####[facility] FANNY GOFF [id number] [place] [id number] [place] Mira 04-07-2025 CNPN Telephone (OBGYWM) JES FRANKS ([id number]) 1995 F Date Time Provider Department 04/07/25 [...] felt so bad. B: 29w1d. 1 Hr Nwe=256. 3 hr gtt scheduled 04/08/25. A: Pt [...] Status:Closed by DAYLIN BOUCHER on 04/07/25 Normal [facility] CBC panel Auto (Bld)on 04-03 Erythrocyte distribution width (RBC) [Ratio] 13.4 % Normal 11.5-15.0 [facility] Comment on above: Order Comment: Speci men Type: BLOOD SPECIMENOrdering Facility: [facility] Address: [address] [place] [address] Performed By: #### 5 8410-2 ####[facility] [id number] [place] [address] [place] Hematocrit (Bld) [Volume fraction] 35.1 % Low 36.0-46.0 [facility] Comment on above: Order Comment: Speci men Type: BLOOD SPECIMENOrdering Facility: [facility] Address: [address] [place] [address] Performed By: #### 5 8410-2 ####[facility] [id number] [place] [address] [place] Hemoglobin (Bld) [Mass/Vol] 11.8 g/dL Normal 11.5-15.5 [facility] Comment on above: Order Comment: Speci men Type: BLOOD SPECIMENOrdering Facility: [facility] Address: [address] [place] [address] Performed By: #### 5 8410-2 ####[facility] [id number] [place] [address] [place] MCH (RBC) [Entitic mass] 29.1 pg Normal 26.0-34.0 [facility] Comment on above: Order Comment: Speci men Type: BLOOD SPECIMENOrdering Facility: [facility] Address: [address] [place] [address] Performed By: #### 5 8410-2 ####[facility] [id number] [place] [address] [place] MCHC (RBC) [Mass/Vol] 33.6 g/dL Normal 30.5-36.0 [facility] Comment on above: Order Comment: Speci men Type: BLOOD SPECIMENOrdering Facility: [facility] Address: [address] [place] [address] Performed By: #### 5 8410-2 ####[facility] [id number] [place] [address] [place] MCV (RBC) [Entitic vol] 86.7 fL Normal 80.0-100.0 [facility] Comment on above: Order Comment: Speci men Type: BLOOD SPECIMENOrdering Facility: [facility] Address: [address] [place] [address] Performed By: #### 5 8410-2 ####[facility] [id number] [place] [address] [place] Nucleated RBC (Bld) [#/Vol] 10*3/uL Normal <0.01 [facility] Comment on above: Order Comment: Speci men Type: BLOOD SPECIMENOrdering Facility: [facility] Address: [address] [place] [address] Performed By: #### 5 8410-2 ####[facility] [id number] [place] [address] [place] Platelet mean volume (Bld) [Entitic vol] 9.7 fL Normal 9.0-12.7 [facility] Comment on above: Order Comment: Speci men Type: BLOOD SPECIMENOrdering Facility: [facility] Address: [address] [place] [address] Performed By: #### 5 8410-2 ####[facility] [id number] [place] [address] [place] Platelets (Bld) [#/Vol] 394 10*3/uL Normal 150-400 [facility] Comment on above: Order Comment: Speci men Type: BLOOD SPECIMENOrdering Facility: [facility] Address: [address] [place] [address] Performed By: #### 5 8410-2 ####[facility] [id number] [place] [address] [place] RBC (Bld) [#/Vol] 4.05 10*6/uL Normal 3.90-5.20 [facility] Comment on above: Order Comment: Speci men Type: BLOOD SPECIMENOrdering Facility: [facility] Address: [address] [place] [address] Performed By: #### 5 8410-2 ####[facility] [id number] [place] [address] [place] WBC (Bld) [#/Vol] 10.72 10*3/uL Normal 3.70-11.00 [facility] Comment on above: Order Comment: Speci men Type: BLOOD SPECIMENOrdering Facility: [facility] Address: [address] [place] [address] Performed By: #### 5 8410-2 ####[facility] [id number] [place] [address] [place] Mira 04-03-2025 DEBBIN Telephone (OBGYWM) JES FRANKS ([id number]) 1995 F Date Time Provider Department 04/03/25 AMRITA SULLIVAN During your visit today, we recorded the following information about you: Amrita Sullivan MD 04/03/2025 5:07 PM Signed See result note 3 hr GTT ordered Viry Hancock RN 04/03/2025 5:11 PM Signed [employer] message sent to Pt. Viry Hancock RN Allergies As of Date: 04/03/2025 Noted Allergy Reaction AMOXICILLIN 11/26/2018 8 - GI Upset 11 - Vomiting Date Reviewed: 04/03/2025 Reviewed by: Katlin Burns MD - Fully Assessed Reason for Visit: Orders [681] Primary Visit Diagnosis:28 weeks gestation of (HCC) [Z3A.28] Other Visit Diagnosis:Abnormal glucose complicating ([facility]) [O99.810] Order(s):GEST GLUC RICK, 3-HR, 100 GM, FASTING [SQGTGST3] Order #: [id number] FUTURE Prescriptions as of 04/03/2025 - FLUoxetine [...] affecting (HCC) [O99.340, *03/06/2025 Abnormal glucose complicating ([facility]) [*04/03/2025 Encounter Status:Closed by AMRITA SULLIVAN on 04/03/25 Normal [facility] GESTATIONAL GLUCOSE SCREEN, 1-HOUR, 50 GRAM, NON-FASTINGon 04-03-2025 Glucose [Mass/Vol] 177 mg/dL High 74-134 [facility] Comment on above: Order Comment: Speci men Type: BLOOD SPECIMENOrdering Facility: [facility] Address: [address] [place] [address] Result Comment: [place] Congress of Obstetricians [employer] Gynecologists (Ashlyn/Parth) guidelines state a gestational diabetes mellitus positive screen is made, in women not previously diagnosed with overt diabetes, when the 1 hr plasma glucose level is equal to or above 140 mg/dL. The [facility] Intake Assessor and [facility] [place] recommends a 135 mg/dL cutoff. Performed By: #### G LTGST ####[facility] [id number] [place] [address] [place] Reagin and Treponema pallidu m IgG and IgM [Interp]on 04-03-2025 T. pallidum IgG+IgM IA Ql (S) Non-Reactive Normal Nonreactive [facility] Comment on above: Order Comment: Speci men Type: BLOOD SPECIMENOrdering Facility: [facility] Address: [address] [place] [address] Performed By: #### 7 3752-8 ####[facility] [id number] [place] [address] [place] Reagin+T pallidum IgG+IgM Se rPl-Impon 04-03-2025 Reagin and Treponema pallidum IgG and IgM [Interp] Cannot exclude recent Treponemal infection if specimen collected within 7-10 days after appearance of suspect lesions or 2-3 weeks after an exposure. Clinical correlation is required. 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 Andre is a 29 [...] was adequate. (more content not included)... [facility] C[facility] Tele[facility] (OBGYWM) JES FRANKS ([id number]) 1995 F Date Time Provider Department 02/03/25 [...] n of high risk in second trimester ([facility]) [O09.92] Other Visit Diagnosis:Obesity affecting in second trimester, unspecified obesity type ([facility]) [O99.212] Prescriptions as of 02/03/2025 - PNV [...] Status:Closed by RUBY ANDRE on 02/03/25 Normal [facility] Examination level ultrasound on 02-03-2025 Indication Detailed [...] 12 oz EFW by: Hadlock (HC-AC-FL) Extended Meat Processor 6.1 mm CM 5.5 mm 66% Nicolaides [...] normal LVOT view: normal 3-vessel view: normal 2-jlkocl-nchajjb view: normal Heart / Thorax Situs: situs [...] Read By: Bhavana Love M.D. MATERNAL MEDICINE [facility] Examination level ultrasound on 02-02-2025 Radiology Study observation (narrative) [facility] JES FRANKS ([id number]) 1995 F Date Time Provider Department 01/15/25 [place] WCTRMN During your visit today, we recorded the following information about you: Dylan Zafar 01/15/2025 1:35 PM Signed APC 2 Patient reviewed [facility] regarding [place], appt scheduled via [facility]. [facility] Cervical [...] Status:Closed by DYLAN ZAFAR on 01/15/25 Normal [facility] Examination level ultrasound on 01-08-2025 Indication Early [...] 5 oz EFW by: Hadlock (HC-AC-FL) Extended Meat Processor 6.7 mm CM 3.1 mm 18% Nicolaides Extremities / Bony Struc FL / HC 0.15 6% Hadlock Other Structures FHR 153 bpm Anatomy Cranium: normal Lateral ventricles: normal Choroid plexus: normal Midline falx: normal Cerebellum: normal Cisterna magna: normal Lips: normal 4-chamber view: normal RVOT view: normal LVOT view: normal 3-vessel view: suboptimally visualized 9-hdujlo-jkpvooe view: normal Heart / Thorax Diaphragm: normal [...] Read By: Michael Dwyer D.O. MATERNAL MEDICINE [facility] Radiology Study observation (narrative) [facility] Mira 12-22-2024 CNPN Telephone (OBGYWM) JES FRANKS ([id number]) 1995 F Date Time Provider Department 12/22/24 [...] Status:Closed by SERGE STROUD on 12/24/24 Normal [facility] Examination level ultrasound on 12-10-2024 Indication First trimester anatomic survey Maternal obesity, BMI >35 Impression The patient is referred for a first trimester anatomy scan including nuchal translucency measurement as clinically indicated. - Single, live, intrauterine . - [place] rump length measurement is consistent with the [...] view: normal 4-chamber view with color: normal 1-xqnvpn-uteswho view: suboptimal Abdominal cord insertion: normal Stomach: [...] ovary Vol 3.1 cm Performed By: Ruby Salagdo, BHUPINDER, RVT Read By: Geni Sharp M.D. MATERNAL MEDICINE [facility] CBC W Auto Diff Bldon 2024 Hematocrit (Bld) [Volume fraction] 39.4 % Normal 36.0-46.0 [facility] Comment on above: Order Comment: Speci men Type: BLOOD SPECIMENOrdering Facility: [facility] Address: [address] [place] [address] Performed By: #### 5 7021-8 ####[facility] [id number] [address] Performed By: #### L [id number] ####[facility] LABCLIA [id number] [address] [place] CBC W Auto Differential pane l (Bld)on 12-09-2024 Basophils (Bld) [#/Vol] 0.06 10*3/uL Normal <0.11 [facility] Comment on above: Order Comment: Speci men Type: BLOOD SPECIMENOrdering Facility: [facility] Address: [address] [place] [address] Performed By: #### 5 7021-8 ####[facility] LABCLIA [id number] [address] [place] Basophils/100 WBC (Bld) 0.6 % Normal [facility] Comment on above: Order Comment: Speci men Type: BLOOD SPECIMENOrdering Facility: [facility] Address: [address] [place] [address] Performed By: #### 5 7021-8 ####[facility] [id number] [address] [place] Differential cell count method Nom (Bld) Auto Normal [facility] Comment on above: Order Comment: Speci men Type: BLOOD SPECIMENOrdering Facility: [facility] Address: [address] [place] [address] Performed By: #### 5 7021-8 ####[facility] LABCLIA [id number] [place] [address] [place] Eosinophils (Bld) [#/Vol] 0.16 10*3/uL Normal <0.46 [facility] Comment on above: Order Comment: Speci men Type: BLOOD SPECIMENOrdering Facility: [facility] Address: [address] [place] [address] Performed By: #### 5 7021-8 ####[facility] LABCLIA [id number] [place] [address] [place] Eosinophils/100 WBC (Bld) 1.6 % Normal [facility] Comment on above: Order Comment: Speci men Type: BLOOD SPECIMENOrdering Facility: [facility] Address: [address] [place] [address] Performed By: #### 5 7021-8 ####[facility] [id number] [place] [address] [place] Erythrocyte distribution width (RBC) [Ratio] 13.2 % Normal 11.5-15.0 [facility] Comment on above: Order Comment: Speci men Type: BLOOD SPECIMENOrdering Facility: [facility] Address: [address] [place] [address] Performed By: #### 5 7021-8 ####[facility] [id number] [place] [address] [place] Hemoglobin (Bld) [Mass/Vol] 13.1 g/dL Normal 11.5-15.5 [facility] Comment on above: Order Comment: Speci men Type: BLOOD SPECIMENOrdering Facility: [facility] Address: [address] [place] [address] Performed By: #### 5 7021-8 ####[facility] LABCLIA [id number] [place] [address] [place] Immature granulocytes (Bld) [#/Vol] 10*3/uL Normal <0.10 [facility] Comment on above: Order Comment: Speci men Type: BLOOD SPECIMENOrdering Facility: [facility] Address: [address] [place] [address] Performed By: #### 5 7021-8 ####[facility] LABCLIA [id number] [place] [address] [place] Immature granulocytes/100 WBC (Bld) 0.2 % Normal [facility] Comment on above: Order Comment: Speci men Type: BLOOD SPECIMENOrdering Facility: [facility] Address: [address] [place] [address] Performed By: #### 5 7021-8 ####[facility] LABCLIA [id number] [place] [address] [place] Lymphocytes (Bld) [#/Vol] 3.02 10*3/uL Normal 1.00-4.00 [facility] Comment on above: Order Comment: Speci men Type: BLOOD SPECIMENOrdering Facility: [facility] Address: [address] [place] [address] Performed By: #### 5 7021-8 ####[facility] LABCLIA [id number] [place] [address] [place] Lymphocytes/100 WBC (Bld) 30.3 % Normal [facility] Comment on above: Order Comment: Speci men Type: BLOOD SPECIMENOrdering Facility: [facility] Address: [address] [place] [address] Performed By: #### 5 7021-8 ####[facility] LABCLIA [id number] [place] [id number] [place] MCH (RBC) [Entitic mass] 29.7 pg Normal 26.0-34.0 [facility] Comment on above: Order Comment: Speci men Type: BLOOD SPECIMENOrdering Facility: [facility] Address: [address] [place] [address] Performed By: #### 5 7021-8 ####[facility] LABCLIA [id number] [place] [address] [place] MCHC (RBC) [Mass/Vol] 33.2 g/dL Normal 30.5-36.0 [facility] Comment on above: Order Comment: Speci men Type: BLOOD SPECIMENOrdering Facility: [facility] Address: [address] [place] [address] Performed By: #### 5 7021-8 ####[facility] LABCLIA [id number] [place] [address] [place] MCV (RBC) [Entitic vol] 89.3 fL Normal 80.0-100.0 [facility] Comment on above: Order Comment: Speci men Type: BLOOD SPECIMENOrdering Facility: [facility] Address: [address] [place] [address] Performed By: #### 5 7021-8 ####[facility] [id number] [place] [address] [place] Monocytes (Bld) [#/Vol] 0.70 10*3/uL Normal <0.87 [facility] Comment on above: Order Comment: Speci men Type: BLOOD SPECIMENOrdering Facility: [facility] Address: [address] [place] [address] Performed By: #### 5 7021-8 ####[facility] LABCLIA [id number] [address] [place] Monocytes/100 WBC (Bld) 7.0 % Normal [facility] Comment on above: Order Comment: Speci men Type: BLOOD SPECIMENOrdering Facility: [facility] [facility] Address: [address] [place] [address] Performed By: #### 5 7021-8 ####[facility] LABCLIA [id number] [place] [address] [place] Neutrophils (Bld) [#/Vol] 6.02 10*3/uL Normal 1.45-7.50 [facility] Comment on above: Order Comment: Speci men Type: BLOOD SPECIMENOrdering Facility: [facility] Address: [address] [place] [address] Performed By: #### 5 7021-8 ####[facility] LABCLIA [id number] [place] [address] [place] Neutrophils/100 WBC (Bld) 60.3 % Normal [facility] Comment on above: Order Comment: Speci men Type: BLOOD SPECIMENOrdering Facility: [facility] Address: [address] [place] [address] Performed By: #### 5 7021-8 ####[facility] LABCLIA [id number] [place] [address] [place] Nucleated RBC (Bld) [#/Vol] 10*3/uL Normal <0.01 [facility] Comment on above: Order Comment: Speci men Type: BLOOD SPECIMENOrdering Facility: [facility] Address: [address] [place] [address] Performed By: #### 5 7021-8 ####[facility] LABCLIA [id number] [facility] [address], [facility] [place] Nucleated RBC/100 WBC (Bld) [Ratio] 0.0 /100 WBC Normal [facility] Comment on above: Order Comment: Speci men Type: BLOOD SPECIMENOrdering Facility: [facility] Address: [address] [place] [address] Performed By: #### 5 7021-8 ####[facility] LABCLIA [id number] [place] [id number] [place] Platelet mean volume (Bld) [Entitic vol] 10.0 fL Normal 9.0-12.7 [facility] Comment on above: Order Comment: Speci men Type: BLOOD SPECIMENOrdering Facility: [facility] Address: [address] [place] [address] Performed By: #### 5 7021-8 ####[facility] LABIA [id number] [place] [address] [place] Platelets (Bld) [#/Vol] 375 10*3/uL Normal 150-400 [facility] Comment on above: Order Comment: Speci men Type: BLOOD SPECIMENOrdering Facility: [facility] Address: [address] [place] [address] Performed By: #### 5 7021-8 ####[facility] LABIA [id number] [place] [address] [place] RBC (Bld) [#/Vol] 4.41 10*6/uL Normal 3.90-5.20 [facility] Comment on above: Order Comment: Speci men Type: BLOOD SPECIMENOrdering Facility: [facility] Address: [address] [place] [address] Performed By: #### 5 7021-8 ####[facility] [id number] [place] [address] [place] WBC (Bld) [#/Vol] 9.98 10*3/uL Normal 3.70-11.00 [facility] Comment on above: Order Comment: Speci men Type: BLOOD SPECIMENOrdering Facility: [facility] Address: [address] [place] [address] Performed By: #### 5 7021-8 ####[facility] LABIA [id number] [place] [id number] [place] Examination level ultrasound on 12-09-2024 Radiology Study observation (narrative) [facility] HBV surface Ag Ser Qlon 11-23 HBV surface Ag Ql (S) Negative Normal Negative [facility] Comment on above: Order Comment: Speci men Type: BLOOD SPECIMENOrdering Facility: [facility] Address: [address] [place] [address] Performed By: #### 3 1201-7, 02226-2, 5195-3 ####[facility] LABCLIA [id number] [place] [address] [place] HCV Ab Ser Qlon 12-09-2024 HCV Ab Ql (S) Negative Normal Negative [facility] Comment on above: Order Comment: Speci men Type: BLOOD SPECIMENOrdering Facility: [facility] Address: [address] [place] [address] Result Comment: The result suggests no evidence of infection with Hepatitis C virus. Should recent infection be suspected, repeat testing may be considered 4-6 weeks after this draw. Performed By: #### 1 6128-1 ####[facility] LABCLIA [id number] [place] [address] [place] HGB ELECTROPHORESIS FOR EVAL (LAB ORDER)on 12-09-2024 Hemoglobin A (Bld) [Mass fraction] 97.5 % Normal 96.2-98.0 [facility] Comment on above: Order Comment: Speci men Type: BLOOD SPECIMENOrdering Facility: [facility] Address: [address] [place] [address] Performed By: #### H BENNY [id number] ####[facility] LABCLIA [id number] [place] [address] [place] Hemoglobin A2 (Bld) [Mass fraction] 2.5 % Normal 2.0-3.1 [facility] Comment on above: Order Comment: Speci men Type: BLOOD SPECIMENOrdering Facility: [facility] Address: [address] [place] [address] Performed By: #### H BENNY, [id number] ####[facility] LABCLIA [id number] [place] [address] [place] Hemoglobin Unsp Elph (Bld) [Mass fraction] No abnormal hemoglobin identified. Normal No abnormal hemoglobin identified. [facility] Comment on above: Order Comment: Speci men Type: BLOOD SPECIMENOrdering Facility: [facility] Address: [address] [place] [address] Performed By: #### H BENNY, [id number] ####[facility] LABCLIA [id number] [place] [address] [place] HGB EVALUATION CASCADE INTER Crow 12-09-2024 Hemoglobin pattern (Bld) [Interp] Reviewed by Ankur Stelring MD Normal [facility] Comment on above: Order Comment: Speci men Type: BLOOD SPECIMENOrdering Facility: [facility] Address: [address] [place] [address] Performed By: #### H BENNY [id number] ####[facility] LABIA [id number] [place] [address] [place] INTERPRETATION (HGB EVAL) Normal [facility] Comment on above: Order Comment: Speci men Type: BLOOD SPECIMENOrdering Facility: [facility] Address: [address] [place] [address] Result Comment: Hemo globins were analyzed by capillary electrophoresis and CBC red cell parameters were reviewed. No abnormal hemoglobin is identified. There is a normal hemoglobin capillary electrophoresis pattern. Performed By: #### H BENNY, [id number] ####[facility] LABCLIA [id number] [place] [address] [place] HIV 1+2 Ab IA Qlon 5 HIV 1 and 2 Ab IA.rapid Nom (S/P/Bld) Normal [facility] Comment on above: Order Comment: Speci men Type: BLOOD SPECIMENOrdering Facility: [facility] Address: [address] [place] [address] Result Comment: Test not indicated. Performed By: #### 3 1201-7, 94975-5, 5195-3 ####[facility] [id number] [place] [id number] [place] HIV 1+2 Ab+HIV1 p24 Ag IA Ql Non-Reactive Normal Nonreactive [facility] Comment on above: Order Comment: Speci men Type: BLOOD SPECIMENOrdering Facility: [facility] Address: [address] [place] [address] Performed By: #### 3 1201-7, 45949-8, 5195-3 ####[facility] [id number] [place] [address] [place] HIV immunoassay testing algorithm interpretation (S/P/Bld) [Interp] Normal [facility] Comment on above: Order Comment: Speci men Type: BLOOD SPECIMENOrdering Facility: [facility] Address: [address] [place] [address] Result Comment: No e vidence of HIV-1 or HIV-2 infection. Should recent infection be suspected, repeat testing may be considered 2-3 weeks after this draw. [place] Rev. Code 3701.243(E): This information has been [...] or diagnoses. Performed By: #### 3 1201-7, 20411-8, 5195-3 ####[facility] LABIA [id number] [place] [address] [place] HbA1c (Bld)on 12-09-2024 Average glucose Estimated from glycated hemoglobin (Bld) [Mass/Vol] 103 mg/dL Normal [facility] Comment on above: Order Comment: Speci men Type: BLOOD SPECIMENOrdering Facility: [facility] Address: [address] [place] [address] Result Comment: eAG: (Estimated average glucose) is a calculated value from HgbA1c and is treasury representative of the average blood glucose level in the last 2-3 month period. Performed By: #### 5 5454-3 ####[facility] LABCLIA [id number] [place] [address] [place] HbA1c (Bld) [Mass fraction] 5.2 % Normal 4.3-5.6 [facility] Comment on above: Order Comment: Speci men Type: BLOOD SPECIMENOrdering Facility: [facility] Address: [address] [place] [address] Result Comment: Amer [place] Diabetes Association guidelines indicate that patients with HgbA1c in the range 5.7-6.4% are at increased risk for development of diabetes, and intervention by lifestyle modification may be beneficial. HgbA1c greater or equal to 6.5% is considered diagnostic of diabetes. Performed By: #### 5 5454-3 ####[facility] LABIA [id number] [place] [address] [place] [id number] PLUSon 12-09-2024 Cell-free DNA./Cell-free DNA.total Dosage of chromosome-specific cfDNA (cfDNA) [Molar fraction] 10% Normal [facility] Comment on above: Order Comment: Daron miramontes Type: BLOOD SPECIMENOrdering Facility: [facility] Address: [address] [place] [address] Performed By: #### M AT21 ####[facility] LABCLIA [id number] [place] [address] Chr 13+18+21+X+Y aneuploidy Dosage of chromosome-specific cfDNA Ql (cfDNA) Negative Normal [facility] Comment on above: Order Comment: Daron miramontes Type: BLOOD SPECIMENOrdering Facility: [facility] Address: [address] [place] [address] Performed By: #### M AT21 ####[facility] [facility] LABCLIA [id number] [place] [address] Chr 21 trisomy Dosage of chromosome-specific cfDNA Ql (cfDNA) Negative Normal [facility] Comment on above: Order Comment: Speci men Type: BLOOD SPECIMENOrdering Facility: [facility] Address: [address] [place] [address] Performed By: #### M AT21 ####[facility] LABCLIA [id number] [place] [address] Chr X and Y aneuploidy risk Sequencing Ql (cfDNA) [Interp] Not detected Normal [facility] Comment on above: Order Comment: Speci men Type: BLOOD SPECIMENOrdering Facility: [facility] Address: [address] [place] [address] Result Comment: Not Detected Not Detected Performed By: #### M AT21 ####[facility] LABCLIA [id number] [place] [address] Citation Bryan (Reference lab test) Comment Normal [facility] Comment on above: Order Comment: Speci men Type: BLOOD SPECIMENOrdering Facility: [facility] Address: [address] [place] [address] Result Comment: 1. P twin RAMOS, et al. Mary Jo Med. 2012;14(3):296-305. 2. Florence YUEN, et al. Prenat Diag. 2013;33(6):591-597. 3. Pablito Whitfield, et al. Clin Chem. 2015 Apr;61(4):608-616. 4. Ana RAMOS, et al. Mary Jo Med. 2011;13(11):913-920. 5. ACOG/SMFM Practice Bulletin No. 226, Mar 2020. Performed By: #### M AT21 ####[facility] LABCLIA [id number] [place] [address] Gestational age Estimated from conception date Samano Normal [facility] Comment on above: Order Comment: Speci men Type: BLOOD SPECIMENOrdering Facility: [facility] Address: [address] [place] [address] Performed By: #### M AT21 ####[facility] LABCLIA [id number] [place] [address] GESTATIONALAGE AGE > OR = 9W Yes Normal [facility] Comment on above: Order Comment: Daron miramontes Type: BLOOD SPECIMENOrdering Facility: [facility] Address: [address] [place] [address] Performed By: #### M AT21 ####[facility] LABCLIA [id number] [place] [address] Laboratory comment Bryan (Report) Comment Normal [facility] Comment on above: Order Comment: Daron miramontes Type: BLOOD SPECIMENOrdering Facility: [facility] Address: [address] [place] [address] Result Comment: The MaterniT(R) 21 PLUS laboratory-developed test (LDT) analyzes circulating cell-free DNA from a maternal blood sample. This test is used for screening purposes and not diagnostic. Clinical correlation is recommended. Validation data on twin pregnancies is limited and the ability of this test to detect aneuploidy in higher multiple gestations has not yet been validated. Performed By: #### M AT21 ####[employer] [id number] [place] [id number] christian education director name Nom (Provider) Comment Normal [facility] Comment on above: Order Comment: Daron miramontes Type: BLOOD SPECIMENOrdering Facility: [facility] Address: [address] [place] [address] Result Comment: This specimen showed an expected representation of chromosome 21, 18 and 13 material. Clinical correlation is suggested. Comment Merritt Aviles MD, PhD, Director, [employer] Performed By: #### M AT21 ####[employer] LABPeekYouIA [id number] [place] [id number] LIMITATIONS OF THE TEST Comment Normal [facility] Comment on above: Order Comment: Daron miramontes Type: BLOOD SPECIMENOrdering Facility: [facility] Address: [address] [place] [address] Result Comment: Mckenzie rojas the results of [...] and Fragmin(R)). Performed By: #### M AT21 ####[facility] LABCLIA [id number] [place] [address] Monosomy X risk Dosage of chromosome-specific cfDNA Ql (Plasma cell-free+WBC DNA) [Interp] Not detected Normal [facility] Comment on above: Order Comment: Speci men Type: BLOOD SPECIMENOrdering Facility: [facility] Address: [address] [place] [address] Performed By: #### M AT21 ####[employer] LABPeekYouIA [id number] [place] [address] NEGATIVE PREDICTIVE VALUE Note Normal [facility] Comment on above: Order Comment: Speci men Type: BLOOD SPECIMENOrdering Facility: [facility] Address: [address] [place] [address] Result Comment: The Negative Predictive Value (NPV) for trisomy 21, 18, and 13 is greater than 99%. The NPV for SCA and ESS cannot be calculated as SCA and ESS are only reported when an abnormality is detected. Performed By: #### M AT21 ####[employer] LABPeekYouIA [id number] [place] [address] PERFORMANCE CHARACTERISTICS Note Normal [facility] Comment on above: Order Comment: Daron miramontes Type: BLOOD SPECIMENOrdering Facility: [facility] Address: [address] [place] [address] Result Comment: ! Sex ! Accuracy: 99.4% [...] gestation only. Performed By: #### M AT21 ####[employer] LABCLIA [id number] [place] [address] POSITIVE PREDICTIVE VALUE N/A Normal [facility] Comment on above: Order Comment: Speci men Type: BLOOD SPECIMENOrdering Facility: [facility] Address: [address] [place] [address] Performed By: #### M AT21 ####[facility] LABCLIA [id number] [place] [address] Reference Lab Test Method Comment Normal [facility] Comment on above: Order Comment: Speci men Type: BLOOD SPECIMENOrdering Facility: [facility] Address: [address] [place] [address] Result Comment: See Notes Circulating cell-free DNA [...] and 22. Performed By: #### M AT21 ####[employer] [id number] [place] [address] Service comment (Unsp spec) [Interp] Comment Normal [facility] Comment on above: Order Comment: Speci fe Type: BLOOD SPECIMENOrdering Facility: [facility] Address: [address] [place] [address] Result Comment: See Notes [employer] is a subsidiary of [employer], using the brand [employer]. This test was developed and its performance characteristics determined by [employer]. It has not been cleared or approved by the Food and Drug Administration. This laboratory is certified under the Clinical Laboratory Improvement Amendments (CLIA) as qualified to perform high complexity clinical laboratory testing and accredited by the [employer] [place] [employer] (CAP). If there is future clinical need for adding MaterniT GENOME testing, this specimen will be available until term. [facility] samples will not be retained beyond 60 days. [facility] patients will have to send a new sample for re-sequencing ([facility] Test Code: [id number]). Performed By: #### M AT21 ####[facility] LABCLIA [id number] [place] [address] Sex Dosage of chromosome-specific cfDNA Nom (cfDNA) Comment Normal [facility] Comment on above: Order Comment: Speci men Type: BLOOD SPECIMENOrdering Facility: [facility] Address: [address] [place] [address] Result Comment: Cons istent with Male Performed By: #### M AT21 ####[facility] [facility] LABCLIA [id number] [place] [address] Test performance information Bryan (Unsp spec) Comment Normal [facility] Comment on above: Order Comment: Speci men Type: BLOOD SPECIMENOrdering Facility: [facility] Address: [address] [place] [address] Result Comment: The performance characteristics of the MaterniT(R) 21 PLUS laboratory-developed test (LDT) have been determined in a clinical validation study with women at increased risk for chromosomal aneuploidy.[1-4] Performed By: #### M AT21 ####[facility] LABCLIA [id number] [place] [address] Trisomy 13 risk Dosage of chromosome-specific cfDNA Ql (cfDNA) [Interp] Negative Normal [facility] Comment on above: Order Comment: Speci men Type: BLOOD SPECIMENOrdering Facility: [facility] Address: [address] [place] [address] Performed By: #### M AT21 ####[facility] LABCLIA [id number] [place] [address] Trisomy 18 risk Dosage of chromosome-specific cfDNA Ql (Plasma cell-free+WBC DNA) [Interp] Negative Normal [facility] Comment on above: Order Comment: Speci men Type: BLOOD SPECIMENOrdering Facility: [facility] Address: [address] [place] [address] Performed By: #### M AT21 ####[facility] LABCLIA [id number] [place] [address] RBC PARAMETERS FOR HB IDon 0 12-09-2024 Erythrocyte distribution width (RBC) [Ratio] 13.1 % Normal 11.5-15.0 [facility] Comment on above: Order Comment: Speci men Type: BLOOD SPECIMENOrdering Facility: [facility] Address: [address] [place] [address] Performed By: #### L [id number] ####[facility] LABIA [id number] [place] [address] [place] Hemoglobin (Bld) [Mass/Vol] 12.7 g/dL Normal 11.5-15.5 [facility] Comment on above: Order Comment: Speci men Type: BLOOD SPECIMENOrdering Facility: [facility] Address: [address] [place] [address] Performed By: #### L [id number] ####[facility] LABIA [id number] [place] [address] [place] MCH (RBC) [Entitic mass] 29.3 pg Normal 26.0-34.0 [facility] Comment on above: Order Comment: Speci men Type: BLOOD SPECIMENOrdering Facility: [facility] Address: [address] [place] [address] Performed By: #### L [id number] ####[facility] LABIA [id number] [place] [address] [place] MCHC (RBC) [Mass/Vol] 32.2 g/dL Normal 30.5-36.0 [facility] Comment on above: Order Comment: Speci men Type: BLOOD SPECIMENOrdering Facility: [facility] Address: [address] [place] [address] Performed By: #### L [id number] ####[facility] LABIA [id number] [place] [address] [place] MCV (RBC) [Entitic vol] 90.8 fL Normal 80.0-100.0 [facility] Comment on above: Order Comment: Speci men Type: BLOOD SPECIMENOrdering Facility: [facility] Address: [address] [place] [address] Performed By: #### L [id number] ####[facility] LABIA [id number] [place] [address] [place] RBC (Bld) [#/Vol] 4.34 10*6/uL Normal 3.90-5.20 [facility] Comment on above: Order Comment: Daron miramontes Type: BLOOD SPECIMENOrdering Facility: [facility] Address: [address] [place] [address] Performed By: #### L [id number] ####[facility] LABIA [id number] [address] [place] RUBELLA IGG ANTIBODYon 12-09 RUBELLA IGG AB, QUAL Negative Abnormal Positive [facility] Comment on above: Order Comment: Daron miramontes Type: BLOOD SPECIMENOrdering Facility: [facility] Address: [address] [place] [address] Result Comment: The result suggests no history of Rubella vaccination or exposure to Rubella virus, however, some individuals with past history of Rubella vaccination may test negative using this test as immunity to Rubella virus wanes over time after vaccination. Please correlate with vaccination history if applicable. Performed By: #### R [id number] ####[facility] LABIA [id number] [address] [place] Reagin and Treponema pallidu m IgG and IgM [Interp]on 12-09-2024 T. pallidum IgG+IgM IA Ql (S) Non-Reactive Normal Nonreactive [facility] Comment on above: Order Comment: Daron miramontes Type: BLOOD SPECIMENOrdering Facility: [facility] Address: [address] [place] [address] Performed By: #### 3 1201-7, 03343-7, 5195-3 ####[facility] LABIA [id number] [place] [address] [place] Reagin+T pallidum IgG+IgM Se rPl-Impon 12-09-2024 Reagin and Treponema pallidum IgG and IgM [Interp] Cannot exclude recent Treponemal infection if specimen collected within 7-10 days after appearance of suspect lesions or 2-3 weeks after an exposure. Clinical correlation is required. Normal [facility] Comment on above: Order Comment: Speci men Type: BLOOD SPECIMENOrdering Facility: [facility] Address: [address] [place] [address] Performed By: #### 3 1201-7, 31167-8, 5195-3 ####[facility] LABCLIA [id number] [address] TYPE + SCREEN PRENATALon ABO O Normal [facility] Comment on above: Order Comment: Speci men Type: BLOOD SPECIMEN [facility]: [facility] Address: [address] [place] [address] Performed By: #### T SPN #### [facility] CLIA [id number] [address] [place] [address] [place] Rh Nom (Bld) Positive Normal [facility] Comment on above: Order Comment: Speci men Type: BLOOD SPECIMEN [facility] Address: [address] [place] [address] Performed By: #### T SPN #### [facility] BLOOD [facility] CLIA [id number] [address] [place] [address] TYPE AND SCREEN EXPIRATION 12/12/2024 23:59 Normal [facility] Comment on above: Order Comment: Tamarai men Type: BLOOD SPECIMEN [facility] Address: [address] [place] [address] Performed By: #### T SPN #### [facility] CLIA [id number] [address] [place] [address] [place] CNPNon 11-25-2024 CNPN Telephone (OBGYWM) JES FRANKS ([id number]) 1995 F Date Time Provider Department 11/25/24 [...] Signed I would recommend appointment tomorrow for certified personal trainer provider 11:30 or 3:30 if possible. Thanks, Susy Maddox APRN.Viry Balderas RN 11/25/2024 4:36 PM Signed Left message for patient to call office. Viry Hancock RN Allergies As of Date: 11/25/2024 Noted Allergy Reaction AMOXICILLIN 11/26/2018 8 - GI Upset 11 - Vomiting Date Reviewed: 11/03/2024 Reviewed by: Mary Kate Peralta APRN.CULINARY WORKER - Fully Assessed Reason for Visit: OB [...] Encounter Status:Closed by RUBY ANDRE on 11/27/24 [facility] [place] 11-20-2024 ASPEN Telephone (OBGYWM) JES FRANKS ([id number]) 1995 F Date Time Provider Department 11/20/24 MARY KATE PERALTA OBGYWM During your visit today, we recorded the following information about you: Jennifer Rodriguez RN 11/20/2024 12:16 PM Signed Mary Kate Peralta APRN.CULINARY WORKER 11/20/24 7:02 AM Note Pap ASCUS and HPV+, she will need a colp. Currently . Order filed. Mary Kate Peralta APRN.Jennifer Ocampo RN 11/20/2024 12:16 PM Signed Left message for patient to call office. FARIDA Aguilar Jennifer, RN 11/20/2024 12:53 PM Signed Patient notified. [place] scheduled. Daylin Boucher RN Allergies As of Date: 11/20/2024 Noted Allergy Reaction AMOXICILLIN 11/26/2018 8 - GI Upset 11 - Vomiting Date Reviewed: 11/03/2024 Reviewed by: Mary Kate Peralta APRN.CULINARY WORKER - Fully Assessed Reason for Visit: Abnormal [...] Status:Closed by DAYLIN BOUCHER on 11/20/24 Normal [facility] Bacteria Ur Culton Bacteria identified Cx Nom (U) ORGANISM ID: 1 <10,000 CFU/ml Mixed microbiota No further workup. Mixed microbiota can be due to???urine???contami nation with skin bacteria at time of collection or presence of a long-term urinary catheter. If a new culture is needed, please consider re-education of the patient on proper midstream collection technique or straight catheterization for???urine???collec tion. Normal [facility] Comment on above: Performed By: #### 6 30-4 ####[facility] LABCLIA [id number] [place] [address] [place] C. trachomatis+N. gonorrhoea e DNA LISS+probe Ql (Unsp spec)on 11-03-2024 C. trachomatis rRNA LISS+probe Ql (Unsp spec) Not detected Normal Not detected [facility] Comment on above: Order Comment: Speci men Type: SWABOrdering Facility: [facility] Address: [address] [place] [address] Performed By: #### 3 6902-5, TRVAMP ####[facility] LABIA [id number] [place] [address] [place] N. gonorrhoeae rRNA LISS+probe Ql (Unsp spec) Not detected Normal Not detected [facility] Comment on above: Order Comment: Speci men Type: SWABOrdering Facility: [facility] Address: [address] [place] [address] Performed By: #### 3 6902-5, TRVAMP ####[facility] LABIA [id number] [place] [address] [place] HIGH RISK HUMAN PAPILLOMA ROBIN (HPV), PCR FOR DETECTION AND GENOTYPINGon 11-03-2024 HPV 16 Ag Ql (Unsp spec) Not detected Normal Not detected [facility] Comment on above: Order Comment: Speci men Type: FLUID SPECIMENOrdering Facility: [facility] Address: [address] [place] [address] Performed By: #### H PVHRT ####[facility] LABCLIA [id number] [place] [address] [place] HPV 18 Ag Ql (Unsp spec) Not detected Normal Not detected [facility] Comment on above: Order Comment: Speci men Type: FLUID SPECIMENOrdering Facility: [facility] Address: [address] [place] [address] Performed By: #### H PVHRT ####[facility] LABCLIA [id number] [place] [address] [place] HPV 31+33+35+39+45+51+52+ 56+58+59+66+68 DNA LISS+probe Ql (Cvx) Detected Abnormal Not detected [facility] Comment on above: Order Comment: Speci men Type: FLUID SPECIMENOrdering Facility: [facility] Address: [address] [place] [address] Result Comment: High Risk HPV Other Type includes HPV types 31, 33, 35, 39, 45, 51, 52, 56, 58, 59, 66 and 68. Performed By: #### H PVHRT ####[facility] LABCLIA [id number] [place] [address] [place] PAP TESTon 11-03-2024 ADEQUACY Normal [facility] Comment on above: Order Comment: Speci men Type: FLUID SPECIMENOrdering Facility: [facility] Address: [address] [place] [address] Result Comment: Sati sfactory for interpretation. Transformation zone present Performed By: #### L [id number] ####[facility] LABCLIA [id number] [place] [id number] [place] CASE REPORT Normal [facility] Comment on above: Order Comment: Speci men Type: FLUID SPECIMENOrdering Facility: [facility] Address: [address] [place] [address] Result Comment: Gyne cologic Cytology Report Case: [id number] Authorizing Provider: Mary Kate Peralta APRN.CULINARY WORKER Collected: 11/03/2024 03:32 PM Ordering Location: OB/Gynecology Received: 11/04/2024 07:17 AM First Screen: Eva Viveros, CT, ASCP Pathologist: Deshawn Maxwell MD Specimen: Pap Test, ThinPrep, Cervix Performed By: #### L [id number] ####[facility] LABCLIA [id number] [place] [address] [place] CLINICAL HISTORY, CYTOLOGY, CONSUMER LOAN UNDERWRITER Routine Exam Normal [facility] Comment on above: Order Comment: Speci men Type: FLUID SPECIMENOrdering Facility: [facility] Address: [address] [place] [address] Performed By: #### L [id number] ####[facility] LABCLIA [id number] [place] [address] [place] FINAL PERFORMING LAB Normal [facility] Comment on above: Order Comment: Speci men Type: FLUID SPECIMENOrdering Facility: [facility] Address: [address] [place] [address] Result Comment: Tech nical component, chipper operator screening performed at: [facility], [address] [place], [place] [id number] CLIA: [id number] Diagnostic interpretation performed at: [facility], [address] [place] [address] [place] [address] CLIA# [id number] Motor Patrol Operator: Cole Daugherty MD Performed By: #### L [id number] ####[facility] LABCLIA [id number] [address] [address] [place] INTERPRETATION, CYTOLOGY, CONSUMER LOAN UNDERWRITER Abnormal [facility] Comment on above: Order Comment: Speci men Type: FLUID SPECIMENOrdering Facility: [facility] Address: [address] [place] [address] Result Comment: Atyp ical squamous cells of undetermined significance (ASC-US). at 1553 EDT Performed By: #### L [id number] ####[facility] LABCLIA [id number] [address] [address] [place] LMP 09/15/2024 Normal [facility] Comment on above: Order Comment: Speci men Type: FLUID SPECIMENOrdering Facility: [facility] Address: [address] [place] [address] Performed By: #### L [id number] ####[facility] LABCLIA [id number] [facility] [address], [facility] [place] PAP DISCLAIMER COMMENT The Pap Smear is a screening test for cervical cancer. False negative results occur with all screening tests, emphasizing the need for rescreening at recommended intervals, and clinical correlation. Normal [facility] Comment on above: Order Comment: Speci men Type: FLUID SPECIMENOrdering Facility: [facility] Address: [address] [place] [address] Performed By: #### L [id number] ####[facility] LABCLIA [id number] [address] [place] [address] [place] PAP GENERAL CATEGORIZATION Epithelial Cell Abnormality Normal [facility] Comment on above: Order Comment: Speci men Type: FLUID SPECIMENOrdering Facility: [facility] Address: [address] [place] [address] Performed By: #### L [id number] ####[facility] LABCLIA [id number] [address] [address] [place] PAP ALL SOURCE ANALYST COMMENT This specimen has been analyzed by the FDA-approved [employer] System, which uses digital imaging and an enhanced artificial intelligence image analysis algorithm to identify hernández of interest on the microscopic slide, to assist the international account representative and pathologist in evaluating cells on ThinPrep Pap tests. Following analysis, hernández of interest on the microscopic slide selected by the algorithm are reviewed by a international account representative. If a sample requires hierarchical review, the pathologist will review the same hernández of interest selected by the algorithm prior to final interpretation. Normal [facility] Comment on above: Order Comment: Speci men Type: FLUID SPECIMENOrdering Facility: [facility] Address: [address] [place] [address] Performed By: #### L [id number] ####[facility] LABCLIA [id number] [address] OF [place] POC NUT TIGHTENER ULTRASOUNDon 11-04-19 Indication Viability. Confirmation of intrauterine [...] By: Mary Kate Peralta CNP MATERNAL MEDICINE [facility] Radiology Study observation (narrative) [facility] TRICHOMONAS VAGINALIS Rahul 11-03-2024 T. vaginalis DNA LISS+probe Ql (Unsp spec) Not detected Normal Not detected [facility] Comment on above: Order Comment: Speci men Type: SWABOrdering Facility: [facility] Address: [address] [place] [address] Performed By: #### 3 6902-5, SUSHMA ####[facility] LABCLIA [id number] [facility] [place] [address] [place] AMPICILLIN:SUSC:PT:ISOLATE:O RDQN:MICon 06-13-2024 Ampicillin ALEXEI [Susc] 50,000 - 100,000 cfu/ml Escherichia coli [facility] Ampicillin ALEXEI [Susc]on 05-26 Escherichia coli Escherichia coli [facility]3] No Panel Informationon 02-07 Culture Urine 10,000 - 50,000 cfu/ml Multiple bacterial morphotypes present. Probable Contamination. Suggest recollection if clinically indicated. [facility] .Auto Diffon 11-15-2021 Basophil, Absolute 0.1 10 3/mcL Normal 0.0-0.2 [facility] ([place]) Comment on above: Performed By: #### H CGQ, FT4, TSH, FERR, CMP, GFR #### [address] [address] Basophils/100 WBC (Bld) 0.7 % Normal 0.0-2.5 [facility] ([place]) Comment on above: Performed By: #### H CGQ, FT4, TSH, FERR, CMP, GFR #### [address] [address] Eosinophil, Absolute 0.1 10 3/mcL Normal 0.0-0.4 Replaced by [facility] ([place]) Comment on above: Performed By: #### H CGQ, FT4, TSH, FERR, CMP, GFR #### [address] [address] Eosinophils/100 WBC (Bld) 1.4 % Normal 0.0-7.0 [facility] ([place]) Comment on above: Performed By: #### H CGQ, FT4, TSH, FERR, CMP, GFR #### [address] [address] Lymphocyte, Absolute 3.1 10 3/mcL Normal 0.8-3.9 Replaced by [facility] ([place]) Comment on above: Performed By: #### H CGQ, FT4, TSH, FERR, CMP, GFR #### [address] [address] Lymphocytes/100 WBC (Bld) 35.6 % Normal 10.0-50.0 [facility] ([place]) Comment on above: Performed By: #### H CGQ, FT4, TSH, FERR, CMP, GFR #### [address] [address] Monocyte, Absolute 0.6 10 3/mcL Normal 0.2-1.0 [facility] ([place]) Comment on above: Performed By: #### H CGQ, FT4, TSH, FERR, CMP, GFR #### [address] [address] Monocytes/100 WBC (Bld) 7.2 % Normal 1.7-13.0 [facility] ([place] Comment on above: Performed By: #### H CGQ, FT4, TSH, FERR, CMP, GFR #### [address] [address] Neutrophils/100 WBC (Bld) 55.1 % Normal 37.0-80.0 [facility] ([place]) Comment on above: Performed By: #### H CGQ, FT4, TSH, FERR, CMP, GFR #### [address] [address] .GFRon 11-15-2021 GFR 97 ml/min/1.73sqm Normal [facility] ([place]) Comment on above: Result Comment: GFR Population [...] FT4, TSH, FERR, CMP, GFR ####[address] [place], [place] [address] GFR Non- 80 ml/min/1.73sqm Normal [facility] ([place]) Comment on above: Result Comment: GFR Population [...] H CGQ, FT4, TSH, FERR, CMP, GFR ####[place] [address] [place], [place] [address] .MDWon 11-15-2021 Monocyte Distribution Width Not performed Normal 0.00-20.00 [facility] ([place] Comment on above: Result Comment: MDW testing performed only on adult ER patients between the ages of 18-89 years. Performed By: #### H CGQ, FT4, TSH, FERR, CMP, GFR #### [place] [id number] [place], [place] [address] .NEUABSon 11-15-2021 Neutrophil, Absolute 4.8 10 3/mcL Normal 2.9-6.2 Replaced by [facility] ([place] Comment on above: Performed By: #### H CGQ, FT4, TSH, FERR, CMP, GFR #### [place] [address] CBCon 11-15-2021 Erythrocyte distribution width (RBC) [Ratio] 13.3 % Normal 11.5-14.5 [facility] ([place] Comment on above: Performed By: #### H CGQ, FT4, TSH, FERR, CMP, GFR #### [place] [address] Hematocrit (Bld) [Volume fraction] 41.3 % Normal 37.0-47.0 [facility] ([place] Comment on above: Performed By: #### H CGQ, FT4, TSH, FERR, CMP, GFR #### [place] [address] Hgb 13.7 G/dL Normal 12.0-16.0 [facility] ([place] Comment on above: Performed By: #### H CGQ, FT4, TSH, FERR, CMP, GFR #### [place] [address] MCH (RBC) [Entitic mass] 29.3 pg Normal 27.0-31.2 [facility] ([place] Comment on above: Performed By: #### H CGQ, FT4, TSH, FERR, CMP, GFR #### [place] [address] MCHC 33.3 G/dL Normal 33.0-37.0 [facility] ([place] Comment on above: Performed By: #### H CGQ, FT4, TSH, FERR, CMP, GFR #### [place] [address] MCV (RBC) [Entitic vol] 88.0 fL Normal 80.0-94.0 [facility] ([place] Comment on above: Performed By: #### H CGQ, FT4, TSH, FERR, CMP, GFR #### [place] [address] Platelet 372 10 3/mcL Normal 130-400 [facility] ([place] Comment on above: Performed By: #### H CGQ, FT4, TSH, FERR, CMP, GFR #### [address] [address] Platelet mean volume (Bld) [Entitic vol] 8.1 fL Normal 7.4-10.4 [facility] ([place] Comment on above: Performed By: #### H CGQ, FT4, TSH, FERR, CMP, GFR #### [address] [address] RBC 4.69 10 6/mcL Normal 4.20-5.40 [facility] ([place] Comment on above: Performed By: #### H CGQ, FT4, TSH, FERR, CMP, GFR #### [address] [address] WBC 8.7 10 3/mcL Normal 4.6-10.8 [facility] ([place] Comment on above: Performed By: #### H CGQ, FT4, TSH, FERR, CMP, GFR #### [address] [address] CMPon 11-15-2021 Albumin Level 3.5 G/dL Normal 3.5-5.0 [facility] ([place] Comment on above: Performed By: #### H CGQ, FT4, TSH, FERR, CMP, GFR ####[address] [address] Albumin/Globulin [Mass ratio] 0.8 {ratio} Low 1.1-2.5 [facility] ([place] Comment on above: Performed By: #### H CGQ, FT4, TSH, FERR, CMP, GFR ####[address] [address] ALP [Catalytic activity/Vol] 70 U/L Normal 40-135 [facility] ([place] Comment on above: Performed By: #### H CGQ, FT4, TSH, FERR, CMP, GFR ####[place] [address] [place], [place] [address] ALT [Catalytic activity/Vol] 35 U/L Normal 14-59 [facility] ([place] Comment on above: Performed By: #### H CGQ, FT4, TSH, FERR, CMP, GFR ####[address] [place], [place] [address] AST [Catalytic activity/Vol] 27 U/L Normal 10-40 [facility] ([place] Comment on above: Performed By: #### H CGQ, FT4, TSH, FERR, CMP, GFR ####[address] [place], [place] [address] Bili Total 0.2 mg/dL Normal 0.2-1.0 [facility] ([place] Comment on above: Result Comment: Use of this assay is not recommended for patients undergoing treatment with eltrombopag due to the potential for falsely elevated results. Performed By: #### H CGQ, FT4, TSH, FERR, CMP, GFR ####[address] [place], [place] [address] BUN/Creatinine Ratio 10 ratio Normal 7-27 [facility] ([place]) Comment on above: Performed By: #### H CGQ, FT4, TSH, FERR, CMP, GFR ####[address] [place], [place] [address] Calcium [Mass/Vol] 9.1 mg/dL Normal 8.4-10.2 [facility] ([place]) Comment on above: Performed By: #### H CGQ, FT4, TSH, FERR, CMP, GFR ####[address] [place], [place] [address] Chloride [Moles/Vol] 101 mmol/L Normal 98-107 [facility] ([place]) Comment on above: Performed By: #### H CGQ, FT4, TSH, FERR, CMP, GFR ####[facility] [place], [place] [address] CO2 [Moles/Vol] 28 mmol/L Normal 22-29 [facility] ([place] Comment on above: Performed By: #### H CGQ, FT4, TSH, FERR, CMP, GFR ####[address] [place], [place] [address] Creatinine [Mass/Vol] 0.86 mg/dL Normal 0.55-1.02 [facility]) Comment on above: Performed By: #### H CGQ, FT4, TSH, FERR, CMP, GFR ####[address] [place], [place] [address] Electrolyte Balance 9.0 mEq/L Normal 4.0-15.0 [facility] ([place]) Comment on above: Performed By: #### H CGQ, FT4, TSH, FERR, CMP, GFR ####[address] [place], [place] [address] Globulin 4.2 G/dL Normal [facility] ([place]) Comment on above: Performed By: #### H CGQ, FT4, TSH, FERR, CMP, GFR ####[address] [place], [place] [address] Glucose [Mass/Vol] 95 mg/dL Normal 70-105 [facility] ([place]) Comment on above: Performed By: #### H CGQ, FT4, TSH, FERR, CMP, GFR ####[address] [place], [place] [address] Potassium [Moles/Vol] 4.0 mmol/L Normal 3.5-5.1 [facility] ([place]) Comment on above: Performed By: #### H CGQ, FT4, TSH, FERR, CMP, GFR ####[address] [place], [place] [address] Sodium [Moles/Vol] 138 mmol/L Normal 136-145 [facility] ([place]) Comment on above: Performed By: #### H CGQ, FT4, TSH, FERR, CMP, GFR ####[address] [place], [place] [address] Total Protein 7.7 G/dL Normal 6.4-8.2 [facility] ([place]) Comment on above: Performed By: #### H CGQ, FT4, TSH, FERR, CMP, GFR ####[address] [place], [place] [address] Urea nitrogen [Mass/Vol] 9 mg/dL Normal 7-18 [facility] ([place]) Comment on above: Performed By: #### H CGQ, FT4, TSH, FERR, CMP, GFR ####[facility] [place], [place] [address] Ly 11-15-2021 Ferritin [Mass/Vol] 107.0 ng/mL Normal 8.0-252.0 [facility] ([place]) Comment on above: Performed By: #### H CGQ, FT4, TSH, FERR, CMP, GFR #### [place] [place], [place] [address] FT4on 11-15-2021 Free T4 [Mass/Vol] 0.91 ng/dL Normal 0.76-1.46 [facility] ([place]) Comment on above: Performed By: #### H CGQ, FT4, TSH, FERR, CMP, GFR #### [address] [place], [place] [address] HCGQon 11-15-2021 hCG, quantitative <1.0 Normal [facility] ([place]) Comment on above: Result Comment: HCG Levels [...] H CGQ, FT4, TSH, FERR, CMP, GFR ####[address] [place], [place] [address] LABORATORYOrdered By: Lora Tejeda on 11-15-2021 Albumin [...] 11-15-2021 TSH Qn 0.99 m[IU]/L Normal 0.36-3.74 [facility] ([place]) Comment on above: Performed By: #### H CGQ, FT4, TSH, FERR, CMP, GFR #### [address] [place], [place] [address] [id number] 06-24-2021 Date of Onset 20210607 Invalid Interpretation Code [facility] ([place] Comment on above: Performed By: #### Roseann BOOTHD19 ####[address] [place], [place] [address] Employed in Healthcare No [facility] ([place]) Comment on above: Performed By: ###Orly GREENWOOD9 ####[address] [place], [place] [address] First Test No [facility] ([place] Comment on above: Performed By: #### Roseann OVD19 ####[address] [place], [place] [address] Hospitalized No [facility] ([place] Comment on above: Performed By: #### Roseann OVNorberto9 ####[address] [place], [place] [address] ICU No Normal [facility] ([place] Comment on above: Performed By: #### C OVD19 ####[address] [place], [place] [address] Not Normal [facility] ([place] Comment on above: Performed By: #### C OVD19 ####[address] [place], [place] [address] Resides in Congregate Care Setting No Normal [facility] ([place] Comment on above: Performed By: #### C OVD19 ####[address] [place], [place] [address] SARS-CoV-2 (COVID-19) RNA LISS+probe Ql (Unsp spec) Positive Abnormal Negative [facility] ([place] Comment on above: Performed By: #### C OVD19 ####[address] [place], [place] [address] SARS-CoV-2 (COVID-19) RNA LISS+probe Ql (Unsp spec) Normal [facility] ([place] Comment on above: Result Comment: Posi tive results are indicative of the presence of SARS-CoV-2 RNA; clinical correlation with patient history and other diagnostic information is necessary to determine patient infection status. Positive results do not rule out bacterial infection or co-infection with other viruses. The agent detected may not be the definite cause of disease. Laboratories within the [facility] and its territories are required to report [...] Int Performed By: #### C OVD19 ####[address] [place] [address] Symptomatic as Defined by CDC Yes [facility] ([place] Comment on above: Performed By: #### C OVD19 ####[address] [place] [address] [id number] 06-17-2021 Date of Onset 20210607 Invalid Interpretation Code [facility] ([place] Comment on above: Performed By: #### C OVD19 #### [address] [place] [address] Employed in Healthcare No [facility] ([place] Comment on above: Performed By: #### C OVD19 #### [address] [place] [address] First Test No [facility] ([place] Comment on above: Performed By: #### C OVD19 #### [address] [address] Hospitalized No [facility] ([place] Comment on above: Performed By: #### C OVD19 #### [address] [address] ICU No [facility] ([place] Comment on above: Performed By: #### C OVD19 #### [address] [place] [address] Not [facility] ([place] Comment on above: Performed By: #### C OVD19 #### Ros[address] [address] Resides in Congregate Care Setting No [facility] ([place] Comment on above: Performed By: #### C OVD19 #### Ros[address] [address] SARS-CoV-2 (COVID-19) RNA LISS+probe Ql (Unsp spec) Negative Normal Negative [facility] ([place] Comment on above: Performed By: #### C OVD19 #### [address] [address] SARS-CoV-2 (COVID-19) RNA LISS+probe Ql (Unsp spec) [facility] ([place] Comment on above: Result Comment: Nega tive [...] Int Performed By: #### C OVD19 #### [address] [address] Symptomatic as Defined by CDC Yes [facility] ([place] Comment on above: Performed By: #### C OVD19 #### [address] [address] LABORATORYOrdered By: Mitra [place] on 06-16-2021 ADMITTED [...] Invalid Interpretation Code AO Auto Urine SS [id number] 06-09-2021 Date of Onset 20210607 Invalid Interpretation Code [facility] ([place] Comment on above: Performed By: #### C OVD19 ####[address] [place], [place] [address] Employed in Healthcare No Normal [facility] ([place]) Comment on above: Performed By: #### C OVD19 ####[address] [place], [place] [address] First Test Yes Normal [facility] ([place] Comment on above: Performed By: #### C OVD19 ####[address] [place], [place] [address] Hospitalized No [facility] ([place]) Comment on above: Performed By: #### C OVD19 ####[address] [place] [address] ICU No Normal [facility] ([place] Comment on above: Performed By: #### C OVD19 ####[address] [place] [address] Not [facility] ([place] Comment on above: Performed By: #### C OVD19 ####[address] [place] [address] Resides in Congregate Care Setting No [facility] ([place] Comment on above: Performed By: #### C OVD19 ####[address] [place], [place] [address] SARS-CoV-2 (COVID-19) RNA LISS+probe Ql (Unsp spec) Negative Normal Negative [facility] ([place] Comment on above: Performed By: #### C OVD19 ####[address] [place], [place] [address] SARS-CoV-2 (COVID-19) RNA LISS+probe Ql (Unsp spec) Normal [facility] ([place] Comment on above: Result Comment: Nega tive [...] COVID-19 Int Performed By: #### C OVD19 ####[address] [place], [place] [address] Symptomatic as Defined by CDC Yes Normal [facility] ([place] Comment on above: Performed By: #### C OVD19 ####[address] [place], [place] [address] LABORATORYOrdered By: Lora Tejeda on 06-09-2021 ADMITTED [...] Invalid Interpretation Code AO Auto Urine SS [id number] 02-17-2021 Date of Onset [id number] Invalid Interpretation Code [facility] ([place] Comment on above: Performed By: #### C OVD19 #### [place] [address] Employed in Healthcare No [facility] ([place] Comment on above: Performed By: #### C OVD19 #### [place] [address] First Test No [facility] ([place] Comment on above: Performed By: #### C OVD19 #### [place] [address] Hospitalized No [facility] ([place] Comment on above: Performed By: #### C OVD19 #### [place] [address] ICU No [facility] ([place] Comment on above: Performed By: #### C OVD19 #### [place] [address] Unknown [facility] ([place] Comment on above: Performed By: #### C OVD19 #### [place] [address] Resides in Congregate Care Setting No [facility] ([place] Comment on above: Performed By: #### C OVD19 #### [place] [address] [place] [address] SARS-CoV-2 (COVID-19) RNA LISS+probe Ql (Unsp spec) Negative Normal Negative [facility] ([place] Comment on above: Performed By: #### C OVD19 #### [address] [address] SARS-CoV-2 (COVID-19) RNA LISS+probe Ql (Unsp spec) Normal [facility] ([place]) Comment on above: Result Comment: Nega [...] Int Performed By: #### C OVD19 #### [address] [address] Symptomatic as Defined by CDC No Normal [facility] ([place] Comment on above: Performed By: #### C OVD19 #### [address] [address] Vital Signs Date Time Vital Sign Value Performing Clinician Aman crow 03-06-2025 14:49-0400 Body mass index (BMI) [Ratio] 40.74 kg/m2 Daylin Lopez MD Work Phone: [facility] 03-06-2025 14:49-0400 Body weight 104.33 kg Daylin Lopez MD Work Phone: [facility] 03-06-2025 14:49-0400 Diastolic blood pressure 76 mm[Hg] Daylin Lopez MD Work Phone: [facility] 03-06-2025 14:49-0400 Systolic blood pressure 132 mm[Hg] Daylin Lopez MD Work Phone: [facility] 02-26-2025 15:31-0400 Body mass index (BMI) [Ratio] 40.03 kg/m2 Amrita Sullivan MD Work Phone: [facility] 02-26-2025 15:31-0400 Body weight 102.51 kg Amrita Sullivan MD Work Phone: [facility] 02-26-2025 15:31-0400 Diastolic blood pressure 72 mm[Hg] Amrita Sullivan MD Work Phone: [facility] 02-26-2025 15:31-0400 Systolic blood pressure 118 mm[Hg] Amrita Sullivan MD Work Phone: [facility] 02-02-2025 16:14-0400 Body mass index (BMI) [Ratio] 39.68 kg/m2 Susy Tan OLSEN.CNM Work Phone: [facility] 02-02-2025 16:14-0400 Body weight 101.61 kg Susy Tan HEADEND TECHNICIAN.CNM Work Phone: [facility] 02-02-2025 16:14-0400 Diastolic blood pressure 62 mm[Hg] Susy Maddox HEADEND TECHNICIAN.CNM Work Phone: [facility] 02-02-2025 16:14-0400 Systolic blood pressure 108 mm[Hg] Susy Maddox HEADEND TECHNICIAN.CNM Work Phone: [facility] 01-12-2025 16:28-0400 Body mass index (BMI) [Ratio] 40 kg/m2 Amrita Sullivan MD Work Phone: [facility] 01-12-2025 16:28-0400 Body weight 102.42 kg Amrita Sullivan MD Work Phone: [facility] 01-12-2025 16:28-0400 Diastolic blood pressure 74 mm[Hg] Amrita Sullivan MD Work Phone: [facility] 01-12-2025 16:28-0400 Systolic blood pressure 112 mm[Hg] Amrita Sullivan MD Work Phone: [facility] 12-09-2024 16:10-0400 Body mass index (BMI) [Ratio] 40.03 kg/m2 Susy Maddox HEADEND TECHNICIAN.CNM Work Phone: [facility] 12-09-2024 16:10-0400 Body weight 102.51 kg Susy Maddox HEADEND TECHNICIAN.CNM Work Phone: [facility] 12-09-2024 16:10-0400 Diastolic blood pressure 78 mm[Hg] Susy Maddox HEADEND TECHNICIAN.CNM Work Phone: [facility] 12-09-2024 16:10-0400 Systolic blood pressure 120 mm[Hg] Susy Maddox HEADEND TECHNICIAN.CNM Work Phone: [facility] 11-03-2024 14:35-0400 Body height 160 cm Mary Kate Newport HEADEND TECHNICIAN.CULINARY WORKER Work Phone: [facility] 11-03-2024 14:35-0400 Body mass index (BMI) [Ratio] 39.54 kg/m2 Mary Kate Fabian HEADEND TECHNICIAN.CULINARY WORKER Work Phone: [facility] 11-03-2024 14:35-0400 Body weight 101.24 kg Mary Kate Newport HEADEND TECHNICIAN.CULINARY WORKER Work Phone: [facility] 11-03-2024 14:35-0400 Diastolic blood pressure 70 mm[Hg] Mary Kate Fabian HEADEND TECHNICIAN.CULINARY WORKER Work Phone: [facility] 11-03-2024 14:35-0400 Systolic blood pressure 112 mm[Hg] Mary Kate Newport HEADEND TECHNICIAN.CULINARY WORKER Work Phone: [facility] 04-11-2024 08:28-0400 Body mass index (BMI) [Ratio] 37.35 kg/m2 Verónica Haury HEADEND TECHNICIAN.CULINARY WORKER Work Phone: [facility] 04-11-2024 08:28-0400 Body weight 100.25 kg Verónica Moss HEADEND TECHNICIAN.CULINARY WORKER Work Phone: [facility] 04-11-2024 08:28-0400 Diastolic blood pressure 82 mm[Hg] Verónica Haury HEADEND TECHNICIAN.CULINARY WORKER Work Phone: [facility] 04-11-2024 08:28-0400 Heart rate 92 /min Verónica Haury HEADEND TECHNICIAN.CULINARY WORKER Work Phone: [facility] 04-11-2024 08:28-0400 Respiratory rate 14 /min Verónica Haury HEADEND TECHNICIAN.CULINARY WORKER Work Phone: [facility] 04-11-2024 08:28-0400 SaO2% (BldA) [Mass fraction] 98 % Verónica Edwardsgeovanna HEADEND TECHNICIAN.CULINARY WORKER Work Phone: [facility] 04-11-2024 08:28-0400 Systolic blood pressure 120 mm[Hg] Verónica Haury HEADEND TECHNICIAN.CULINARY WORKER Work Phone: [facility] 10-31-2022 08:58-0400 Body height 163.8 cm Kaitlin Talley MD Work Phone: [facility] 10-31-2022 08:58-0400 Body weight 92.53 kg Kaitlin Talley MD Work Phone: [facility] 10-31-2022 08:58-0400 Diastolic blood pressure 76 mm[Hg] Kaitlin Talley MD Work Phone: [facility] 10-31-2022 08:58-0400 Systolic blood pressure 114 mm[Hg] Kaitlin Talley MD Work Phone: [facility] Encounters Encounter Date Encounter Type Care Provider Facility Start: 05-01-2025 End: 05-01-2025 ambulatory DAYLIN LOPEZ Facility:[facility] Start: 04-08-2025 End: 04-08-2025 ambulatory AMRITA SULLIVAN Facility:[facility] Start: 04-03-2025 End: 04-03-2025 ambulatory [facility] Facility:[facility] Start: 03-06-2025 End: 03-06-2025 Patient encounter procedure Daylin Lopez MD Work Phone: OB/Gynecology Comment on above: Obesity affecting pr egnancy in second trimester, unspecified obesity type (HCC) (Primary Dx); Depression affecting (HCC) Start: 03-06-2025 End: 03-06-2025 ambulatory DAYILN LOPEZ Facility:[facility] Start: 02-26-2025 End: 02-26-2025 Patient encounter procedure Amrita Sullivan MD Work Phone: OB/Gynecology Comment on above: ASCUS with positive high risk HPV cervical (Primary Dx); Screening for diabetes mellitus; 23 weeks gestation of (HCC) Start: 02-26-2025 End: 02-26-2025 [facility] Start: 02-03-2025 End: 02-03-2025 Telephone encounter [...] Start: 02-02-2025 End: 02-02-2025 ambulatory SUSY MADDOX Facility:[facility] Start: 01-15-2025 End: 01-15-2025 Telephone encounter Emma Villela MD Work Phone: [facility] Start: 01-12-2025 End: 01-12-2025 ambulatory AMRITA SULLIVAN Facility:[facility] Start: 01-12-2025 End: 01-12-2025 Patient encounter procedure Amrita Sullivan MD Work Phone: OB/Gynecology Comment on above: Supervision of high risk due to social problems, antepartum (HCC) (Primary Dx); 17 weeks gestation of (HCC); Obesity in (HCC); Rubella non-immune status, antepartum (HCC) Start: 01-08-2025 End: 01-08-2025 ambulatory GENI SHARP Facility:[facility] Start: 01-08-2025 End: 01-08-2025 Patient encounter procedure Whi Tech 2 Measuring Machine Tender [facility] Comment on above: Encounter for anatomic survey (HCC) (Primary Dx); Obesity in (HCC); 16 weeks gestation of (HCC) Start: 12-22-2024 End: 12-24-2024 Telephone encounter Susy Maddox APRN.CNM Work Phone: OB/Gynecology Start: 12-09-2024 End: 12-09-2024 ambulatory [facility] Facility:[facility] Start: 12-09-2024 End: 12-09-2024 Patient encounter procedure Susy Maddox APRN.CNM Work Phone: OB/Gynecology Comment on above: Supervision of high risk due to social problems, antepartum (HCC) (Primary Dx); Obesity in (HCC) Obesity in (HCC) (Primary Dx); 7 weeks gestation of (HCC) Start: 12-09-2024 End: 12-09-2024 ambulatory MARY KATE GLENBROOK Facility:[facility] Start: 11-25-2024 End: 11-27-2024 Telephone encounter Susy Maddox APRN.CNM Work Phone: OB/Gynecology Comment on above: OB Spotting Start: 11-20-2024 End: 11-20-2024 Telephone encounter [facility] JANICE Work Phone: OB/Gynecology Comment on above: Abnormal Pap Start: 11-04-2024 End: 01-04-2025 Follow-up encounter Mary Kate Peralta CULINARY WORKER Work Phone: OB/Gynecology Comment on above: Results Start: 11-03-2024 End: 11-03-2024 Patient encounter procedure Mary Kate Peralta CULINARY WORKER Work Phone: OB/Gynecology Comment on above: Supervision of high risk due to social problems, antepartum (HCC) (Primary Dx); 7 weeks gestation of (HCC); with uncertain dates, antepartum (HCC); Screen for STD (sexually transmitted disease); Screening for cervical cancer; Special screening examination for human papillomavirus (HPV); BMI 39.0-39.9,adult Start: 11-03-2024 End: 11-03-2024 ambulatory MARY KATE SPANGLERCALF Facility:[facility] Start: 06-13-2024 End: 06-17-2024 ambulatory SUSY PRICE APRN-CULINARY WORKER Facility:[facility] Start: 06-13-2024 End: 06-17-2024 Outreach Lab SOFIA LOVE APRN-CULINARY WORKER [facility] Start: 04-11-2024 End: 04-11-2024 Patient encounter procedure Verónica Moss APRN.CNP Work Phone: OB/Gynecology Comment on above: Encounter for gyneco logical examination (general) (routine) without abnormal findings (Primary Dx); Screen for STD (sexually transmitted disease) Start: 04-11-2024 End: 04-11-2024 Patient encounter status Verónica Moss APRN.CULINARY WORKER Work Phone: [facility] Start: 10-31-2022 End: 10-31-2022 Patient encounter procedure Kaitlin Talley MD Work Phone: OB/Gynecology Comment on above: Encounter for gyneco logical examination (general) (routine) without abnormal findings (Primary Dx) Start: 10-31-2022 End: 10-31-2022 Patient encounter status Kaitlin Talley MD Work Phone: OB/Gynecology Start: 02-07-2022 End: 02-11-2022 Outreach Lab SUSY PRICE HEADEND TECHNICIAN-CULINARY WORKER [facility] Start: 11-15-2021 End: 11-15-2021 Patient encounter procedure SUSY PRICE HEADEND TECHNICIAN-CULINARY WORKER [facility] Start: 06-16-2021 End: 06-16-2021 Patient encounter procedure SHYAM SINGH HEADEND TECHNICIAN-CULINARY WORKER [facility] Start: 06-09-2021 End: 06-09-2021 Patient encounter procedure ADAL BARTON HEADEND TECHNICIAN-CULINARY WORKER [facility] Start: 08-20-2017 End: 08-20-2017 [facility] Facility:[facility] Procedures Date Procedure Procedure Detail Performing Clinician Start: 02-02-2025 Us preg uterus after 1st trimest 1/1st gestation Mary Kate Fabian HEADEND TECHNICIAN.CULINARY WORKER Work Phone: Start: 01-08-2025 Us preg uterus after 1st trimest 1/1st gestation Geni Sharp MD Work Phone: Start: 12-09-2024 Antibody screen MARY KATE RUBIO Comment on above: Order Comment: Speci men Type: BLOOD SPECIMEN Ordering Facility: [facility] Address: [address] [place] [address] Performed By: #### T SPN #### [facility] CLIA [id number] [address] [place] [address] [place] Start: 12-09-2024 Us preg uterus after 1st trimest 1/1st gestation Mary Kate Fabian HEADEND TECHNICIAN.CULINARY WORKER Work Phone: Start: 11-03-2024 Us uterus limited 1/> fetuses Mary Kate Fabian HEADEND TECHNICIAN.CULINARY WORKER Work Phone: Plan of Treatment Date Care Activity Detail Author Start: 11-03-2025 Screening for malignant neoplasm of cervix Cervical Cancer Screening [facility] Start: 05-27-2025 End: 05-27-2025 Patient encounter procedure Maternal Medicine Comment on above: growth 38 wks OB Start: 05-01-2025 End: 05-01-2025 Patient encounter procedure Maternal Medicine Comment on above: growth 32 wks OB Start: 04-27-2025 RSV Vaccine (1 - Ris k 1-dose series) RSV Vaccine (1 - Risk 1-dose series) [facility] Start: 04-13-2025 End: 04-13-2025 Patient encounter procedure 04/13/2025 4:00 PM EDT Office Visit OB/Gynecology [address] [place] [address] Verónica Moss APRN.CULINARY WORKER [address] [place] [address] Annual OB/Gynecology Comment on above: Annual Start: 04-03-2025 End: 04-03-2025 Patient encounter procedure 04/03/2025 2:40 PM EDT Routine Office Visit OB/Gynecology [address] [place] [address] Amrita Sullivan MD [address] [place] [address] OB/glucose/growth OB/Gynecology Comment on above: OB/glucose/growth Start: 04-03-2025 End: 04-03-2025 ambulatory 04/03/2025 2:15 PM EDT Results Only [place] Dias [facility] [address] [place] [address] glucose + labs [place] [address] [facility] Comment on above: glucose + labs Start: 04-03-2025 End: 04-03-2025 Patient encounter procedure 04/03/2025 1:30 PM EDT Routine Office Visit Maternal Medicine [address] [place] [address] growth Maternal Medicine Comment on above: growth Start: 03-28-2025 End: 06-27-2025 ANEMIA REFLEX PANEL ANEMIA REFLEX PANEL Lab Routine 23 weeks gestation of ([facility]) Expected: 03/28/2025 (Approximate), Expires: 06/27/2025 [facility] Comment on above: Expected: 03/28/2025 (Approximate), Expires: 06/27/2025 Start: 03-28-2025 End: 02-26-2026 GESTATIONAL GLUCOSE SCREEN, 1-HOUR, 50 GRAM, NON-FASTING GESTATIONAL GLUCOSE SCREEN, 1-HOUR, 50 GRAM, NON-FASTING Lab Routine Screening for diabetes mellitus 23 weeks gestation of ([facility]) Expected: 03/28/2025 (Approximate), Expires: 02/26/2026 [facility] Comment on above: Expected: 03/28/2025 (Approximate), Expires: 02/26/2026 Start: 03-28-2025 End: 02-26-2026 SYPHILIS TREPONEMAL W/REFLEX SYPHILIS TREPONEMAL W/REFLEX Lab Routine 23 weeks gestation of ([facility]) Expected: 03/28/2025 (Approximate), Expires: 02/26/2026 [facility] Comment on above: Expected: 03/28/2025 (Approximate), Expires: 02/26/2026 Start: 03-06-2025 End: 03-06-2025 Patient encounter procedure 03/06/2025 2:50 PM EDT Routine Office Visit OB/Gynecology [address] [place], [place] [address] Daylin Lopez MD [address] [place] [address] needs ultrasound? OB OB/Gynecology Comment on above: needs ultrasound? OB Start: 02-26-2025 End: 02-26-2025 Patient encounter procedure OB/Gynecology Comment on above: : ASCUS with positiv e high risk HPV cervical [R87.610, R87.810] OB/ has colposcopy a ppt at 3:40 w/ lisa Start: 02-23-2025 Influenza vaccination C [facility] Start: 02-02-2025 End: 02-02-2025 Patient encounter procedure Maternal Medicine Comment on above: Anatomy Anatomy/OB Start: 01-12-2025 End: 01-12-2025 Patient encounter procedure 01/12/2025 4:20 PM EDT Routine Office Visit OB/Gynecology [address] [place] [address] Amrita Sullivan MD [address] [place] [address] OB OB/Gynecology Comment on above: OB Start: 01-08-2025 End: 01-08-2025 Patient encounter procedure 01/08/2025 2:00 PM EDT Routine Office Visit Maternal Medicine [address] [id number] Dx: Obesity in (HCC) [O99.210] Maternal Medicine Comment on above: Dx: Obesity in pregn carolyn (HCC) [O99.210] Start: 01-05-2025 End: 01-05-2025 Patient encounter procedure 01/05/2025 3:10 PM EDT Routine Office Visit OB/Gynecology [address] [place] [address] Kaitlin Talley MD [address] [place] [address] OB OB/Gynecology Comment on above: OB Start: 12-19-2024 End: 12-19-2024 Patient encounter procedure 12/19/2024 3:40 PM EDT Office Visit OB/Gynecology [address] [place] [address] Daylin Lopez MD [address] [place] [address] OB Colposcopy OB/Gynecology Comment on above: OB Colposcopy Start: 12-10-2024 End: 12-10-2025 OBSTETRIC ULTRASOUND WHI OBSTETRIC ULTRASOUND WHI Anc Imaging Routine Obesity in (HCC) Expected: 12/10/2024, Expires: 12/10/2025 [facility] Work Phone: Comment on above: Expected: 12/10/2024 , Expires: 12/10/2025 Start: 12-09-2024 End: 12-09-2024 Patient encounter procedure Maternal Medicine Comment on above: Nuchal Est New OB /Nuchal/O B Start: 12-09-2024 End: 03-10-2025 Chromosome 21 trisomy [Presence] in Blood or Tissue by Cytogenetics [facility] Comment on above: Expected: 12/09/2024 , Expires: 03/10/2025 Start: 12-09-2024 End: 03-10-2025 HEMOGLOBIN EVALUATION CASCADE [facility] Work Phone: Comment on above: Expected: 12/09/2024 , Expires: 03/10/2025 Start: 11-03-2024 End: 02-02-2025 ANEMIA REFLEX PANEL ANEMIA REFLEX PANEL Lab Routine with uncertain dates, antepartum (HCC) Expected: 11/03/2024, Expires: 02/02/2025 [facility] Work Phone: Comment on above: Expected: 11/03/2024 , Expires: 02/02/2025 Start: 11-03-2024 End: 02-02-2025 Hemoglobin A1c in Blood HEMOGLOBIN A1C Lab Routine with uncertain dates, antepartum (HCC) Expected: 11/03/2024, Expires: 02/02/2025 [facility] Comment on above: Expected: 11/03/2024 , Expires: 02/02/2025 Start: 11-03-2024 End: 02-02-2025 Hepatitis B virus surface Ag [Presence] in Serum HEPATITIS B SURFACE ANTIGEN Lab Routine with uncertain dates, antepartum (HCC) Expected: 11/03/2024, Expires: 02/02/2025 [facility] Comment on above: Expected: 11/03/2024 , Expires: 02/02/2025 Start: 11-03-2024 End: 02-02-2025 Hepatitis C virus Ab [Presence] in Serum HEPATITIS C ANTIBODY IA WITH CONFIRMATION Lab Routine with uncertain dates, antepartum (HCC) Expected: 11/03/2024, Expires: 02/02/2025 [facility] Comment on above: Expected: 11/03/2024 , Expires: 02/02/2025 Start: 11-03-2024 End: 02-02-2025 HIV 1+2 Ab [Presence] in Serum or Plasma by Immunoassay HIV 1/2 COMBO WITH REFLEX TO DIFFERENTIATION Lab Routine with uncertain dates, antepartum (HCC) Expected: 11/03/2024, Expires: 02/02/2025 [facility] Comment on above: Expected: 11/03/2024 , Expires: 02/02/2025 Start: 11-03-2024 End: 11-03-2025 OBSTETRIC ULTRASOUND WHI OBSTETRIC ULTRASOUND WHI Anc Imaging Routine 7 weeks gestation of (HCC) Expected: 11/03/2024, Expires: 11/03/2025 [facility] Comment on above: Expected: 11/03/2024 , Expires: 11/03/2025 Start: 11-03-2024 End: 02-02-2025 RUBELLA IGG ANTIBODY RUBELLA IGG ANTIBODY Lab Routine with uncertain dates, antepartum (HCC) Expected: 11/03/2024, Expires: 02/02/2025 [facility] Comment on above: Expected: 11/03/2024 , Expires: 02/02/2025 Start: 11-03-2024 End: 02-02-2025 SYPHILIS TREPONEMAL W/REFLEX SYPHILIS TREPONEMAL W/REFLEX Lab Routine with uncertain dates, antepartum (HCC) Expected: 11/03/2024, Expires: 02/02/2025 [facility] Comment on above: Expected: 11/03/2024 , Expires: 02/02/2025 Start: 11-03-2024 End: 02-02-2025 TYPE + SCREEN TYPE + SCREEN Blood Bank Routine with uncertain dates, antepartum (HCC) Expected: 11/03/2024, Expires: 02/02/2025 [facility] Comment on above: Expected: 11/03/2024 , Expires: 02/02/2025 Start: 09-02-2024 PAP TESTING PAP TESTING [facility] Start: 09-02-2024 Screening for malignant neoplasm of cervix Cervical Cancer Screening [facility] Start: 02-24-2024 Covid-19 Vaccine () Covid-19 Vaccine () [facility] Start: 02-24-2024 Influenza vaccination Influenza Vacc ine (#1) [facility] Start: 02-23-2023 Influenza vaccination INFLUENZA (Sea son Ended) [facility] Start: 06-25-2022 DEPRESSION ASSESSMENT DEPRESSION ASS ESSMENT [facility] Start: 01-07-2020 Urine microalbumin profile [facility] Start: 2014 Anxiety Screening Anxiety Screening [facility] Start: 2014 Depression Screening Depression Scre ening [facility] Start: 2014 HEPATITIS C SCREENING HEPATITIS C [facility] Start: 2014 Hepatitis C screening Hepatitis C [facility] Start: 2014 HIV SCREENING HIV SCREENING [facility] Start: 2014 HIV screening HIV Screening [facility] Start: 2010 PEDS TO ADULT TRANSITION ANNUAL ASSESSMENT PEDS TO ADULT TRANSITION ANNUAL ASSESSMENT [facility] Start: 2008 PEDS TO ADULT TRANSITION INITIAL DISCUSSION PEDS TO ADULT TRANSITION INITIAL DISCUSSION [facility] Start: 01-28-1997 COVID-19 VACCINE (#1) COVID-19 VACCI NE (#1) [facility] Bacteria identified in Urine by Culture BACTERIAL CULTURE, URINE Microbiology Routine with uncertain dates, antepartum (HCC) 11/03/2024 3:32 PM EDT [facility] Chlamydia trachomatis+Neisseria gonorrhoeae DNA [Presence] in Unspecified specimen by LISS with probe detection GONORRHEA/CHLAMYDIA NAAT Lab Routine Encounter for gynecological examination (general) (routine) without abnormal findings 04/11/2024 9:06 AM EDT [facility] Work Phone: Chlamydia trachomatis+Neisseria gonorrhoeae DNA [Presence] in Unspecified specimen by LISS with probe detection GONORRHEA/CHLAMYDIA NAAT Lab Routine with uncertain dates, antepartum (HCC) 11/03/2024 3:32 PM EDT [facility] COLPOSCOPY COLPOSCOPY Proce dures Routine ASCUS with positive high risk HPV cervical Ordered: 11/20/2024 [facility] Work Phone: Comment on above: Ordered: 11/20/2024 COLPOSCOPY COLPOSCOPY Proce dures Routine ASCUS with positive high risk HPV cervical Ordered: 02/26/2025 [facility] Work Phone: Comment on above: Ordered: 02/26/2025 End: 06-22-2025 OBSTETRIC ULTRASOUND [facility]I OBSTETRIC ULTRASOUND [facility] Anc Imaging Routine Obesity affecting in second trimester, unspecified obesity type (HCC) Once per month for 4 Occurrences starting 03/06/2025 until 06/22/2025 [facility] Work Phone: Comment on above: Once per month for 4 Occurrences starting 03/06/2025 until 06/22/2025 PAP TEST PAP TEST Lab Dl gusman Screening for cervical cancer Special screening examination for human papillomavirus (HPV) Ordered: 11/03/2024 [facility] Comment on above: Ordered: 11/03/2024 TRICHOMONAS VAGINALI S NAAT TRICHOMONAS VAGINALIS NAAT Lab Routine Screen for STD (sexually transmitted disease) 04/11/2024 9:06 AM EDT [facility] TRICHOMONAS VAGINALI S NAAT TRICHOMONAS VAGINALIS NAAT Lab Routine Screen for STD (sexually transmitted disease) 11/03/2024 3:32 PM EDT [facility] Immunizations Immunization Date Immunization Notes Care Provider [place] 03-25-2013 influenza, live, intranasal, quadrivalent Kaitlin Talley MD Work Phone: [facility] Work Phone: 03-25-2013 influenza virus vacc ine, unspecified formulation Verónica Moss HEADEND TECHNICIAN.CULINARY WORKER Work Phone: [facility] 07-30-2012 human papilloma viru s vaccine, quadrivalent Kaitlin Talley MD Work Phone: [facility] Work Phone: 07-30-2012 Human Papillomavirus Quadval [employer] HEADEND TECHNICIAN-CULINARY WORKER [facility] 05-29-2012 influenza virus vacc ine, live, attenuated, for intranasal use Kaitlin Talley MD Work Phone: [facility] Work Phone: 05-29-2012 influenza virus vacc ine, unspecified formulation ADAL BARTON HEADEND TECHNICIAN-CULINARY WORKER [facility] 02-28-2012 human papilloma viru s vaccine, quadrivalent Kaitlin Talley MD Work Phone: [facility] Work Phone: 02-28-2012 Human Papillomavirus Quadval [facility] 12-22-2011 human papilloma viru s vaccine, quadrivalent Kaitlin Talley MD Work Phone: [facility] Work Phone: 12-22-2011 Human Papillomavirus Quadval [facility] 01-06-2010 diphtheria and tetan us toxoids, adsorbed for pediatric use [facility] 01-08-2009 meningococcal polysaccharide (groups A, C, Y and W-135) diphtheria toxoid conjugate vaccine (MCV4P) [facility] 02-18-2002 diphtheria, tetanus toxoids and acellular pertussis vaccine [facility] 02-18-2002 measles, mumps and rubella virus vaccine Kaitlin Talley MD Work Phone: [facility] Work Phone: 02-18-2002 measles/mumps/rubell a virus vaccine [facility] 02-18-2002 poliovirus vaccine, inactivated [facility] 03-14-1999 varicella virus vaccine [facility] 05-26-1998 diphtheria, tetanus toxoids and acellular pertussis vaccine [facility] 05-26-1998 haemophilus influenz ae type b vaccine, PRP-T conjugate [facility] 05-26-1998 poliovirus vaccine, inactivated [facility] 08-03-1997 hepatitis B vaccine, unspecified formulation [facility] 08-03-1997 measles, mumps and rubella virus vaccine Kaitlin Talley MD Work Phone: [facility] Work Phone: 08-03-1997 measles/mumps/rubell a virus vaccine [facility] 02-11-1997 diphtheria, tetanus toxoids and acellular pertussis vaccine [facility] 02-11-1997 haemophilus influenz ae type b vaccine, PRP-T conjugate [facility] 1996 diphtheria, tetanus toxoids and acellular pertussis vaccine [facility] 1996 haemophilus influenz ae type b vaccine, PRP-T conjugate [facility] HEADEND TECHNICIAN-[facility] 1996 poliovirus vaccine, [facility] HEADEND TECHNIC[facility]-CULINARY WORKER [facility] 1996 diphtheria, tetanus toxoids and acellular pertussis [facility] HEAD[facility] TECHNIC[facility]-CULINARY WORKER [facility] 1996 haemophilus influenz ae type b vaccine, PRP-T conjugate [facility] HEADEND TECHNICIAN-CULINARY WORKER [facility] 1996 hepatitis B vaccine, unspecified formulation [facility] HEADEND TECHNICIAN-[facility] 1996 poliovirus vaccine, inactivated [facility] HEADEND TECHNICIAN-CULINARY WORKER [facility] 1996 hepatitis B vaccine, unspecified formulation [facility] HEADEND TECHNICIAN-CULINARY WORKER [facility] Payers Date Payer Category Payer Private Health Insurance MMO SUP ERMED O Member Subscriber Plan / Payer (Effective 2022-Present) Name: Jes Franks Relation to Subscriber: Self Name: Jes Franks Payer ID: Not on file Type: PPO Address: [place] [id number] 2022 Unknown [id number] 2022 Unknown [id number] 2017 Self-pay 1996 Unknown [id number] Social History Date Type Detail Facility Start: 08-04-2019 End: 01-24-2023 Light tobacco smoker (finding) [facility] Sex Assigned At Female [facility] Start: 08-11-2021 End: 10-31-2022 Tobacco smoking status Ex-smoker (finding) [facility] History of tobacco use Current smoker [facility] History of tobacco use Cigarette Smoker [facility] Start: 10-31-2022 Tobacco use and exposure Smoke less tobacco non-user [facility] Start: 10-31-2022 End: 03-06-2025 Alcohol intake Current drinker of alcohol (finding) [facility] Start: 11-26-2018 Alcohol Comment social [facility] Start: 1995 Sex Assigned At Not on file C [facility] Start: 04-11-2024 End: 11-03-2024 History of Social function [facility] Start: 04-11-2024 End: 11-03-2024 Tobacco use panel [facility] Start: 05-26-2012 National Score (1-10 0), lower number is lower risk 55 [facility] Sexual Orientation [facility] Start: 12-18-2018 Sex Female (finding) [facility] Start: 09-29-2024 [facility] Goals Date Patient Goal Desired Activity [...] apparent distress Abd: Gravid, nontender Recently in [place] for vacation. Had some swelling that hasn't [...] of withdrawal and depression. Daylin Lopez MD [facility] 03-06-2025 Miscellaneous Notes S: Jes Franks is a 29 year old female who presents at 06/22/2025, by Last Menstrual Period for a routine visit. Denies headache, visual changes, chest pain, shortness of breath, vaginal bleeding, leakage of fluid, or dysuria. Feeling well, no complaints. Good movement, No contractions O: See flow sheet Gen: No apparent distress Abd: Gravid, nontender Recently in [place] for vacation. Had some swelling that hasn't [...] Daylin Lopez MD documented in this encounter [facility] 03-06-2025 Instructions Surya Christianson LPN - 03/06/2025 2:48 PM EDT SEQUENTIAL SCREENINGS The [facility] offers sequential screenings for women who [...] It will require an appointment with our fuel cell technician. This is not an ultrasound performed [...] the above symptoms, contact our office at [phone] and ask to speak with a nurse. After hours, you can call doctors registry at [phone] OR call [facility] at [phone] and ask to have the doctor certified personal trainer paged. If you consider this an emergency, dial 8-2-2 or go to your nearest emergency department. NEED HELP? Are you dealing with a violent or abusive relationship? Are you a victim of rape or sexual assult? Call [facility] ([place]) 24 hour Crisis Hotline: 878.594.4633 or 138-730-6052. MANUAL Your Guide to a Healthy manual is now on-line. Visit [email or web address] [email or web address] to download your free copy documented in this encounter [facility] 02-26-2025 Note HNO ID: [id number] Author: AMRITA SULLIVAN MD Service: ? Author Type: Physician Type: Progress Notes Filed: 02/26/2025 18:04 Note Text: Reverberatory Furnace Operator offered: Patient declines. Andre is a 29 [...] for routine OB visit. Amrita Sullivan DO [facility] 02-26-2025 History of Presen t illness Narrative Reverberatory Furnace Operator offered: Patient declines. Jes is a 29 [...] Amrita Sullivan DO documented in this encounter [facility] 02-26-2025 Instructions Jacquie Massey MA - [...] your doctor's office. documented in this encounter [facility] 02-03-2025 Telephone encounter Note Should start at 32 weeks We can order these at a future visit. Katlin Burns MD [facility] Work Phone: 02-03-2025 Miscellaneous Notes Should [...] follow-up as clinically indicated. Mary Kate Peralta APRN.CULINARY WORKER documented in this encounter [facility] 02-03-2025 Telephone encounter Note Patient needs order for q 4 week growth ultrasounds. Are they supposed to start now or at 32 weeks? Ruby Andre RN [facility] 02-03-2025 Telephone encounter Note Anatomy u/s reviewed. No abnormalities identified. Follow up as clinically indicated. Please notify patient and place on record. Recommendations Serial growth ultrasounds every 4 weeks. Weekly testing starting at 36 weeks. Additional follow-up as clinically indicated. Mary Kate Peralta APRN.CULINARY WORKER [facility] 02-02-2025 Progress note Formatting of t [...] RTO in 4 weeks Susy Maddox APRN.CNM [facility] 02-02-2025 Miscellaneous Notes MARISA-S: Jes Franks [...] Susy Maddox APRN.CNM documented in this encounter [facility] 02-02-2025 Instructions Kayla Miller MA - 02/02/2025 4:13 PM EDT SEQUENTIAL SCREENINGS The [facility] offers sequential screenings for women who [...] It will require an appointment with our fuel cell technician. This is not an ultrasound performed [...] the above symptoms, contact our office at [phone] and ask to speak with a nurse. After hours, you can call doctors registry at [phone] OR call [facility] at [phone] and ask to have the doctor certified personal trainer paged. If you consider this an emergency, dial 9 or go to your nearest emergency department. NEED HELP? Are you dealing with a violent or abusive relationship? Are you a victim of rape or sexual assult? Call [facility] ([place]) 24 hour Crisis Hotline: 756.332.8674 or 610-987-1589. MANUAL Your Guide to a Healthy manual is now on-line. Visit [email or web address] [email or web address] to download your free copy documented in this encounter [facility] 01-15-2025 Telephone encounter Note APC 2 [facility], appt scheduled via PSS. [facility] for Prevention of Cervical Cancer [facility] 01-15-2025 Miscellaneous Notes APC 2 Patient reviewed mesg regarding Colpo, appt scheduled via PSS. [facility] Prevention of Cervical Cancer documented in this encounter [facility] 01-12-2025 Progress note Formatting of t [...] RTO anatomy and visit Amrita Sullivan DO [facility] 01-12-2025 Miscellaneous Notes SW- No pain, vb, lof. Some constipation PE: Gen- NAD, well appearing Abd- Soft, gravid - Cont LDA - Reviewed treatment of constipation - Discussed abnormal pap smear results and recommend scheduling colposcopy - Completed early anatomy US. Schedule 20 wk anatomy - RTO anatomy and visit Amrita Sullivan DO documented in this encounter [facility] 01-12-2025 Instructions Jacquie Massey MA - 01/12/2025 4:28 PM EDT SEQUENTIAL SCREENINGS The [facility] offers sequential screenings for women who [...] It will require an appointment with our fuel cell technician. This is not an ultrasound performed [...] the above symptoms, contact our office at [phone] and ask to speak with a nurse. After hours, you can call doctors registry at [phone] OR call [facility] at [phone] and ask to have the doctor certified personal trainer paged. If you consider this an emergency, dial 7--8 or go to your nearest emergency department. NEED HELP? Are you dealing with a violent or abusive relationship? Are you a victim of rape or sexual assult? Call [facility] ([place]) 24 hour Crisis Hotline: 335.584.9536 or 583-628-7670. MANUAL Your Guide to a Healthy manual is now on-line. Visit [email or web address] [email or web address] to download your free copy documented in this encounter [facility] 12-10-2024 Progress note Formatting of t his note might be different from the original. Anatomy ultrasound reviewed. NEEDS 16 and 20 week US APPT. No abnormalities identified. Follow up as clinically indicated. Please place copy in ob chart. Kaitlin Talley MD [facility] 12-10-2024 Miscellaneous Notes Anatomy ultrasound reviewed. NEEDS 16 and 20 week US APPT. No abnormalities identified. Follow up as clinically indicated. Please place copy in ob chart. Kaitlin Talley MD Pap ASCUS and HPV+, she will need a colp. Currently . Order filed. Mary Kate Peralta APRN.DEBBI documented in this encounter [facility] 12-09-2024 Note HNO ID: [id number] Author: SUSY MADDOX APRN.CNM Service: ? Author Type: Acoustical Tile Patternmaker Type: Progress Notes Filed: 12/09/2024 16:36 Note [...] problems, antepartum - HEMOGLOBIN EVALUATION CASCADE - [id number] PLUS - PN labs today - Declines carrier screening. 2. Obesity in Pregravid BMI 39 Growth US every 4 wk at 32 weeks NST weekly at 36 weeks PTL precautions reviewed and when to call RTO in 4 weeks Susy Maddox APRN.CNM [facility] 12-09-2024 History of Presen t illness Narrative [...] problems, antepartum - HEMOGLOBIN EVALUATION CASCADE - [id number] PLUS - PN labs today - Declines carrier screening. 2. Obesity in Preg[place]id BMI 39 Growth US every 4 wk at 32 weeks NST weekly at 36 weeks PTL precautions reviewed and when to call RTO in 4 weeks Susy Maddox APRN.CNM documented in this encounter [facility] 11-25-2024 Telephone encounter Note Left message for patient to call office. Viry Hancock, FARIDA [facility] 11-25-2024 Miscellaneous Notes Left message for patient to call office. Viry Hancock, FARIDA I would recommend appointment tomorrow for certified personal trainer provider 11:30 or 3:30 if possible. Thanks, [...] Jennifer Rodriguez RN documented in this encounter [facility] 11-25-2024 Telephone encounter Note I would recommend appointment tomorrow for certified personal trainer provider 11:30 or 3:30 if possible. Thanks, Susy Maddox APRN.CNM [facility] Work Phone: 11-25-2024 Telephone encounter Note [...] for 12/09. Please advise. Jennifer Rodriguez RN [facility] 11-20-2024 Telephone encounter Note Patient notified. [place] scheduled. Daylin Boucher RN [facility] 11-20-2024 Miscellaneous Notes Patient notified. [place] scheduled. Daylin Boucher RN Left message for patient to call office. Jennifer Rodriguez RN Mary Kate Peralta APRN.CNP 11/20/24 7:02 AM Note Pap ASCUS and HPV+, she will need a colp. Currently . Order filed. Mary Kate Peralta APRN.CNP documented in this encounter [facility] 11-20-2024 Telephone encounter Note Left message for patient to call office. Jennifer Rodriguez RN [facility] 11-20-2024 Telephone encounter Note Mary Kate Peralta APRN.CNP 11/20/24 7:02 AM Note Pap ASCUS and HPV+, she will need a colp. Currently . Order filed. Mary Kate Peralta APRN.CNP [facility] 11-20-2024 Telephone encounter Note Pap ASCUS and HPV+, she will need a colp. Currently . Order filed. Mary Kate Peralta APRN.CNP [facility] 11-03-2024 History of Presen t illness Narrative Patient declined manager cost. 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 As applicable, any other physician, advance practice provider, medical student, or other health professional student that will be observing or involved in the sensitive examination for educational or training purposes was discussed with the Patient or Authorized Travel Sales Consultant. The Patient or Authorized Travel Sales Consultant has agreed to proceed with the sensitive [...] CRL consistent with LMP. Mary Kate Peralta, PRETTY.CULINARY WORKER ASSESSMENT: 29 year old at 7w0d wks gestational age PLAN: 1) Patient oriented to practice. Patient given new OB orientation folder. Discussed nutrition, folic acid supplementation, dietary guidelines, exercise, smoking, alcohol, caffeine, and drug use. Discussed gestational weight gain guidelines. Discussed routine OB labs including STD/HIV. Discussed how to access Your guide to a health and the Livestock Farm Manager. Reviewed midwifery and cath lab manager services that are available. 2) Screening: Hemoglobin [...] Kate Peralta APRN.CNP documented in this encounter [facility] 11-03-2024 Note HNO ID: [id number] Author: MARY KATE PERALTA APRN.CNP Service: ? Author Type: Nurse Practitioner Type: Progress Notes Filed: 11/03/2024 16:01 Note Text: Patient declined manager cost. 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 [facility] 11-03-2024 Instructions Janna Riddle LPN - 11/03/2024 1:13 PM EDT Please select the following link to access the [facility] Your Guide to a Healthy . [email or web address] documented in this encounter [facility] 06-15-2024 Note . MICRO - Microbiology [...] Locations *1: This test was performed at: [address], [facility] , [facility] 04-11-2024 Instructions Verónica Moss APRN.CNP - 04/11/2024 [...] These are formulated to give you a rotor winder period. First day of next menstrual period [...] less iron deficiency anemia in pill users. FDC use is associated with a decreased incidence [...] and mild fluid retention. There is no real estate paralegal weight gain with the use of the [...] necessary health information. 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 As applicable, any other physician, advance practice provider, medical student, or other health professional student that will be observing or involved in the sensitive examination for educational or training purposes was discussed with the Patient or Authorized Travel Sales Consultant. The Patient or Authorized Travel Sales Consultant has agreed to proceed with the sensitive [...] external genitalia normal, normal Bartholin's glands, urethra, [place]'s glands, no vulvar lesions, no cervical lesions, [...] year or sooner as needed Verónica Moss APRN.CULINARY WORKER documented in this encounter [facility] 10-31-2022 History of Presen t illness [...] L0 SAB0 IAB0 Ectopic0 Multiple0 Live Births0 Sensitizer History LMP: 09/18/2022 (Exact Date), Having periods Age at Menarche: Age at First : Age at Menopause: Sensitizer History Comments: Sexual Activity: Yes; Male Contraception: [...] external genitalia normal, normal Bartholin's glands, urethra, [place]'s glands, no vulvar lesions, no cervical lesions, [...] Kaitlin Talley MD documented in this encounter [facility] 02-09-2022 Note . MICRO - Microbiology [...] Locations *1: This test was performed at: [place], [address] [place] [address], [id number] , [facility] ([place]) Evaluation + Plan note No data available for this section [facility] Evaluation + Plan note Future Appointments Appointment Date:01/18/2022 08:30:00 AM Scheduled Provider:SUSY PRICE Location:[facility] Appointment Type:PC OV Follow Up [facility] Evaluation + Plan note Future Appointments Appointment Date:02/06/2023 07:30:00 AM Scheduled Provider:SUSY PRICE Location:[facility] Appointment Type:PC Wellness Annual [facility] Evaluation note Diagnosis Encounter for gynecological examination (general) (routine) without abnormal findings- Primary [facility] [place] [facility] Diagnosis Encounter for gynecological examination (general) (routine) without abnormal findings- Primary Screen for STD (sexually transmitted disease) Screening examination for venereal disease [facility] [place] [facility] Diagnosis Supervision of high risk due to social problems, antepartum (HCC)- Primary 7 weeks gestation of (HCC) state, incidental with uncertain dates, antepartum ([facility]) state, incidental Screen for STD (sexually transmitted disease) Screening examination for venereal disease Screening for cervical cancer Screening for malignant neoplasm of the cervix Special screening examination for human papillomavirus (HPV) BMI 39.0-39.9,adult Body Mass Index 39.0-39.9, adult [facility] [place] [facility]* Diagnosis Supervision of high risk due to social problems, antepartum (HCC)- Primary Obesity in (HCC) Obesity complicating , childbirth, or the puerperium, unspecified as to episode of care or not applicable [facility] [place] [facility]* Diagnosis Obesity in (HCC)- Primary Obesity complicating , childbirth, or the puerperium, unspecified as to episode of care or not applicable 7 weeks gestation of (HCC) state, incidental [facility] [place] [facility]* Diagnosis ASCUS with positive high risk HPV cervical- Primary Cervical high risk human papillomavirus (HPV) DNA test positive Rubella non-immune status, antepartum ([facility]) Other specified complication, antepartum documented in this encounter [facility] note* Diagnosis Encounter for anatomic survey (HCC)- Primary Encounter for anatomic survey Obesity in ([facility]) Obesity complicating , childbirth, or the puerperium, unspecified as to episode of care or not applicable 16 weeks gestation of (HCC) state, incidental [facility] [place] [facility]* Diagnosis Supervision of high risk due to social problems, antepartum ([facility])- Primary 17 weeks gestation of ([facility]) state, incidental Obesity in ([facility]) Obesity complicating , childbirth, or the puerperium, unspecified as to episode of care or not applicable Rubella non-immune status, antepartum ([facility]) Other specified complication, antepartum [facility] [place] [facility]* Diagnosis Supervision of high risk in second trimester (HCC)- Primary Unspecified high-risk 20 weeks gestation of ([facility]) state, incidental Obesity affecting in second trimester, unspecified obesity type ([facility]) ASCUS with positive high risk HPV cervical Cervical high risk human papillomavirus (HPV) DNA test positive Rubella non-immune status, antepartum ([facility]) Other specified complication, antepartum Encounter for anatomic survey ([facility]) Encounter for anatomic survey Suspected anomaly not found [facility] [place] [facility] Diagnosis Encounter for anatomic survey (HCC)- Primary Encounter for anatomic survey 20 weeks gestation of ([facility]) state, incidental Suspected anomaly not found Other obesity affecting in second trimester ([facility]) documented [facility] [place] [facility]* Diagnosis Supervision of high risk in second trimester ([facility])- Primary Unspecified high-risk Obesity affecting in second trimester, unspecified obesity type ([facility]) [facility] [place] [facility] Diagnosis ASCUS with positive high risk HPV cervical- Primary Cervical high risk human papillomavirus (HPV) DNA test positive Screening for diabetes mellitus 23 weeks gestation of ([facility]) state, incidental [facility] [place] [facility]* Diagnosis Obesity affecting in second trimester, unspecified obesity type ([facility])- Primary Depression affecting ([facility]) [facility] No data available for this section [facility] Progress note No data available for this section [facility] Summary Purpose Family History No Family History Records FoundNo Family History Records Found No data available for this section No Family History Records FoundNo Family History Records Found Advance Directives No Advanced Directives Records FoundNo Advanced Directives Records FoundNo Advanced Directives Records FoundNo Advanced Directives Records Found Additional Source Comments INFORMATION SOURCE (unrecogn ized section and content) DATE CREATED AUTHOR 12/14/2017 [facility] DATE CREATED AUTHOR AUTHOR'S ORGANIZ ATION 02/14/2022 [facility] ([place]) DATE CREATED AUTHOR AUTHOR'S ORGANIZ ATION 06/19/2024 [facility] DATE CREATED AUTHOR AUTHOR'S ORGANIZ ATION 05/06/2025 [facility] Care Team (unrecognized sect ion and content) 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 Paver Operator Relationship Specialty Start Date End Date Susy Price CNP [address] [place] [address] PCP - General Family Medicine 10/20/24 Asphalt Paver Operator Relationship Specialty Start Date End Date Susy Price CNP [address] [place] [address] PCP - General Family Medicine 10/20/24 Asphalt Paver Operator Relationship Specialty Start Date End Date Susy Price CNP [address] [place] [address] PCP - General Family Medicine 10/20/24 Asphalt Paver Operator Relationship Specialty Start Date End Date Susy Price CNP [address] [place] [address] PCP - General Family Medicine 10/20/24 Asphalt Paver Operator Relationship Specialty Start Date End Date Susy Price CNP [address] [place] [address] PCP - General Family Medicine 10/20/24 Asphalt Paver Operator Relationship Specialty Start Date End Date Susy Price CNP [address] [place] [address] PCP - General Family Medicine 10/20/24 Asphalt Paver Operator Relationship Specialty Start Date End Date Susy Price CNP [address] [place] [address] PCP - General Family Medicine 10/20/24 Asphalt Paver Operator Relationship Specialty Start Date End Date Susy Price CNP [address] [place] [address] PCP - General Family Medicine 10/20/24 Asphalt Paver Operator Relationship Specialty Start Date End Date Susy Price CNP [address] [place] [address] PCP - General Family Medicine 10/20/24 Asphalt Paver Operator Relationship Specialty Start Date End Date Susy Price CNP [address] [place] [address] PCP - General Family Medicine 10/20/24 Asphalt Paver Operator Relationship Specialty Start Date End Date Susy Price CNP [address] [place] [address] PCP - General Family Medicine 10/20/24 Asphalt Paver Operator Relationship Specialty Start Date End Date Susy Price CNP [address] [place] [address] PCP - General Family Medicine 10/20/24 Asphalt Paver Operator Relationship Specialty Start Date End Date Albert Susy Farrell CNP [address] [place] [phone] PCP - General Family Medicine 10/20/24 Care Team (unrecognized sect ion and content) Care Team Personnel Name: ALBERT SUSYBO Farrell APRN-DEBBI Position: P4 Advanced Practice Nurse Med Service: Employed Provider Member Role: Primary Care Physician Address: Address: [address] [place] [address] [facility] [address] Care Team Related Persons Name: HA FRANKS Address: Home [address], [place] [id number] Source Comments (unrecognize d section and content) In the event this informatio n is protected by the Federal Confidentiality of Alcohol and Drug Abuse Patient Records regulations: The Federal rules restrict any use of the information to criminally investigate or prosecute any alcohol or drug abuse patient.[facility] event this information is protected by the Federal Confidentiality of Alcohol and Drug Abuse Patient Records regulations: The Federal rules restrict any use of the information to criminally investigate or prosecute any alcohol or drug abuse patient.[facility] the event this information is protected by the Federal Confidentiality of Alcohol and Drug Abuse Patient Records regulations: The Federal rules restrict any use of the information to criminally investigate or prosecute any alcohol or drug abuse patient.[facility] the event this information is protected by the Federal Confidentiality of Alcohol and Drug Abuse Patient Records regulations: The Federal rules restrict any use of the information to criminally investigate or prosecute any alcohol or drug abuse patient.[facility] the event this information is protected by the Federal Confidentiality of Alcohol and Drug Abuse Patient Records regulations: The Federal rules restrict any use of the information to criminally investigate or prosecute any alcohol or drug abuse patient.[facility] the event this information is protected by the Federal Confidentiality of Alcohol and Drug Abuse Patient Records regulations: The Federal rules restrict any use of the information to criminally investigate or prosecute any alcohol or drug abuse patient.[facility] the event this information is protected by the Federal Confidentiality of Alcohol and Drug Abuse Patient Records regulations: The Federal rules restrict any use of the information to criminally investigate or prosecute any alcohol or drug abuse patient.[facility] the event this information is protected by the Federal Confidentiality of Alcohol and Drug Abuse Patient Records regulations: The Federal rules restrict any use of the information to criminally investigate or prosecute any alcohol or drug abuse patient.[facility] the event this information is protected by the Federal Confidentiality of Alcohol and Drug Abuse Patient Records regulations: The Federal rules restrict any use of the information to criminally investigate or prosecute any alcohol or drug abuse patient.[facility] the event this information is protected by the Federal Confidentiality of Alcohol and Drug Abuse Patient Records regulations: The Federal rules restrict any use of the information to criminally investigate or prosecute any alcohol or drug abuse patient.[facility] the event this information is protected by the Federal Confidentiality of Alcohol and Drug Abuse Patient Records regulations: The Federal rules restrict any use of the information to criminally investigate or prosecute any alcohol or drug abuse patient.[facility] the event this information is protected by the Federal Confidentiality of Alcohol and Drug Abuse Patient Records regulations: The Federal rules restrict any use of the information to criminally investigate or prosecute any alcohol or drug abuse patient.[facility] the event this information is protected by the Federal Confidentiality of Alcohol and Drug Abuse Patient Records regulations: The Federal rules restrict any use of the information to criminally investigate or prosecute any alcohol or drug abuse patient.[facility] the event this information is protected by the Federal Confidentiality of Alcohol and Drug Abuse Patient Records regulations: The Federal rules restrict any use of the information to criminally investigate or prosecute any alcohol or drug abuse patient.[facility] the event this information is protected by the Federal Confidentiality of Alcohol and Drug Abuse Patient Records regulations: The Federal rules restrict any use of the information to criminally investigate or prosecute any alcohol or drug abuse patient.[facility] the event this information is protected by the Federal Confidentiality of Alcohol and Drug Abuse Patient Records regulations: The Federal rules restrict any use of the information to criminally investigate or prosecute any alcohol or drug abuse patient.[facility] the event this information is protected by the Federal Confidentiality of Alcohol and Drug Abuse Patient Records regulations: The Federal rules restrict any use of the information to criminally investigate or prosecute any alcohol or drug abuse patient.[facility] Reason for Visit (unrecogniz ed section [...] AFTER 1ST TRIMEST GESTATION Mary Kate Peralta, PRETTY.CULINARY WORKER [address] [place] [address] Phone: tel: fax: [address] [phone] Referral ID Status Reason Start Date Expiration Date V isits Requested Visits Authorized [id number] Closed Auto-Generate d Referral 11/03/2024 11/03/2025 1 1 Reason Onset Date Comments Results 11/04/2024 Reason Comments US Specialty Diagnoses / Procedures Referred By Contac t Referred To Contact [facility] Diagnoses Obesity in (HCC) Procedures OBSTETRIC ULTRASOUND WHI US PREG UTERUS AFTER 1ST TRIMEST GESTATION August, MD [address] [place] [address] Phone: tel: fax: [address] [phone] Referral ID Status Reason Start Date Expiration Date V isits Requested Visits Authorized [id number] Closed Auto-Generate d Referral 12/10/2024 12/10/2025 1 1 Reason Onset Date Comments Care 01/12/2025 Reason Onset Date Comments Care 02/02/2025 US Specialty Diagnoses / Procedures Referred By Contac t Referred To Contact [facility] Diagnoses 7 weeks gestation of (HCC) Procedures OBSTETRIC ULTRASOUND WHI US PREG UTERUS AFTER 1ST TRIMEST GESTATION Mary Kate Peralta, PRETTY.CULINARY WORKER [address] [place] [address] Phone: tel: fax: [address] [phone] Referral ID Status Reason Start Date Expiration Date V isits Requested Visits Authorized [id number] Closed Auto-Generate d Referral 11/03/2024 11/03/2025 1 1 Reason Comments Results Reason Comments Colposcopy Specialty Diagnoses / Procedures Referred By Contac t Referred To Contact [facility] Diagnoses ASCUS with positive high risk HPV cervical Procedures COLPOSCOPY COLPOSCOPY CERVIX BX CERVIX & ENDOCRV CURRETAGE Mary Kate Peralta, PRETTY.CULINARY WORKER [address] [place] [address] Phone: tel: fax: [facility] [address] [place] [address] Referral ID Status Reason Start Date Expiration Date V isits Requested Visits Authorized [id number] Closed Auto-Generate d Referral 11/20/2024 11/20/2025 1 [...] BE BASED ON THE PRIMARY CLINICAL RECORDS. [employer] [facility]. provides no warranty or guarantee of the accuracy or completeness of information in this document.
[2025-06-14 19:55] LABS: Hematocrit 35.3 % (37-47); Hemoglobin 11.4 g/dL (12.0-15.0); Immature Granulocytes Count 0.030 X10^3/uL (0.0-0.0); Mean Corp Hgb Conc 32.3 g/dL (32-36); Mean Corpuscular Volume 86.3 fL (81-99); Mean Platelet Vol. 10.6 fl (6.2-12.0); NRBC Flagged by Analyzer 0 % (0-5); Platelet Count 360 K/mm3 (150-450); RBC Distribution Width CV 14.7 % (11.6-14.6); RBC Distribution Width SD 46.5 fl (35.1-43.9); Red Blood Count 4.09 M/mm3 (4.2-5.4); White Blood Count 10.2 K/mm3 (4.4-11.0)
[2025-06-14 20:27] LABS: Syphilis Antibodies Nonreactive (Nonreactive)
[2025-06-14 20:40] LABS: Uric Acid 5.3 mg/dL (2.6-6.0)
[2025-06-14 20:43] LABS: AST(SGOT) 24 U/L (<=31); Alanine Aminotransfer ALT/SGPT 10 U/L (<=34)
--- NOTE | 2025-06-14 21:25 | PCM.HP.OB ---
HPI - General General Date of Admission: 06/14/25 Date of Service: 06/14/25 Chief Complaint: Induction of labor HPI Narrative JES MALIK, is a 29 F who presents induction for BMI >40. Initial BP 140/91 Maternal Data Information Final ROGER: 06/21/25 Gestational age: 39 [facility] Medical History ASCUS (atypical squamous cells of undetermined significance) on gynecologic Papanicolaou smear complicating , antepartum Depression Anxiety Home Medications ?Medication ?Instructions ?Recorded ?Last Taken ?Type aspirin 81 mg tablet,delayed 81 mg PO DAILY 06/14/25 06/13/25 History release fluoxetine 10 mg capsule 10 mg PO DAILY anxiety 06/14/25 06/13/25 History Allergy/AdvReac Type Severity Reaction Status Date / Time amoxicillin AdvReac Intermediate Nausea/Vom/ Verified 06/14/25 19:42 Diarrhea clavulanic acid (From AdvReac Intermediate Nausea/Vom/ Verified 06/14/25 19:42 Augmentin) Diarrhea Surgical History History of colposcopy Social History Smoking Status: Current every day smoker tobacco type: smokeless tobacco History Elective abortions Hx Para 0 Spontaneous abortions Hx # Term Pregnancies Ectopic pregnancies Hx # Pregnancies Multiple births # of living children NST FHR Rate Baby A Baseline: 130 Variability:: Moderate Accelerations:: 15 x 15 Decelerations:: None NST Reactive:: Yes Uterine Activity:: occasional ROS Constitutional Constitutional: Denies fatigue, fever(s) or malaise Eyes Eyes: Denies change in vision ENT HEENT: Denies dizziness or headache(s) Cardiovascular Cardiovascular: Denies chest pain, dyspnea or lightheadedness Respiratory/Chest Respiratory/Chest: Denies cough or dyspnea Gastrointestinal Gastrointestinal: Denies change in bowel habits Genitourinary Genitourinary: Denies burning urination or genital lesions Integumentary Integumentary: Denies rash Neurologic Neurologic: Denies confusion, dizziness, headache(s), numbness or weakness Vital Signs Vital Signs Vital Signs: 06/14/25 19:35 06/14/25 19:35 06/14/25 19:35 Temperature Temperature Source Temporal Pulse Rate 107 H Respiratory Rate Blood Pressure 143/91 H BP Systolic 143 BP Diastolic 91 06/14/25 19:35 06/14/25 19:35 Temperature 97.8 F Temperature Source Pulse Rate Respiratory Rate 16 Blood Pressure BP Systolic BP Diastolic Weight Weight: 105.687 kg Body Mass Index (BMI) 41.3 PRE- weight 101.151 kg PRE- Body Mass Index 39.4 (BMI) Physical Exam Const alert and no apparent distress General Appearance: cooperative HEENT normocephalic Resp normal respiratory effort Cardio regular rate GI soft to palpation GI Narrative: gravid, nontender, appropriate for gestational age Extremity no calf tenderness General Extremity: edema Skin no wounds Rashes: No rashes noted Psych activity/motor behavior normal Labs Labs Labs: Blood Type O POSITIVE Antibody Screen NEGATIVE Hct, (37-47) 35.3 % L Hgb, (12.0-15.0) 11.4 g/dL L Syphilis Total Ab, (Nonreactive) Nonreactive Assessment & Plan (1) 39 weeks gestation of : (2) Obesity affecting in third trimester: QUALIFIERS: Obesity type affecting : unspecified obesity Qualified Code(s): O99.213 - Obesity complicating , third trimester (3) Encounter for induction of labor: PLAN: Plan cytotec/li GBS negative epidural prn
[2025-06-14 22:12] VITALS: BMI 20251221.0; BMI 2155.0
[2025-06-14 23:00] LABS: Creatinine, Urine (random) 119.00 mg/dL (28.00-217.00); Protein, Urine (Random) 10.4 mg/dL (0.0-12.0); Protein:Creat Ratio 87 mg/g CRE (0-200)
[2025-06-14 23:44] VITALS: BP 139/75; PULSE 101
[2025-06-14 23:45] VITALS: RESP 16; TEMP 36.6
[2025-06-15] VITALS (33 sets, daily range): BP systolic 103–150; BP diastolic 56–109; PULSE 72–146; RESP 14–18; TEMP 36.1–37.3; O2SAT 92–97
--- NOTE | 2025-06-15 06:13 | PN.OBGYN_ITS ---
Subjective Subjective S/p 2 doses of cytotec. Sudden onset of FHR variable. AROM for clear fluid and internal monitors placed. 260/-2 mid position Objective Data Objective Data Vital Signs: Vital Signs Temp Pulse Resp BP 97.6 F L 72 14 126/72 H 06/15/25 03:56 06/15/25 03:56 06/15/25 03:56 06/15/25 03:56 Weight: 105.687 kg Body Mass Index (BMI) 41.3 Intake & Output: Intake and Output for Last 24 Hours 06/13/25 06/14/25 06/15/25 23:59 23:59 23:59 Intake Total 0.83 / 0.83 Balance 0.83 / 0.83 Lab / Micro Data 06/14/25 19:40 06/14/25 19:40 Labs: Laboratory Results - last 24 hr 06/14/25 19:40: WBC 10.2, RBC 4.09 L, Hgb 11.4 L, Hct 35.3 L, MCV 86.3, MCH 27.9, MCHC 32.3, RDW Std Deviation 46.5 H, RDW Coeff of Sg 14.7 H, Plt Count 360, MPV 10.6, Immature Gran % (Auto) 0.300, Neut % (Auto) 66.6, Lymph % (Auto) 24.0, [place] % (Auto) 7.5, Eos % (Auto) 1.1, Baso % (Auto) 0.5, Absolute Neuts (auto) 6.8, Absolute Lymphs (auto) 2.45, Nucleated RBC % 0, Creatinine 0.54 L, Estim Creat Clear Calc 180.50, Est GFR (MDRD) Non-Af 128, Uric Acid 5.3, AST 24, ALT 10, Syphilis Total Ab Nonreactive, Blood Type O POSITIVE, Antibody Screen NEGATIVE 06/14/25 21:50: U Random Total Protein 10.4, Urine Creatinine 119.00, Protein/Creatinin Ratio 87 NST FHR Rate Baby A Baseline: 145 Variability:: Moderate Accelerations:: 15 x 15 Decelerations:: Variable FHR Category:: Category II Assessment & Plan (1) Encounter for induction of labor: (2) Obesity affecting in third trimester: QUALIFIERS: Obesity type affecting : unspecified obesity Qualified Code(s): O99.213 - Obesity complicating , third trimester (3) 39 weeks gestation of : PLAN: Plan Pit prn epidural prn
[2025-06-15] MEDS: fentaNYL-bupivacaine (epidural) 100 ML BAG EPIDURAL (08:30)
--- NOTE | 2025-06-15 08:31 | PCM.PN.CNM ---
Subjective Subjective Assumed management of patient. Breathing through contractions. Planning on epidural for pain management. Objective Data Objective Data Vital Signs: Vital Signs Temp Pulse Resp BP 97.0 F L 77 18 123/79 H 06/15/25 08:19 06/15/25 08:21 06/15/25 08:19 06/15/25 08:21 Weight: 233 lb Body Mass Index (BMI) 41.3 Intake & Output: Intake and Output for Last 24 Hours 06/13/25 06/14/25 06/15/25 23:59 23:59 23:59 Intake Total 0.83 / 0.83 308.33 / 308.33 Balance 0.83 / 0.83 308.33 / 308.33 Lab / Micro Data 06/14/25 19:40 06/14/25 19:40 Labs: Laboratory Results - last 24 hr 06/14/25 19:40: WBC 10.2, RBC 4.09 L, Hgb 11.4 L, Hct 35.3 L, MCV 86.3, MCH 27.9, MCHC 32.3, RDW Std Deviation 46.5 H, RDW Coeff of Sg 14.7 H, Plt Count 360, MPV 10.6, Immature Gran % (Auto) 0.300, Neut % (Auto) 66.6, Lymph % (Auto) 24.0, [place] % (Auto) 7.5, Eos % (Auto) 1.1, Baso % (Auto) 0.5, Absolute Neuts (auto) 6.8, Absolute Lymphs (auto) 2.45, Nucleated RBC % 0, Creatinine 0.54 L, Estim Creat Clear Calc 180.50, Est GFR (MDRD) Non-Af 128, Uric Acid 5.3, AST 24, ALT 10, Syphilis Total Ab Nonreactive, Blood Type O POSITIVE, Antibody Screen NEGATIVE 06/14/25 21:50: U Random Total Protein 10.4, Urine Creatinine 119.00, Protein/Creatinin Ratio 87 Assessment & Plan (1) Encounter for induction of labor: (2) Obesity affecting in third trimester: QUALIFIERS: Obesity type affecting : unspecified obesity Qualified Code(s): O99.213 - Obesity complicating , third trimester (3) 39 weeks gestation of : (4) Depression: (5) Anxiety: PLAN: Plan GBS negative Contractions every 1-2 minutes- breathing through contractions Not running pitocin at this time IUPC and FSE previously placed 2cm/60/-[address] indicated [address] Nix notified and is collaborating physician
[2025-06-15] MEDS: Lactated Ringers 1,000 ML 200 ML IV (10:02)
--- NOTE | 2025-06-15 12:39 | PCM.PN.CNM ---
Subjective Subjective Patient seen at bedside. Complete dilation and nursing to start pushing with patient. Objective Data Objective Data Vital Signs: Vital Signs Temp Pulse Resp BP Pulse Ox 97.9 F 114 H 16 134/74 H 92 06/15/25 11:55 06/15/25 12:27 06/15/25 11:55 06/15/25 12:27 06/15/25 08:41 Weight: 233 lb Body Mass Index (BMI) 41.3 Intake & Output: Intake and Output for Last 24 Hours 06/13/25 06/14/25 06/15/25 23:59 23:59 23:59 Intake Total 0.83 / 0.83 966.66 / 966.66 Balance 0.83 / 0.83 966.66 / 966.66 Lab / Micro Data 06/14/25 19:40 06/14/25 19:40 Labs: Laboratory Results - last 24 hr 06/14/25 19:40: WBC 10.2, RBC 4.09 L, Hgb 11.4 L, Hct 35.3 L, MCV 86.3, MCH 27.9, MCHC 32.3, RDW Std Deviation 46.5 H, RDW Coeff of Sg 14.7 H, Plt Count 360, MPV 10.6, Immature Gran % (Auto) 0.300, Neut % (Auto) 66.6, Lymph % (Auto) 24.0, [place] % (Auto) 7.5, Eos % (Auto) 1.1, Baso % (Auto) 0.5, Absolute Neuts (auto) 6.8, Absolute Lymphs (auto) 2.45, Nucleated RBC % 0, Creatinine 0.54 L, Estim Creat Clear Calc 180.50, Est GFR (MDRD) Non-Af 128, Uric Acid 5.3, AST 24, ALT 10, Syphilis Total Ab Nonreactive, Blood Type O POSITIVE, Antibody Screen NEGATIVE 06/14/25 21:50: U Random Total Protein 10.4, Urine Creatinine 119.00, Protein/Creatinin Ratio 87 Assessment & Plan (1) Anxiety: (2) Depression: (3) Encounter for induction of labor: (4) Obesity affecting in third trimester: QUALIFIERS: Obesity type affecting : unspecified obesity Qualified Code(s): O99.213 - Obesity complicating , third trimester (5) 39 weeks gestation of : PLAN: Plan Comfortable with epidural Pushing with contractions Anticipate
--- NOTE | 2025-06-15 13:28 | OB.VAGDELI_ITS ---
Assessment & Plan (1) (spontaneous vaginal delivery): (2) Anxiety: (3) Depression: (4) Obesity affecting in third trimester: QUALIFIERS: Obesity type affecting : unspecified obesity Qualified Code(s): O99.213 - Obesity complicating , third trimester (5) Laceration, obstetrical, first degree: (6) Laceration, obstetrical, second degree: Maternal Data Information ROGER Calculator Estimated Delivery Date Method Current WG Current Estimate 06/21/25 Manual 39w 1d Vaginal Delivery Maternal Presentation Maternal Presentation: Medically Indicated Induction Maternal Presentation: at 39.1 weeks gestation for induction of labor for obesity. Type of Induction: Amniotomy and Cytotec Medical Reason for Induction: Maternal Medical Condition: list: (obesity) Vaginal Delivery Information Procedure Performed: Spontaneous Vaginal Delivery Surgeon/Practitioner: Latesha Moeller Date of Procedure: 06/15/25 Pre-Procedure Diagnosis: Term gestation, induction of labor Post-Procedure Diagnosis: , Live male infant Type of anesthesia: Epidural Estimated Blood Loss: 350 Time of Delivery: 12:58 Findings Description of procedure: Patient progressed to complete dilation. With good maternal effort, head delivered- loose nuchal cord easily reduced, followed by anterior shoulder and remainder of infant body without any force, delay, or traction. Vigorous male was delivered atraumatically and placed on maternal abdomen. Pitocin IV started for active management of the third stage of labor. Patient's IV was infiltrated and Pitocin IM ordered at this time. 3 vessel cord clamped and cut by FOB after delay and placed immediately skin to skin with patient. Placenta delivered spontaneously and intact. A first degree vaginal laceration and second degree perineal laceration was repaired in usual fashion using 3-0 Vicryl. Hemostasis obtained. Vaginal sweep performed. Fundus is firm 2 below U and bleeding is hemostatic. Sponge and sharps counts correct. Patient and bonding well at this time. Dr. Nix notified of delivery. Routine post orders placed. Presentation: Vertex Amniotic Membrane Rupture Type: Artificial Amniotic Fluid Description: Clear Placental Delivery Description: Spontaneous Placenta Disposition: [facility] Specimen collected: No Cord Vessel Description: 3 Vessels Cord Entanglement: Around neck x 1, loose Nuchal Cord Compression: Without compression Infant A Gender: Male (1 minute): 8 (5 minute): 9 Delayed Cord Clamping: Yes Employment Educational Coord agriculture science teacher: No Post Vaginal Deli Medications given after delivery: IV Pitocin and IM Pitocin (due to IV being infiltrated) Episiotomy Description: None Laceration: Perineal Extension/lac, Vaginal Extension/lac, 1st degree and 2nd degree Complication Complications: No
[2025-06-15] MEDS: GLYCERIN/WITCH HAZEL (TUCKS) MED..PAD 1 EACH TOPICAL (19:33)
[2025-06-16 04:45] VITALS: BP 128/88; PULSE 98; RESP 14; TEMP 36.4; O2SAT 98
[2025-06-16] MEDS: SELF ADMINISTRATION OF MEDS 1 EACH NOTE (08:53)
[2025-06-16 09:00] VITALS: BP 119/68; PULSE 86; RESP 18; TEMP 36.2; O2SAT 98
[2025-06-16 12:00] VITALS: BP 130/73; PULSE 95; RESP 16; TEMP 36.3; O2SAT 98
--- NOTE | 2025-06-16 12:15 | CASEMGMT ---
Social Work Assessment Labor and Delivery Unit Patient Address: [facility] [address] [place] [address] Phone number: [phone] Date of Referral: 06/16/25 Time of Referral:?1120 Referred By: Latesha Moeller CNM Date of Intervention: 06/16/25 Time of Intervention:?1145 Reason for Referral:?hx of anxiety History obtained from: medical records, mother of baby (MOB), father of baby (FOB) Household composition: MOB reports that currently residing in the home is herself and FOB, with baby boy, Ken Donovan, to be added to home when ready for discharge. MOB states housing to be safe and secure. Patient's parent/guardian status:?RAJINDER reports that FOB is significant other, Terell Bella. Terell reportedly has a 7 year old daughter who is occasionally at the home as well. Medical History: ?RAJINDER is a 29 year old female who is 1, para 0 now 1 following labor and delivery of . RAJINDER received routine care during with [facility]. RAJINDER presented to hospital for scheduled induction at 38 weeks gestation on 06/14/25. baby boy, Ken Donovan, was born weighing 6 lbs, 1oz with apgars of 8 and 9 at one and five minutes of life respectively. RAJINDER is planning to breast and bottle feed baby and baby will be followed by Cesar Garcia at [facility] for pediatrics. Educational Status:?RAJINDER has a high school diploma and works at [employer]. Financial Status: RAJINDER works at [employer] and has 8 weeks off to stay with baby. FOB is a hernández and has off until 06/29/25. Supplies: MOB has obtained all necessary baby supplies, including: car seat, safe sleep space, clothes, diapers, and wipes. MOB reports to having all needed bottles and nipples to feed baby if needing to supplement with formula. Childcare/Caregiver(s):?MOB reports that MOB's father and mother will be primary childcare help aside from MOB and FOB. Transportation:?MOB reports to both her and FOB having reliable transportation. Programs/Agencies Involved: MOB denies having any current or past agency involvement. Children Services/Legal Issues:?MOB and FOB both deny having any current or past legal issues or children's services involvement. Behavioral Health Issues: ??Mental Health History:?MOB has anxiety and took Prozac throughout . FOB denies mental health history. Substance Use History: MOB vapes smokeless tobacco on a daily basis, per chart review. Family History:?N/A?? Drug Screens: N/A Family/Social Stressors:? MOB and FOB both deny any current stressors at this time. Support Systems: MOB states that MOB's parents are their main supports currently. Depression/Shaken Baby/Safe Sleeping: SW educated MOB on signs and symptoms of baby blues and mood and anxiety disorders to be mindful of during this period. MOB states ability to talk with FOB or MOB's mother if she were to struggle with mental health during this time. SW encouraged patient to talk with her OBGYN as well if she begins struggling. SW educated MOB and FOB on shaken baby prevention and ABCs of safe sleep; both expressed understanding. ASSESSMENT:?MOB and baby admitted following labor and delivery. MOB has mental health history of anxiety and depression. This is MOB's first child, but FOB's second child. MOB states anxiety medication to be helpful and reports understanding symptoms to be aware of regarding depression and anxiety. MOB talkative and open with SW during completion of assessment. FOB answered questions when asked, but FOB appeared and reported to be tired from the night. MOB's mother also at bedside. Baby was observed sleeping in bassinet during assessment. MOB and FOB were receptive to resources provided and discussed. Safe Plan of Care for infant related to substance use:? N/A PLAN:?? No other services requested or indicated. MOB and baby to be discharged when medically ready. Parents were provided literature regarding: signs and symptoms of baby blues and mood and anxiety disorders, Help Me Grow, shaken baby prevention, ABCs of safe sleep and a list of county resources that are available for them should any needs present themselves. Rochelle Mendoza, ADOBE DEVELOPER, VENDING MACHINE REFILLER
--- NOTE | 2025-06-16 12:21 | PCM.PN.OB ---
Subjective Subjective Denies complaints Objective Data Objective Data Vital Signs: Vital Signs Temp Pulse Resp BP Pulse Ox O2 Del Method 97.5 F L 98 14 128/88 H 98 Room Air 06/16/25 04:45 06/16/25 04:45 06/16/25 04:45 06/16/25 04:45 06/16/25 04:45 06/16/25 04:45 Oxygen Delivery Method Room Air Weight: 233 lb Body Mass Index (BMI) 41.3 Intake & Output: Intake and Output for Last 24 Hours 06/14/25 06/15/25 06/16/25 23:59 23:59 23:59 Intake Total 0.83 / 0.83 1559.99 / 1559.99 Output Total 950 / 950 Balance 0.83 / 0.83 609.99 / 609.99 Lab / Micro Data 06/14/25 19:40 06/14/25 19:40 Physical Exam Const alert, oriented x3 and no apparent distress HEENT normocephalic GI soft to palpation, non-tender and non-distended GI Narrative: fundus firm, mid & below umbilicus Extremity normal to inspection and no calf tenderness Assessment & Plan (1) (spontaneous vaginal delivery): COMMENT: PPD#1 PLAN: Plan D/c home later today per patient request
--- NOTE | 2025-06-16 12:23 | PCM.DC.SUM ---
Providers Date of Admission: 06/14/25 Primary Care Physician: Susy Price, [employer]SEMBLER-[employer] Reason For Visit: INDUCTION VAG DEL Diagnosis Discharge Diagnosis (1) (spontaneous vaginal delivery): Status: Acute Code(s): O80 - Encounter for full-term uncomplicated delivery Plan D/c home later today per patient request Medications at Discharge Home Medications fluoxetine 10 mg capsule 10 mg PO DAILY anxiety 06/14/25 acetaminophen 500 mg tablet 1,000 mg (2 x 500 mg) PO Q6H PRN PRN Pain 1-10 Or Fever #0 tabs 06/16/25 naproxen 500 mg tablet 500 mg PO Q8H PRN PRN Pain Score 1-10 #0 tabs 06/16/25 Hospital Course Operations None Procedures None Summary of Care Provided Minutes Spent on Discharge: 15 Weight / BMI Weight Weight: 233 lb Body Mass Index (BMI) 41.3 PRE- weight 223 lb PRE- Body Mass Index 39.4 (BMI) ABG / Lab / Microbiology Data 06/14/25 19:40 06/14/25 19:40 D/C Instructions Discharge Activity: May Shower May resume sexual activity in: 6 weeks Weight Bearing Status: Weight bearing as tolerated Call your doctor if you observe: Fever of 101 or Higher, Coldness, Increased Pain, Change in Color, Inability to urinate, Inability to have a bowel movement, Using more than 1 pad per hour, Shortness of breath, Dizziness, Fainting spells, Chest pain, Increased palpitations (irregular heartbeat), Calf discomfort and Uncontrolled pain DC O2, CPAP, BIPAP Needs Home O2 Discharge instructions: No Please Follow Up With: Latesha Moeller CNM When: Follow up in 2 and 6 weeks for visits. Meaningful Use Info Meaningful Use Meaningful Use Diagnoses (Choose all that apply): None applicable Discharge Plan Admission Admit Date/Time: 06/14/25 19:25 Primary Reason for Your Visit: Vaginal delivery Attending Provider: Latesha Moeller Primary Care Provider: Susy Price NP Discharge Orders/Prescriptions Prescriptions: New acetaminophen 500 mg Tablet 1,000 mg PO Q6H PRN PRN (Reason: Pain 1-10 Or Fever) Qty: 0 0RF naproxen 500 mg Tablet 500 mg PO Q8H PRN PRN (Reason: Pain Score 1-10) Qty: 0 0RF Continued fluoxetine 10 mg capsule 10 mg PO DAILY Discontinued aspirin 81 mg tablet,delayed release (DR/EC) 81 mg PO DAILY Referrals / Follow Up: Susy Price W[employer]ARNESS ASSEMBLER, [employer]BLER[employer] [Primary Care Provider, Family Practice] Disposition Disposition (needs filled in before D/C Order can be placed): Home, Self Care
[2025-06-16 17:00] VITALS: BP 130/75; PULSE 96; RESP 16; TEMP 36.1; O2SAT 97
== END 2025-06-16 18:59 | disposition home or self-care (01) | DRG 807 ==
PROVIDERS: Obstetrics & Gynecology; Admitting Provider Advanced Practice Midwife; PCP Nurse Practitioner Primary Care; Referring Provider Advanced Practice Midwife; Visit Provider Advanced Practice Midwife
DX: O99.214 Obesity complicating childbirth (principal); Z37.0 Single live birth; O99.344 Other mental disorders complicating childbirth; F17.290 Nicotine dependence, other tobacco product, uncomplicated; F32.A Depression, unspecified; F41.9 Anxiety disorder, unspecified; O99.334 Smoking (tobacco) complicating childbirth; O70.1 Second degree perineal laceration during delivery; Z3A.39 39 weeks gestation of pregnancy; O69.81X0 Labor and delivery complicated by cord around neck, without compression, not applicable or unspecified; O70.0 First degree perineal laceration during delivery
CPT/HCPCS: 59025; 59050; 82565; 82570; 84156; 84450; 84460; 84550; 85025; 86780; 86850; 86900; 86901; 99221; G0378; J2405